=== PATIENT | female | born 1975 | race Caucasian/White ===

== ENCOUNTER 2018-02-23 12:01 | Outpatient (CLI) | payer MEDICAID, SELFPAY ==
--- NOTE | 2018-02-23 11:50 | DI.RAD_ITS ---
SYMPTOMS/DIAGNOSIS: BRONCHITIS, ? PNEUMONIA, J40 PA AND LATERAL CHEST: Pulmonary hyperinflation is demonstrated. There is a small region of increased density involving the lateral portion of the left lower lobe which would be consistent with a small region of pneumonitis. The lungs are otherwise free of infiltrate. There is no pleural effusion. The cardiovascular structures are intact. SUMMARY: Findings consistent with pulmonary hyperinflation and a small region of left lower lobe pneumonitis.
== END 2018-02-23 12:21 ==
PROVIDERS: PCP Family Medicine; Visit Provider Family Medicine
DX: J18.9 Pneumonia, unspecified organism (principal); J40 Bronchitis, not specified as acute or chronic; J98.4 Other disorders of lung
CPT/HCPCS: 71046

== ENCOUNTER 2018-03-27 10:22 | Emergency (ER) | payer MEDICAID, SELFPAY ==
[2018-03-27 10:31] VITALS: BP 128/88; PULSE 79; RESP 16; TEMP 37; O2SAT 100
--- NOTE | 2018-03-27 10:48 | W.ED.GENAD ---
Discharge Plan Disposition Patient Disposition: HOME Condition: Good Discharge Details Chief Complaint: Cellulitis Clinical Impression: Abscess of left leg Primary Care Provider: Job Mars ED Provider: Delano Moon Home Meds and New Rx's Prescriptions: New sulfamethoxazole-trimethoprim [Bactrim DS] 800-160 mg tablet 1 tab PO BID Qty: 14 RF: 0 amoxicillin-pot clavulanate [Augmentin] 875-125 mg tablet 1 tab PO BID Qty: 14 RF: 0 Continue dexmethylphenidate 10 mg tablet 10 mg PO DAILY RF: 0 gabapentin 300 mg capsule 900 mg PO TID RF: 0 topiramate [Topamax] 50 mg tablet 50 mg PO BID RF: 0 dexmethylphenidate 30 mg capsule,ER biphasic 50-50 30 mg PO QAM RF: 0 bupropion HCl [Wellbutrin XL] 150 mg tablet extended release 24 hr 300 mg PO DAILY RF: 0 albuterol sulfate [Ventolin HFA] 90 mcg/actuation HFA aerosol inhaler 1 puff IH Q6H PRN (Reason: shortness of breath or wheezing) Qty: 8.5 RF: 3 trazodone 100 MG tablet 100 mg PO HS Qty: 90 RF: 0 Discharge Instructions Instructions: Abscess (ED) Additional Instructions: if you have high fevers or redness spreading up the leg return to the emergency department follow up with your primary care provider within 2 weeks Discharge Data Discharge Physician: Delano Moon Medical Decision Making 42 yo female with hx of opiate addiction comes in with wound to the left lower leg for about a week, apparently she relapsed recently and injected wellbutrin a few weeks ago in multiple areas. Has multiple areas on her arms and legs where she injected, with the only two at this time that appear infected on the right and left lower leg. She appears to have had an abscess of the right lower leg that is already opened. I incised the left leg abscess as well. No fevers, no severe pain or crepitus so doubt nec fasc or sepsis. Denies losing any needle tips so do not feel xray for foreign body indicated. Will start po abx, advised f/u with pcp and return precautions given she has a therapist she sees for addiction and declined any additional services for her addiction at this time Differential Diagnosis abscess, cellulitis HPI General Mode of arrival: ambulatory. Date/Time Provider Initiated Documentation: 03/27/18 10:30. Limitations to Documentation: no limitations. Information obtained by: patient. History of Present Illness 42 year old F presents to the emergency department with the chief complaint of left leg abscess, described as mild, with intensity rated at 2. Quality is described as burning, and is localized to the left and lower extremity. Patient reports no radiation. Patient started experiencing this week(s) (1) and it has been constant. No relieving factors improve symptom(s), No exacerbating factors reported . Patient notes no other symptoms.. Patient did receive the following treatments prior to arrival, none Related Data Home Medications Medication Instructions Recorded Confirmed trazodone 100 mg PO HS #90 tab-cap 06/26/17 03/27/18 bupropion HCl XL 150 mg 24 hr 300 mg PO DAILY tab-cap 02/09/18 03/27/18 tablet, extended release dexmethylphenidate 10 mg tablet 10 mg PO DAILY tab 02/09/18 03/27/18 dexmethylphenidate ER 30 mg 30 mg PO QAM 02/09/18 03/27/18 capsule,extended release [id number] gabapentin 300 mg capsule 900 mg PO TID cap 02/09/18 03/27/18 topiramate 50 mg tablet 50 mg PO BID 02/09/18 03/27/18 albuterol sulfate HFA 90 1 puff IH Q6H PRN #8.5 gm 02/23/18 03/27/18 mcg/actuation aerosol inhaler amoxicillin-pot clavulanate 1 tab PO BID #14 tab 03/27/18 [Augmentin] sulfamethoxazole-trimethoprim 1 tab PO BID #14 tab 03/27/18 [Bactrim DS] Previous Rx's Medication Instructions Recorded trazodone 100 mg PO HS #90 tab-cap 06/26/17 albuterol sulfate HFA 90 1 puff IH Q6H PRN #8.5 gm 02/23/18 mcg/actuation aerosol inhaler amoxicillin-pot clavulanate 1 tab PO BID #14 tab 03/27/18 [Augmentin] sulfamethoxazole-trimethoprim 1 tab PO BID #14 tab 03/27/18 [Bactrim DS] Allergies Allergy/AdvReac Type Severity Reaction Status Date / Time diphenhydramine HCl AdvReac paradoxical Verified 03/27/18 10:35 [From Benadryl] stimulant General Stated Complaint: Cellulitis CARMINE: 4 Review of Systems Review of Systems All systems reviewed & are unremarkable except as noted in HPI and below Constitutional Denies chills, Denies fever(s) and Denies weakness Eyes Denies loss of vision ENT Denies change in voice Cardiovascular Denies chest pain and Denies dyspnea Respiratory Denies dyspnea Gastrointestinal Denies abdominal pain, Denies nausea and Denies vomiting Genitourinary Denies dysuria Musculoskeletal Denies joint swelling Neurologic Denies loss of vision and Denies weakness Psychiatric Denies depression Endocrine Denies cold intolerance and Denies heat intolerance Allergic/Immunologic Denies urticaria PFSH Family History Father Alcohol abuse Mother No problems noted. 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 working smoke detector in home: Yes fire extinguisher in home: Yes carbon monox detector in home: Yes firearms in home: No victim of physical abuse: No victim of emotional abuse: No victim of sexual abuse: No Surgical History History of dilatation and curettage (Acute) History of dilatation and curettage (Inactive) Exam Const General: no acute distress Orientation: alert HENMT Head: normal to inspection Ears: external ears normal General nose exam: external nose normal Mouth: moist mucous membranes Eyes General: appearance normal, both eyes and all related structures Neck Neck: normal visual inspection Resp Effort & Inspection: normal respiratory effort and able to speak in complete sentences Cardio Rate: regular rate Skin General skin exam: other (left leg abscess 1x2cm in anterior mid tibia with 1cm surrounding erythema, no crepitus or severe pain, open right medial lower leg wound with 1cm erythema, no crepitus or severe pain) Neuro General: alert and oriented x3 Psych Mental Status: mental status grossly normal Course Vital Signs Temperature 37 C 03/27/18 10:31 Pulse 79 03/27/18 10:31 Respiratory Rate 16 03/27/18 10:31 Blood Pressure 128/88 03/27/18 10:31 Pulse Oximetry 100 03/27/18 10:31 Temperature 37 C 03/27/18 10:31 Temperature Source Skin 03/27/18 10:31 Pulse 79 03/27/18 10:31 Respiratory Rate 16 03/27/18 10:31 Respiratory Effort Non-Labored 03/27/18 10:31 Blood Pressure 128/88 03/27/18 10:31 Pulse Oximetry 100 03/27/18 10:31 Oxygen Delivery Method Room Air 03/27/18 10:31 Oxygen Flow Rate 0 03/27/18 10:31 Pain Level 6 03/27/18 10:31 Procedures Abscess I/D Site: Lower Extremity Side (if applicable): Left Sedation/analgesia: None Local Anesthetic: Lidocaine 1% Amount of anesthesia used (mL): 5 Technique: Incised with #11 Blade Amount of fluid expressed (mL): 10 Irrigation: Yes Packing used?: None Complications: Other (none)
--- NOTE | 2018-03-27 10:55 | ED.GENADUL_ITS ---
Discharge Plan Disposition Patient Disposition: HOME Condition: Good Discharge Details Chief Complaint: Cellulitis Clinical Impression: Abscess of left leg Primary Care Provider: Job Mars ED Provider: Delano Moon Home Meds and New Rx's Prescriptions: New sulfamethoxazole-trimethoprim [Bactrim DS] 800-160 mg tablet 1 tab PO BID Qty: 14 RF: 0 amoxicillin-pot clavulanate [Augmentin] 875-125 mg tablet 1 tab PO BID Qty: 14 RF: 0 Continue dexmethylphenidate 10 mg tablet 10 mg PO DAILY RF: 0 gabapentin 300 mg capsule 900 mg PO TID RF: 0 topiramate [Topamax] 50 mg tablet 50 mg PO BID RF: 0 dexmethylphenidate 30 mg capsule,ER biphasic 50-50 30 mg PO QAM RF: 0 bupropion HCl [Wellbutrin XL] 150 mg tablet extended release 24 hr 300 mg PO DAILY RF: 0 albuterol sulfate [Ventolin HFA] 90 mcg/actuation HFA aerosol inhaler 1 puff IH Q6H PRN (Reason: shortness of breath or wheezing) Qty: 8.5 RF: 3 trazodone 100 MG tablet 100 mg PO HS Qty: 90 RF: 0 Discharge Instructions Instructions: Abscess (ED) Additional Instructions: if you have high fevers or redness spreading up the leg return to the emergency department follow up with your primary care provider within 2 weeks Discharge Data Discharge Physician: Delano Moon Medical Decision Making 42 yo female with hx of opiate addiction comes in with wound to the left lower leg for about a week, apparently she relapsed recently and injected wellbutrin a few weeks ago in multiple areas. Has multiple areas on her arms and legs where she injected, with the only two at this time that appear infected on the right and left lower leg. She appears to have had an abscess of the right lower leg that is already opened. I incised the left leg abscess as well. No fevers, no severe pain or crepitus so doubt nec fasc or sepsis. Denies losing any needle tips so do not feel xray for foreign body indicated. Will start po abx, advised f/u with pcp and return precautions given she has a therapist she sees for addiction and declined any additional services for her addiction at this time Differential Diagnosis abscess, cellulitis HPI General Mode of arrival: ambulatory . Date/Time Provider Initiated Documentation: 03/27/18 10:30 . Limitations to Documentation: no limitations . Information obtained by: patient . History of Present Illness 42 year old F presents to the emergency department with the chief complaint of left leg abscess, described as mild, with intensity rated at 2. Quality is described as burning, and is localized to the left and lower extremity. Patient reports no radiation. Patient started experiencing this week(s) (1) and it has been constant. No relieving factors improve symptom(s), No exacerbating factors reported . Patient notes no other symptoms.. Patient did receive the following treatments prior to arrival, none Related Data Home Medications Medication Instructions Recorded Confirmed trazodone 100 mg PO HS #90 tab-cap 06/26/17 03/27/18 bupropion HCl XL 150 mg 24 hr 300 mg PO DAILY tab-cap 02/09/18 03/27/18 tablet, extended release dexmethylphenidate 10 mg tablet 10 mg PO DAILY tab 02/09/18 03/27/18 dexmethylphenidate ER 30 mg 30 mg PO QAM 02/09/18 03/27/18 capsule,extended release [id number] gabapentin 300 mg capsule 900 mg PO TID cap 02/09/18 03/27/18 topiramate 50 mg tablet 50 mg PO BID 02/09/18 03/27/18 albuterol sulfate HFA 90 1 puff IH Q6H PRN #8.5 gm 02/23/18 03/27/18 mcg/actuation aerosol inhaler amoxicillin-pot clavulanate 1 tab PO BID #14 tab 03/27/18 [Augmentin] sulfamethoxazole-trimethoprim 1 tab PO BID #14 tab 03/27/18 [Bactrim DS] Previous Rx's Medication Instructions Recorded trazodone 100 mg PO HS #90 tab-cap 06/26/17 albuterol sulfate HFA 90 1 puff IH Q6H PRN #8.5 gm 02/23/18 mcg/actuation aerosol inhaler amoxicillin-pot clavulanate 1 tab PO BID #14 tab 03/27/18 [Augmentin] sulfamethoxazole-trimethoprim 1 tab PO BID #14 tab 03/27/18 [Bactrim DS] Allergies Allergy/AdvReac Type Severity Reaction Status Date / Time diphenhydramine HCl AdvReac paradoxical Verified 03/27/18 10:35 [From Benadryl] stimulant General Stated Complaint: Cellulitis CARMINE: 4 Review of Systems Review of Systems All systems reviewed & are unremarkable except as noted in HPI and below Constitutional Denies chills, Denies fever(s) and Denies weakness Eyes Denies loss of vision ENT Denies change in voice Cardiovascular Denies chest pain and Denies dyspnea Respiratory Denies dyspnea Gastrointestinal Denies abdominal pain, Denies nausea and Denies vomiting Genitourinary Denies dysuria Musculoskeletal Denies joint swelling Neurologic Denies loss of vision and Denies weakness Psychiatric Denies depression Endocrine Denies cold intolerance and Denies heat intolerance Allergic/Immunologic Denies urticaria PFSH Family History Father Alcohol abuse Mother No problems noted. 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 working smoke detector in home: Yes fire extinguisher in home: Yes carbon monox detector in home: Yes firearms in home: No victim of physical abuse: No victim of emotional abuse: No victim of sexual abuse: No Surgical History History of dilatation and curettage (Acute) History of dilatation and curettage (Inactive) Exam Const General: no acute distress Orientation: alert HENMT Head: normal to inspection Ears: external ears normal General nose exam: external nose normal Mouth: moist mucous membranes Eyes General: appearance normal, both eyes and all related structures Neck Neck: normal visual inspection Resp Effort & Inspection: normal respiratory effort and able to speak in complete sentences Cardio Rate: regular rate Skin General skin exam: other (left leg abscess 1x2cm in anterior mid tibia with 1cm surrounding erythema, no crepitus or severe pain, open right medial lower leg wound with 1cm erythema, no crepitus or severe pain) Neuro General: alert and oriented x3 Psych Mental Status: mental status grossly normal Course Vital Signs Temperature 37 C 03/27/18 10:31 Pulse 79 03/27/18 10:31 Respiratory Rate 16 03/27/18 10:31 Blood Pressure 128/88 03/27/18 10:31 Pulse Oximetry 100 03/27/18 10:31 Temperature 37 C 03/27/18 10:31 Temperature Source Skin 03/27/18 10:31 Pulse 79 03/27/18 10:31 Respiratory Rate 16 03/27/18 10:31 Respiratory Effort Non-Labored 03/27/18 10:31 Blood Pressure 128/88 03/27/18 10:31 Pulse Oximetry 100 03/27/18 10:31 Oxygen Delivery Method Room Air 03/27/18 10:31 Oxygen Flow Rate 0 03/27/18 10:31 Pain Level 6 03/27/18 10:31 Procedures Abscess I/D Site: Lower Extremity Side (if applicable): Left Sedation/analgesia: None Local Anesthetic: Lidocaine 1% Amount of anesthesia used (mL): 5 Technique: Incised with #11 Blade Amount of fluid expressed (mL): 10 Irrigation: Yes Packing used?: None Complications: Other (none)
== END 2018-03-27 11:01 | disposition home or self-care (01) ==
LOC: ER 11:13
PROVIDERS: Emergency Provider Emergency Medicine; PCP Family Medicine
DX: L02.416 Cutaneous abscess of left lower limb (principal); L02.415 Cutaneous abscess of right lower limb; F11.288 Opioid dependence with other opioid-induced disorder
CPT/HCPCS: 10060

== ENCOUNTER 2018-06-30 10:39 | Emergency (ER) | payer MEDICAID, SELFPAY ==
--- NOTE | 2018-06-30 10:40 | W.ED.GENAD ---
Discharge Plan Disposition Patient Disposition: HOME Condition: Stable Discharge Details Chief Complaint: Cellulitis Clinical Impression: Abscess of leg, right Primary Care Provider: Job Mars ED Provider: Delano Moon Home Meds and New Rx's Prescriptions: New sulfamethoxazole-trimethoprim [Bactrim DS] 800-160 mg tablet 1 tab PO BID Qty: 14 RF: 0 amoxicillin-pot clavulanate [Augmentin] 875-125 mg tablet 1 tab PO BID Qty: 14 RF: 0 Continued dexmethylphenidate 10 mg tablet 10 mg PO DAILY RF: 0 gabapentin 300 mg capsule 900 mg PO TID RF: 0 topiramate [Topamax] 50 mg tablet 50 mg PO BID RF: 0 dexmethylphenidate 30 mg capsule,ER biphasic 50-50 30 mg PO QAM RF: 0 Ventolin HFA 90 mcg/actuation HFA aerosol inhaler 1 puff IH Q6H PRN (Reason: shortness of breath or wheezing) Qty: 8.5 RF: 3 trazodone 100 MG tablet 100 mg PO HS Qty: 90 RF: 0 Multi For Her 18 mg iron-600 mcg-40 mcg Capsule 1 tab-cap PO QAM RF: 0 Discharge Instructions Instructions: Abscess (ED) Additional Instructions: You had an abscess drained Try and soak the wound several times a day you should be contacted with an appointment with general surgery for follow up if you have severe worsening pain or fevers, or redness spreading up/down the leg return to the emergency department Medical Decision Making 42 yo female with prior hx of substance abuse but has been sober for months per pt, comes in with several days of rash to the right posterior calf. Denies fevers, chills or severe pain. She has a 3x4 cm fluctuance with overlying erythema of the proximal posterior right lower leg. Has no crepitus or other findings to suggest nec fasc. I incised and drained copious amounts of purulent bloody material. Will start po abx and have her f/u with general surgery for abscess recheck in case it needs to be redrained. HAs no fever and apperas well systemically so doubt sepsis at this time. Return precautions given Differential Diagnosis abscess, cellulitis HPI General Mode of arrival: ambulatory. Date/Time Provider Initiated Documentation: 06/30/18 10:39. Limitations to Documentation: no limitations. Information obtained by: patient. History of Present Illness 42 year old F presents to the emergency department with the chief complaint of right leg rash, described as moderate, with intensity rated at 4. Quality is described as aching, and is localized to the right and lower extremity. Patient reports no radiation. Patient started experiencing this day(s) (2) and it has been constant. No relieving factors improve symptom(s), No exacerbating factors reported . Patient did receive the following treatments prior to arrival, none Related Data Home Medications Medication Instructions Recorded Confirmed trazodone 100 mg PO HS #90 tab-cap 06/26/17 06/30/18 dexmethylphenidate 10 mg tablet 10 mg PO DAILY tab 02/09/18 06/30/18 dexmethylphenidate ER 30 mg 30 mg PO QAM 02/09/18 06/30/18 capsule,extended release [id number] gabapentin 300 mg capsule 900 mg PO TID cap 02/09/18 06/30/18 topiramate 50 mg tablet 50 mg PO BID 02/09/18 06/30/18 albuterol sulfate HFA 90 1 puff IH Q6H PRN #8.5 gm 02/23/18 06/30/18 mcg/actuation aerosol inhaler Multi For Her 1 tab-cap PO QAM 06/30/18 06/30/18 amoxicillin-pot clavulanate 1 tab PO BID #14 tab 06/30/18 [Augmentin] sulfamethoxazole-trimethoprim 1 tab PO BID #14 tab 06/30/18 [Bactrim DS] Previous Rx's Medication Instructions Recorded trazodone 100 mg PO HS #90 tab-cap 06/26/17 albuterol sulfate HFA 90 1 puff IH Q6H PRN #8.5 gm 02/23/18 mcg/actuation aerosol inhaler amoxicillin-pot clavulanate 1 tab PO BID #14 tab 06/30/18 [Augmentin] sulfamethoxazole-trimethoprim 1 tab PO BID #14 tab 06/30/18 [Bactrim DS] Allergies Allergy/AdvReac Type Severity Reaction Status Date / Time diphenhydramine HCl AdvReac paradoxical Verified 06/30/18 10:47 [From Benadryl] stimulant General CARMINE: 4 Review of Systems Review of Systems All systems reviewed & are unremarkable except as noted in HPI and below Constitutional Denies chills, Denies fever(s) and Denies weakness Eyes Denies loss of vision ENT Denies change in voice Cardiovascular Denies chest pain and Denies dyspnea Respiratory Denies dyspnea Gastrointestinal Denies abdominal pain, Denies nausea and Denies vomiting Genitourinary Denies dysuria Musculoskeletal Denies joint swelling Neurologic Denies loss of vision and Denies weakness Psychiatric Denies depression Endocrine Denies cold intolerance and Denies heat intolerance PFSH Social History adopted: No foster care: Yes household members: significant other number of children: 3 pets and animals: Yes Smoking/Tobacco Use Status: Current every day alcohol intake: former substance use type: former substance user Date of last use: December 2017 [place] for 30d seatbelt use: always helmet use: Yes 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 working smoke detector in home: Yes fire extinguisher in home: Yes carbon monox detector in home: Yes firearms in home: No victim of physical abuse: No victim of emotional abuse: No victim of sexual abuse: No Exam Const General: no acute distress Orientation: alert HENMT Head: normal to inspection Ears: external ears normal General nose exam: external nose normal Mouth: moist mucous membranes Eyes General: appearance normal, both eyes and all related structures Neck Neck: normal visual inspection Resp Effort & Inspection: normal respiratory effort and able to speak in complete sentences Cardio Rate: regular rate Skin General skin exam: elasticity normal Neuro General: alert and oriented x3 Extrem General: full ROM and normal capillary refill Psych Mental Status: mental status grossly normal Procedures Abscess I/D Site: Lower Extremity Side (if applicable): Right Local Anesthetic: Lidocaine 2% Amount of anesthesia used (mL): 5 Technique: Incised with #11 Blade Amount of fluid expressed (mL): 10 Irrigation: No Packing used?: None Complications: Bleeding
[2018-06-30 10:43] VITALS: BP 143/86; PULSE 14; TEMP 36.6; O2SAT 99
--- NOTE | 2018-06-30 10:56 | ED.GENADUL_ITS ---
Discharge Plan Disposition Patient Disposition: HOME Condition: Stable Discharge Details Chief Complaint: Cellulitis Clinical Impression: Abscess of leg, right Primary Care Provider: Job Mars ED Provider: Delano Moon Home Meds and New Rx's Prescriptions: New sulfamethoxazole-trimethoprim [Bactrim DS] 800-160 mg tablet 1 tab PO BID Qty: 14 RF: 0 amoxicillin-pot clavulanate [Augmentin] 875-125 mg tablet 1 tab PO BID Qty: 14 RF: 0 Continued dexmethylphenidate 10 mg tablet 10 mg PO DAILY RF: 0 gabapentin 300 mg capsule 900 mg PO TID RF: 0 topiramate [Topamax] 50 mg tablet 50 mg PO BID RF: 0 dexmethylphenidate 30 mg capsule,ER biphasic 50-50 30 mg PO QAM RF: 0 Ventolin HFA 90 mcg/actuation HFA aerosol inhaler 1 puff IH Q6H PRN (Reason: shortness of breath or wheezing) Qty: 8.5 RF: 3 trazodone 100 MG tablet 100 mg PO HS Qty: 90 RF: 0 Multi For Her 18 mg iron-600 mcg-40 mcg Capsule 1 tab-cap PO QAM RF: 0 Discharge Instructions Instructions: Abscess (ED) Additional Instructions: You had an abscess drained Try and soak the wound several times a day you should be contacted with an appointment with general surgery for follow up if you have severe worsening pain or fevers, or redness spreading up/down the le g return to the emergency department Medical Decision Making 42 yo female with prior hx of substance abuse but has been sober for months per pt, comes in with several days of rash to the right posterior calf. Denies fevers, chills or severe pain. She has a 3x4 cm fluctuance with overlying erythema of the proximal posterior right lower leg. Has no crepitus or other findings to suggest nec fasc. I incised and drained copious amounts of purulent bloody material. Will start po abx and have her f/u with general surgery for abscess recheck in case it needs to be redrained. HAs no fever and apperas well systemically so doubt sepsis at this time. Return precautions given Differential Diagnosis abscess, cellulitis HPI General Mode of arrival: ambulatory . Date/Time Provider Initiated Documentation: 06/30/18 10:39 . Limitations to Documentation: no limitations . Information obtained by: patient . History of Present Illness 42 year old F presents to the emergency department with the chief complaint of right leg rash, described as moderate, with intensity rated at 4. Quality is described as aching, and is localized to the right and lower extremity. Patient reports no radiation. Patient started experiencing this day(s) (2) and it has been constant. No relieving factors improve symptom(s), No exacerbating factors reported . Patient did receive the following treatments prior to arrival, none Related Data Home Medications Medication Instructions Recorded Confirmed trazodone 100 mg PO HS #90 tab-cap 06/26/17 06/30/18 dexmethylphenidate 10 mg tablet 10 mg PO DAILY tab 02/09/18 06/30/18 dexmethylphenidate ER 30 mg 30 mg PO QAM 02/09/18 06/30/18 capsule,extended release [id number] gabapentin 300 mg capsule 900 mg PO TID cap 02/09/18 06/30/18 topiramate 50 mg tablet 50 mg PO BID 02/09/18 06/30/18 albuterol sulfate HFA 90 1 puff IH Q6H PRN #8.5 gm 02/23/18 06/30/18 mcg/actuation aerosol inhaler Multi For Her 1 tab-cap PO QAM 06/30/18 06/30/18 amoxicillin-pot clavulanate 1 tab PO BID #14 tab 06/30/18 [Augmentin] sulfamethoxazole-trimethoprim 1 tab PO BID #14 tab 06/30/18 [Bactrim DS] Previous Rx's Medication Instructions Recorded trazodone 100 mg PO HS #90 tab-cap 06/26/17 albuterol sulfate HFA 90 1 puff IH Q6H PRN #8.5 gm 02/23/18 mcg/actuation aerosol inhaler amoxicillin-pot clavulanate 1 tab PO BID #14 tab 06/30/18 [Augmentin] sulfamethoxazole-trimethoprim 1 tab PO BID #14 tab 06/30/18 [Bactrim DS] Allergies Allergy/AdvReac Type Severity Reaction Status Date / Time diphenhydramine HCl AdvReac paradoxical Verified 06/30/18 10:47 [From Benadryl] stimulant General CARMINE: 4 Review of Systems Review of Systems All systems reviewed & are unremarkable except as noted in HPI and below Constitutional Denies chills, Denies fever(s) and Denies weakness Eyes Denies loss of vision ENT Denies change in voice Cardiovascular Denies chest pain and Denies dyspnea Respiratory Denies dyspnea Gastrointestinal Denies abdominal pain, Denies nausea and Denies vomiting Genitourinary Denies dysuria Musculoskeletal Denies joint swelling Neurologic Denies loss of vision and Denies weakness Psychiatric Denies depression Endocrine Denies cold intolerance and Denies heat intolerance PFSH Social History adopted: No foster care: Yes household members: significant other number of children: 3 pets and animals: Yes Smoking/Tobacco Use Status: Current every day alcohol intake: former substance use type: former substance user Date of last use: December 2017 Marco Antonio [place] for 30d seatbelt use: always helmet use: Yes 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 working smoke detector in home: Yes fire extinguisher in home: Yes carbon monox detector in home: Yes firearms in home: No victim of physical abuse: No victim of emotional abuse: No victim of sexual abuse: No Exam Const General: no acute distress Orientation: alert HENMT Head: normal to inspection Ears: external ears normal General nose exam: external nose normal Mouth: moist mucous membranes Eyes General: appearance normal, both eyes and all related structures Neck Neck: normal visual inspection Resp Effort & Inspection: normal respiratory effort and able to speak in complete sentences Cardio Rate: regular rate Skin General skin exam: elasticity normal Neuro General: alert and oriented x3 Extrem General: full ROM and normal capillary refill Psych Mental Status: mental status grossly normal Procedures Abscess I/D Site: Lower Extremity Side (if applicable): Right Local Anesthetic: Lidocaine 2% Amount of anesthesia used (mL): 5 Technique: Incised with #11 Blade Amount of fluid expressed (mL): 10 Irrigation: No Packing used?: None Complications: Bleeding
--- NOTE | 2018-07-01 09:15 | PDOC.ERCMPRO ---
Care Management Progress Note 07/01-Dr. Moon requested assistance with a surgical f/u within a week for wound check. Referral faxed to [facility] this am.
--- NOTE | 2018-07-01 09:17 | CMPROGNOTE_ITS ---
Care Management Progress Note 07/01-Dr. Moon requested assistance with a surgical f/u within a week for wound check. Referral faxed to [facility] this am.
== END 2018-06-30 11:17 | disposition home or self-care (01) ==
PROVIDERS: Emergency Provider Emergency Medicine; PCP Family Medicine
DX: L02.415 Cutaneous abscess of right lower limb (principal)
CPT/HCPCS: 10060; 87077; 87070; 87205

== ENCOUNTER 2019-01-12 12:23 | Emergency (ER) | payer MEDICAID, SELFPAY ==
[2019-01-12 12:23] VITALS: BP 113/87; PULSE 84; RESP 18; TEMP 36.6; O2SAT 99
--- NOTE | 2019-01-12 12:30 | W.ED.GENAD ---
Discharge Plan Disposition Patient Disposition: HOME Condition: Fair Discharge Details Chief Complaint: OD/Poison Clinical Impression: Overdose, Peripheral nerve palsy Primary Care Provider: Job Mars ED Provider: Aryan Salamanca Home Meds and New Rx's Prescriptions: No Action Ventolin HFA 90 mcg/actuation HFA aerosol inhaler 1 puff IH Q6H PRN (Reason: shortness of breath or wheezing) Qty: 8.5 RF: 3 trazodone 100 MG tablet 100 mg PO HS Qty: 90 RF: 0 dexmethylphenidate 35 mg capsule,ER biphasic 50-50 35 mg PO QAM RF: 0 gabapentin 300 mg capsule 800 mg PO TID RF: 0 topiramate [Topamax] 50 mg tablet 25 mg PO BID RF: 0 Multi For Her 18 mg iron-600 mcg-40 mcg Capsule 1 tab-cap PO QAM RF: 0 sulfamethoxazole-trimethoprim [Bactrim DS] 800-160 mg tablet 1 tab PO BID Qty: 14 RF: 0 amoxicillin-pot clavulanate [Augmentin] 875-125 mg tablet 1 tab PO BID Qty: 14 RF: 0 Discharge Instructions Instructions: Opioid Overdose (ED) Additional Instructions: Numbness and tingling in your feet can be secondary to a peripheral nerve palsy however there is concern that there may be something in your brain or spine. Although this is less likely if at any point he would like the imaging that we discussed please return immediately for this. Please follow-up closely with your primary care provider at your scheduled appointment on Thursday. If you need any help or resources for your struggles with opiate please contact us for help. Please use the Narcan as directed. If you notice any worsening of your symptoms, or any new symptoms such as vomiting, diarrhea, fever, chills, shortness of breath, chest pain, numbness, weakness, or fainting , please return immediately to the emergency department for reevaluation. Please follow up with your primary care provider as soon as possible for reassessment and reevaluation. As always, it was a pleasure participating in your medical care today. Referrals: Job Mars DO [Primary Care Provider] - Medical Decision Making This is a 43-year-old female with a past medical history of illicit drug use who presents today for overdose. She states that earlier today she snorted notable amount of heroin, and subsequently overdose. She was given Narcan by her significant other, and then Narcan by EMS which brought her back to normal mental status after an initial episode of unresponsiveness but no apnea. She does admit to numbness and tingling in her feet bilaterally as well as mild weakness in the feet but normal sensation and strength for the knees, thighs and hips. The remainder of her exam is otherwise benign. No focal neurologic deficits aside for what is noted in the feet. Suspect that the foot issue secondary to peripheral etiology from her being in the seated position on her buttock for an extended period of time. The patient is refusing any imaging or labs at this time. She does not want any help or resources. She denies any homicidal or suicidal ideations. We will observe and reassess for the Narcan to be worn off. 2:52 PM Prolonged observation. Greater than 2 hours was observed. The patient had no relapse into decreased mental status, hypoxemia, or bradypnea. Repeat physical exam was performed, the patient continues to demonstrate normal strength and sensation all the way to the ankle. She is able to flex her knees, and extend her knees, all movements of the hips are normal. 5 out of 5 strength for all components except for the feet. Sensation is present bilaterally for the feet for the dorsal and plantar aspects, sensation is slightly reduced however she does have hot and cold differentiation, pinprick and soft touch sensation throughout her feet. Strength is still notably reduced versus near absent for flexion and extension of the feet and toes. Capillary refill remains brisk, dorsalis pedis posterior tibial pulses are +2 bilaterally. Although the patient's overdose component seems to have resolved, she still demonstrates this notable abnormality for her feet. No other significant abnormality, or signs of vascular compromise. Presentation is notably atypical. I am concerned that it may represent a transient palsy secondary to the position that she was in while overdose. She continues to show no evidence of rectal tone decreased, decrease in perirectal sensation or midline back pain. The remainder of her neuro exam is otherwise benign and normal. I discussed with the patient getting the labs initially discussed, as well as imaging of her head and spine. Discussing the risks and benefits, the patient would like to hold off for the time being on any imaging or labs. She would like to go home immediately. I had a long discussion about the risks of this, including , disability, or other unforeseen consequence. Patient states that she understands this. She has made it very clear that she would like to go home and see how it does. She does follow-up with her primary care provider in the next 48 hours. With no other signs of central nerve cord compression, no other significant abnormalities on exam patient's wishes will be respected and she will be discharged home. We did give her Narcan prior to discharge, to use at home. Did recommend avoiding any illicit substances, as well as the importance of seeking counseling help. Services were provided to the patient, and resources were also made available. Patient does not want any additional help or services at this time. Currently respecting the patient's wishes, but against my own recommendations the patient will be discharged home. We discussed the importance of prompt return if she is any changes in thought in regards to the imaging and labs that we discussed previously. I have extensively reviewed the treatment plan and discharge instructions with the patient and their family. I have addressed all patient concerns at this time. The patient and family was made aware of what symptoms to monitor for that would warrant a return to the emergency department. Discussed the plan with the patient and family, they demonstrate verbal understanding and agreement with our assessment and plan at this time. HPI General Date/Time Provider Initiated Documentation: 01/12/19 12:30. HPI Narrative: This is a pleasant 43-year-old female who presents today for evaluation after overdose. Patient states that prior to arrival she snorted a notable amount of heroin, however it was not more than she normally would. She overdosed after this. The patient was given Narcan by her significant other, and subsequently some more Narcan by EMS at which point she had a complete and normal return of mental status. Since then she has been doing well. She has had no confusion, headache, neck pain, shortness of breath. She has been notably intense with EMS staff. She does admit to tingling in her feet bilaterally. She has overdose in the past. She denies any other complaints at this time. She does not want any labs or imaging at this time. She denies any homicidal or suicidal ideations. She denies any other drug use currently. She denies alcohol intake. She does not want any help, or resources. She states that she was recently discharged from a rehab facility. No other complaints modifying factors at this time. Related Data Home Medications Medication Instructions Recorded Confirmed trazodone 100 mg PO HS #90 tab-cap 06/26/17 06/30/18 albuterol sulfate 90 mcg/actuation 1 puff IH Q6H PRN #8.5 gm 02/23/18 06/30/18 aerosol inhaler Multi For Her 1 tab-cap PO QAM 06/30/18 06/30/18 amoxicillin-pot clavulanate 1 tab PO BID #14 tab 06/30/18 [Augmentin] sulfamethoxazole-trimethoprim 1 tab PO BID #14 tab 06/30/18 [Bactrim DS] dexmethylphenidate 35 mg 35 mg PO QAM 08/17/18 capsule,extended release [id number] gabapentin 300 mg capsule 800 mg PO TID cap 09/28/18 topiramate 50 mg tablet 25 mg PO BID tab 09/28/18 Previous Rx's Medication Instructions Recorded trazodone 100 mg PO HS #90 tab-cap 06/26/17 albuterol sulfate 90 mcg/actuation 1 puff IH Q6H PRN #8.5 gm 02/23/18 aerosol inhaler amoxicillin-pot clavulanate 1 tab PO BID #14 tab 06/30/18 [Augmentin] sulfamethoxazole-trimethoprim 1 tab PO BID #14 tab 06/30/18 [Bactrim DS] Allergies Allergy/AdvReac Type Severity Reaction Status Date / Time diphenhydramine HCl AdvReac paradoxical Verified 01/12/19 12:34 [From Benadryl] stimulant General Stated Complaint: OD/Poison CARMINE: 3 Review of Systems Review of Systems All systems reviewed & are unremarkable except as noted in HPI and below PFSH Social History Smoking/Tobacco Use Status: Current every day Tobacco Type: cigarettes Alcohol Intake: current Alcohol Intake frequency: a few times a week Drug use: Occasionally Substance use type: marijuana and heroin Adopted: No Foster care: Yes Household members: significant other Number of Children: 3 Pets and animals: Yes Seatbelt use: always Helmet use: Yes 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 3.ENT: Atraumatic external nose and ears. Moist MM. Neck: Symmetric, trachea midline, No thyromegaly. 4.CVS: +S1/S2, No murmurs or gallops. Peripheral pulses 2+ and equal in all extremities. Brisk capillary refill in all extremities. 5.RESP: Unlabored respiratory effort. Clear to auscultation bilaterally. No wheezes rales or rhonchi 6.GI: Soft, Nontender/Nondistended, No hepatosplenomegaly. No guarding or rebound. 7.MSK: Normocephalic/Atraumatic, Extremities w/o deformity or ttp No cyanosis or clubbing, Normal movement of all extremities 8.Skin: Warm, Dry. No rashes or lesions. 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 Notable decrease in sensation for her feet bilaterally. Decreased plantar and dorsiflexion strength. No midline tenderness to palpation over the CTLS spine. Normal ROM in flexion, extension, side bend, and rotation. Patient has +5 out of 5 strength in the lower extremities in d knee flexion and extension, hip flexion and extension. There is +2 over 2 dorsalis pedis pulses bilaterally. There is normal sensation to the skin with light touch at the foot, knee, and hip. Normal saddle sensation. Rectal exam demonstrates normal rectal tone and sensation. Reflexes are +2 over 4 in the patellar reflex bilaterally. +5 out of 5 strength in the medial, ulnar, radial nerve distribution bilaterally in the hands as well as intact light touch sensation to these dermatomes on the hands 10.Psych: (AAO) x3. Appropriate mood and affect, somewhat unhappy with her current state and being here in the ED Course Vital Signs Temperature 36.6 C 01/12/19 12:23 Pulse 84 01/12/19 12:23 Respiratory Rate 18 01/12/19 12:23 Blood Pressure 113/87 01/12/19 12:23 Pulse Oximetry 99 01/12/19 12:23 Temperature 36.6 C 01/12/19 12:23 Temperature Source Skin 01/12/19 12:23 Pulse 84 01/12/19 12:23 Respiratory Rate 18 01/12/19 12:23 Blood Pressure 113/87 01/12/19 12:23 Pulse Oximetry 99 01/12/19 12:23 Oxygen Delivery Method Room Air 01/12/19 12:23 Oxygen Flow Rate 0 01/12/19 12:23 Pain Level 0 01/12/19 12:23
== END 2019-01-12 14:58 | disposition home or self-care (01) ==
LOC: ER 15:01
PROVIDERS: Emergency Provider Student in an Organized Health Care Education/Training Program; PCP Family Medicine
DX: T40.1X1A Poisoning by heroin, accidental (unintentional), initial encounter (principal); G58.9 Mononeuropathy, unspecified
CPT/HCPCS: 99283

== ENCOUNTER 2019-01-18 10:44 | Inpatient (IN) | payer MEDICAID, SELFPAY ==
[2019-01-18 10:49] VITALS: BP 121/72; PULSE 74; RESP 12; TEMP 36.6; O2SAT 99
--- NOTE | 2019-01-18 11:36 | ED.GENADUL_ITS ---
Discharge Plan Discharge Details Chief Complaint: Orthopedic Admit Date/Time: 01/18/19 17:12 Admit Provider: Jadiel Shah Attending Provider: Jadiel Shah Primary Care Provider: Job Mars ED Provider: Fidel Cardozo Discharge Data Discharge Date/Time-TO BE ENTERED AT DEPARTURE: 01/18/19 17:43 Medical Decision Making <Seferino Stuart NP - Last Filed: 01/19/19 16:11> Patient presenting to the emergency department for chief complaint of bilateral numbness and tingling to feet and ankles and difficulty moving nails. Patient states that this started after she overdosed on heroin approximately 6 days ago. Patient denies any known injury or trauma and states that they feel like [id number]. Physical exam shows bilateral lower extremity nonpitting edema to both hands and feet, no erythema, sensation to hot cold sharp and dull is intact but slightly diminished on the left more than the right, DTRs are also intact, patient has inability to dorsiflex and plantar flex along with inversion and eversion of the ankles bilateral. Patient does have slight movement of her toes on the right but none on the left. The hip and other lower extremity exam is unremarkable. Patient has no saddle anesthesia, normal bowel bladder function. She denies any chest pain shortness of breath. Plan to check labs due to lower extremity edema along with edema to her hands Review of labs shows a anemia, mildly elevated ESR, AST and ALT elevated negative troponin. Patient has normal BNP. EKG was performed and reviewed with attending physician likely he and shows rate of 60, sinus rhythm, shortened OH but otherwise non-diagnostic. Patient reassessed and continues to complain of symptoms. Reviewed previous records and spoke with patient further and there was notation of this occurring after her overdose as stated and imaging was offered. Patient states that she is mostly here for imaging and because she still cannot normally ambulate. imaging of the lumbar spine and head was ordered. These images were reviewed with radiologist and are negative for any acute findings. Given odd presentation I spoke with Dr. Gee, neurologist, in regards to patient's condition. She recommended PT assessment and given that patient is getting around on a walker she stated possible admission if patient cannot walk appropriately otherwise outpatient follow-up with neurology office. <Fidel Cardozo MD - Last Filed: 01/19/19 02:39> 17:15 -- Care signed out by JOSUÉ Stuart with plan to follow-up on PT and care management recommendations. PT notes patient unable to ambulate and recommends admission given ambulatory dysfunction. Care management agrees with observation hospitalization. I called and spoke with Dr. Shah who will admit the patient. Bridging orders being placed to the floor. HPI <Seferino Stuart NP - Last Filed: 01/19/19 16:11> General Mode of arrival: wheelchair . Date/Time Provider Initiated Documentation: 01/18/19 10:53 . Limitations to Documentation: no limitations . Information obtained by: patient, family and RN notes reviewed . History of Present Illness 43 year old F presents to the emergency department with the chief complaint of feet numbness and swelling to feet and hands, described as moderate, with intensity rated at 6. Quality is described as other (stinging), and is localized to the lower extremity (bilateral feet). Patient started experiencing this day(s) (6) and it has been constant. No relieving factors improve symptom(s), Patient notes no other symptoms.. Patient did receive the following treatments prior to arrival, none Related Data Home Medications Medication Instructions Recorded Confirmed trazodone 100 mg PO HS #90 tab-cap 06/26/17 01/18/19 dexmethylphenidate 35 mg 35 mg PO QAM 08/17/18 01/18/19 capsule,extended release [id number] gabapentin 300 mg capsule 800 mg PO TID cap 09/28/18 01/18/19 topiramate 50 mg tablet 25 mg PO BID tab 09/28/18 01/18/19 Previous Rx's Medication Instructions Recorded trazodone 100 mg PO HS #90 tab-cap 06/26/17 Allergies Allergy/AdvReac Type Severity Reaction Status Date / Time diphenhydramine HCl AdvReac paradoxical Verified 01/18/19 10:55 [From Benadryl] stimulant General Stated Complaint: Orthopedic CARMINE: 3 Review of Systems <Seferino Stuart NP - Last Filed: 01/19/19 16:11> Constitutional Denies chills, Denies fever(s) and Denies headache(s) ENT Denies headache(s) Cardiovascular Denies chest pain, Denies irregular heart rhythm, Reports claudication, Reports leg edema, Denies lightheadedness and Denies dyspnea Respiratory Denies dyspnea Gastrointestinal Denies abdominal pain Musculoskeletal Reports as per HPI, Reports numbness and Reports tingling Neurologic Denies headache(s), Reports numbness, Denies sensory deficit and Reports tingling PFSH <Seferino Stuart NP - Last Filed: 01/19/19 16:11> Medical History Anxiety Depression Opiate dependence Surgical History History of dilatation and curettage (Inactive) History of dilatation and curettage (Acute) Family History Father Alcohol abuse Mother No problems noted. 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 Working smoke detector in home: Yes Fire extinguisher in home: Yes Carbon monox detector in home: Yes Firearms in home: No Do you feel safe at home: Yes Do you feel safe in your relationship?: Yes Victim of physical abuse: No Victim of emotional abuse: No Victim of sexual abuse: No Exam <Seferino Stuart NP - Last Filed: 01/19/19 16:11> Const General: cooperative, healthy appearing, comfortable and no acute distress Orientation: alert, awake and oriented x3 Resp Effort & Inspection: normal respiratory effort and able to speak in complete sentences Auscultation: clear to auscultation bilaterally Cardio Rate: regular rate Rhythm: regular rhythm Heart Sounds: S1 normal, S2 normal, no click, no gallops, no murmurs and no rubs Pulses: dorsalis pedis pulses present bilaterally 2+ and normal peripheral pulses Skin Rashes: no rashes Nails: normal and no splinter hemorrhages Neuro General: alert, awake, oriented x3, tone normal, moves all extremities, not confused, not obtunded and unable to assess gait Cognition: normal cognition Speech: speech normal Motor: strength abnormal distal lower extremity flexion 0 / 5, extension 0 / 5, abduction 0 / 5 and adduction 0 / 5 Sensory Exam: no sensory deficits noted DTR's: Rt Patellar: 2+, Lt Patellar: 2+, Rt Ankle: 1+ and Lt Ankle: 1+ Extrem General: normal capillary refill, no joint enlargement, no calf tenderness bilaterally, edema Laterality: bilateral (hands, wrist down. ) and pedal edema (ankle down) bilaterally (2+ non- pitting) Course <Seferino Stuart NP - Last Filed: 01/19/19 16:11> Vital Signs Temperature 36.6 C 01/18/19 10:49 Pulse 74 01/18/19 10:49 Respiratory Rate 12 01/18/19 10:49 Blood Pressure 121/72 01/18/19 10:49 Pulse Oximetry 99 01/18/19 10:49 Temperature 36.6 C 01/18/19 10:49 Temperature Source Temporal Artery Scan 01/18/19 10:49 Pulse 74 01/18/19 10:49 Respiratory Rate 12 01/18/19 10:49 Respiratory Effort Non-Labored 01/18/19 10:51 Blood Pressure 121/72 01/18/19 10:49 Blood Pressure Position Sitting 01/18/19 10:49 Pulse Oximetry 99 01/18/19 10:49 Oxygen Delivery Method Room Air 01/18/19 10:49 Oxygen Flow Rate 0 01/18/19 10:49 Pain Level 6 01/18/19 10:53 Sign Out <Seferino Stuart NP - Last Filed: 01/19/19 16:11> Sign Out Data: Sign Out Comment: Patient pending physical therapy consult and care management assessment. Last updated by Seferino Stuart NP at 01/18/19 16:29
[2019-01-18 12:40] LABS: Abs Immature Grans 0.01 k/cumm (0.0-0.09); Absolute Basophil Count 0.02 k/cumm (0.0-0.2); Absolute Eosinophil Count 0.29 k/cumm (0.0-0.7); Absolute Monocyte Count 0.56 k/cumm (0.11-0.7); Absolute Neutrophil Count 6.46 k/cumm (1.2-6.7); Basophils % 0.2; Eosinophils % 3.1; HGB 11.1 g/dL (12.0-15.5); Immature Grans % 0.1; Lymphocytes % 20.6; Mean Corp. HGB Concentration 30.8 g/dL (32.0-36.0); Mean Corpuscular Hemoglobin 25.6 pg (27.0-33.0); Mean Corpuscular Volume 82.9 fL (80-95); Mean Platelet Volume 9.4 fL (8.0-11.0); Monocytes % 6.1; Neutrophils % 69.9; Platelet Count 305 x1000/uL (130-400); RBC 4.34 m/cumm (4.00-5.20); RBC Distribution Width 21.1 % (11.7-14.6); White Blood Cell Count 9.24 k/cumm (4.4-10.8)
[2019-01-18 12:54] LABS: Anisocytosis 2+; Diff Comment RBC Morph Reviewed
[2019-01-18 12:57] LABS: Hypochromasia 2+; Microcytosis 2+; Poikilocytes 2+; Polychromasia Present
[2019-01-18 12:58] LABS: Basophilic Stippling 2+
[2019-01-18 13:10] LABS: ALT 136 U/L (12-78); AST 233 U/L (15-37); Albumin 2.9 g/dL (3.4-5.0); Alkaline Phosphatase 107 U/L (46-116); Anion Gap 7.3 mmol/L (3-11); BUN 16 mg/dL (7-18); Bilirubin, Total 0.7 mg/dL (0.2-1.0); CO2 27.7 mmol/L (21.0-32.0); CREATININE 0.81 mg/dL (0.55-1.02); Calcium 8.4 mg/dL (8.5-10.1); Chloride 106 mmol/L (98-107); Glucose 111 mg/dL (70-100); Magnesium 1.9 mg/dL (1.8-2.4); NT-proBNP 251 pg/mL; Potassium 4.1 mmol/L (3.5-5.1); Sodium 141 mmol/L (136-145); Total Protein 7.1 g/dL (6.4-8.2)
[2019-01-18 13:12] LABS: Troponin I < 0.05 ng/mL (0.00-0.06)
[2019-01-18 13:17] LABS: ESR 21 mm/hr (0-20)
--- NOTE | 2019-01-18 15:42 | DI.CT_ITS ---
SYMPTOMS/DIAGNOSIS: NEURO DEFICIT, BILATERAL FOOT WEAKNESS, NUMBNESS, LEFT > RIGHT, S/P FALL 5 DAYS AGO, IV DRUG USER CRANIAL CT: Noncontrast cranial CT was performed. The ventricular system is normal in appearance. There is no evidence of an intracranial mass lesion. There is no evidence of a subdural or epidural hematoma. No focal areas of decreased attenuation are seen. There are apparent chronic changes of mucoperiosteal thickening in right maxillary antrum and a few mastoid air cells. CONCLUSION: Normal noncontrast cranial CT. LUMBOSACRAL SPINE CT: CT examination of the lumbosacral spine was performed utilizing multislice acquisition and multiplanar reconstruction. Visualized portions of the lung bases are unremarkable. Adrenals and kidneys appear intact as visualized. Abdominal aorta is of normal diameter. No bony abnormality seen apart from minimal hypertrophic degenerative changes of the facet joints at L5-S1. There is a disc bulge at L5-S1 without evidence of disc herniation. Otherwise, intervertebral discs appear normal. Neural foramina and bony spinal canal appear normal. SI joints show minimal degenerative change. No adenopathy identified in the visualized pelvis. CONCLUSION: Mild disc bulge at L5-S1. No disc herniation or other significant finding.
--- NOTE | 2019-01-18 16:54 | PT.INIE ---
Date of service: 01/18/19 Time of Service: 16:17 PT Notes Inpatient Physical Therapy Evaluation Date: 01/18/2019 Referring Doctor: Seferino Stuart MD PT Orders: PT CONSULT: Assess gait and ankle weakness Precautions: Fall. Standard. Patient Profile/Admitting Diagnosis: Patient is a 43-year-old female who presented to the ED on 01/18/2019 with chief complaints of numbness and tingling of bilateral feet and ankles that began to appear 6 days ago when she overdosed on heroin and was found on the ground by first responders. CT scan of head and lumbosacral spine were unremarkable. Referral was made to assess safety of gait performance and readiness for discharge. PMHX: Social History/Home Situation: Current Functional Limitations: Inability to safely walk due to bilateral steppage gait Equipment Owned/DME: [facility] Subjective: Patient is agreeable to a PT consult. She states that 6 days ago she started feeling symptoms of numbness on bilateral feet. She reports instability when standing up. She states that she overdosed on heroin 6 days ago and might have fallen as she was found on the ground by first responders. She states she has been able to move her right big toe until today. Objective: General Observation: Patient seen lying in bed upon arrival of this PT. Edema and erythema to bilateral hands and bilateral feet. Multiple small, dry, and shallow wounds seen on bilateral UE and LE. Mental Status: Alert and oriented x4 Pain: 0/10 ROM: Right Upper Extremity: Shoulder Flexion WFL. Shoulder abduction WFL. Elbow flexion WFL. Wrist flexion WFL. Functional opening and closing of hand WFL. Left Upper Extremity: Shoulder Flexion WFL. Shoulder abduction WFL. Elbow flexion WFL. Wrist flexion WFL. Functional opening and closing of hand WFL. Right Lower Extremity: Hip flexion WFL. Hip abduction WFL. Knee flexion 0-90 while seated at edge of ICU bed. Ankle dorsiflexion absent. Ankle in fully plantarflexed position. Left Lower Extremity: Hip flexion WFL. Hip abduction WFL. Knee flexion 0-90 while seated at edge of ICU bed. Ankle dorsiflexion absent. Ankle in fully plantarflexed position. Strength: Right Upper Extremity: Shoulder flexors 5/5. Shoulder abductors 5/5. Elbow flexors 5/5. Elbow extensors 5/5. 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 Left Upper Extremity: Shoulder flexors 5/5. Shoulder abductors 5/5. Elbow flexors 5/5. Elbow extensors 5/5. 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 Right Lower Extremity: Hip flexors 4/5. Hip abductors 4/5. Knee flexors 3-/5. Knee extensors 4/5. Ankle dorsiflexors 1/5. Ankle plantarflexors 1/5. Left Lower Extremity:Hip flexors 4/5. Hip abductors 4/5. Knee flexors 3-/5. Knee extensors 4/5. Ankle dorsiflexors 1/5. Ankle plantarflexors 1/5. Sensation: Diminished as to pressure on bilateral dorsum and plantar aspect of feet Bed Mobility/Transfers: Rolling independent Supine to sit independent Sit to supine independent Sit to stand independent with front wheeled walker Stand to sit independent with front wheeled walker Bed to chair minimal assist with front wheeled walker. Significant foot slap on bilateral LE with the left more affected than the right. Chair to bed minimal assist with front wheeled walker. Significant foot slap on bilateral LE with the left more affected than the right. Gait: Patient was able to lift hip and knee up to advance each leg but is unable to dorsiflex each foot up due to weakness. Will assess for need for bilateral ankle-foot orthoses to increase safety of gait performance. Balance: Static Sitting: Normal Dynamic Sitting: Normal Static Standing: Fair Dynamic Standing: Fair Special Tests: Mobility Limitations Standardized Measure [facility] 6 clicks Basic Mobility Inpatient Short Form: Raw Score: 17 CMS Score: 51% deficit Informed Consent/Education: Patient instructed in purpose of PT consult and plan of care. Assessment: Question heroin-induced bilateral distal lower extremity neuropathy or heroin-induced rhabdomyolysis. Patient presents with clinical signs and symptoms that have resulted to mobility limitations, gait instability, generalized weakness, and impairment of motor control as demonstrated by the following impairment level findings: 1. Decreased strength to B knee flexors, B ankle dorsiflexors 2. Impaired standing balance 3. Impaired activity tolerance 4. Limitation of joint range of motion in B flexion and B dorsiflexion 5. Numbness to bilateral feet 6. Grade 2 non-pitting edema to B hands and B feet Impairments are contributing to the following functional limitations: 1. Increased dependence with transfers 2. Inability to safely ambulate 3. Increase completion time for mobility ADL performance 4. Increased fall risk Patient is assessed as a 85465 moderate complexity based on the following: History: 43-year-old female presenting with bilateral weakness of dorsiflexors, knee flexors, and plantar flexors resulting to ambulatory dysfunction and increased risk of falls Examination: Demonstrable impairment in strength, balance, and range of motion with underlying impairments and functional limitations as documented above Presentation:Evolving Decision Makin moderate complexity DISCHARGE RECOMMENDATIONS: Patient will require skilled PT services to address ongoing B ankle and B knee muscle weakness in order to facilitate return to premorbid independent level. Patient may not be safe to go home today and may benefit from inpatient PT services. Upon discharge from this hospital, patient will benefit from home health PT services in order to progress mobility level using least restrictive assistive ambulatory device/using no device, assess home safety, identify additional equipment needs, and establish a functional maintenance program that will increase ability of patient to remain at home. TREATMENT CODE/TIME: 55876 x 29 minutes beginning at 16:17 PM. Thank you very much for this referral. Maira Noel PT, DPT, CLT [facility]
[2019-01-18 17:45] VITALS: BP 161/97; PULSE 57; RESP 18; TEMP 37.8; O2SAT 100
[2019-01-18 17:49] VITALS: BP 161/97; PULSE 57; RESP 18; TEMP 37.2; O2SAT 100
--- NOTE | 2019-01-18 18:16 | HPE_ITS ---
Date of service: 01/18/19 Time of Service: 18:16 Assessment and Plan (1) Neuropathy: Current visit: Yes Status: Acute Acute distal polyneuropathy. Timing with respect to OD might suggest traumatic compression neuropathy, but this would be unusual to be bilateral. Some concern for possible GBS. Will monitor closely, check PFTs and consider LP. Will consult neuro. History of Present Illness Chief Complaint: weakness Narrative: 43 female woth h/o IVDA. 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 Returns with persistent weakness in feet. W/u in ER of [facility] for bilateral foot drop and due to inability to ambulate she is admitted for further management. She says she thinks the right foot may be starting to Review of Systems Review of Systems All systems reviewed & are unremarkable except as noted in HPI and below PFSH Medical History Anxiety Depression Opiate dependence Surgical History History of dilatation and curettage (Inactive) History of dilatation and curettage (Acute) Family History Father Alcohol abuse Mother No problems noted. 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 Working smoke detector in home: Yes Fire extinguisher in home: Yes Carbon monox detector in home: Yes Firearms in home: No Do you feel safe at home: Yes Do you feel safe in your relationship?: Yes Victim of physical abuse: No Victim of emotional abuse: No Victim of sexual abuse: No Meds Home Medications Medication Instructions Recorded Confirmed Type trazodone 100 mg PO HS #90 tab-cap 06/26/17 01/18/19 Rx dexmethylphenidate 35 mg 35 mg PO QAM 08/17/18 01/18/19 History capsule,extended release [id number] gabapentin 300 mg capsule 800 mg PO TID cap 09/28/18 01/18/19 History topiramate 50 mg tablet 25 mg PO BID tab 09/28/18 01/18/19 History Allergies Allergy/AdvReac Type Severity Reaction Status Date / Time diphenhydramine HCl AdvReac paradoxical Verified 01/18/19 10:55 [From Benadryl] stimulant Exam Narrative Exam Narrative: 161/97, 57, 18, 37.2. HEENT atraumatic; neck supple; lungs clear; heart RRR; abdomen soft NT; extr no edema (hands a little puffy); neuro ox3, CN intact, motor UEs 5/5, LEshiplexors 5/5, knee extension 4/5 on left, 5/5 on right, ankles dorsifelxion 2/5 left, 4/5 right, ankle plantar fglexion 0/5 bilateral; senaory intact light touch; DTRs UEs 1+/=, LEs KJ 1+ right with renforcement, 0 on right, AJs 0 bilateral, toes downgoing Results Labs : 01/18/19 12:30 01/18/19 12:30 Laboratory Results - last 24 hr 01/18/19 01/18/19 12:30 12:30 WBC 9.24 RBC 4.34 Hgb 11.1 L Hct 36.0 MCV 82.9 MCH 25.6 L MCHC 30.8 L RDW 21.1 H Plt Count 305 MPV 9.4 Immature Gran % 0.1 Neutrophils % 69.9 Lymphocytes % 20.6 Monocytes % 6.1 Eosinophils % 3.1 Basophils % 0.2 Absolute Neutrophils 6.46 Absolute Lymphocytes 1.90 Absolute Monocytes 0.56 Absolute Eosinophils 0.29 Absolute Basophils 0.02 Differential Comment Rbc morph reviewed RBC Morphology See below Polychromasia Present Hypochromasia 2+ Poikilocytosis 2+ Basophilic Stippling 2+ Anisocytosis 2+ Microcytosis 2+ ESR 21 H Sodium 141 Potassium 4.1 Chloride 106 Carbon Dioxide 27.7 Anion Gap 7.3 BUN 16 Creatinine 0.81 Estimated GFR/1.73 m2 >= 60.00 Glucose 111 H Calcium 8.4 L Magnesium 1.9 Total Bilirubin 0.7 AST 233 H ALT 136 H Alkaline Phosphatase 107 Troponin I < 0.05 NT-Pro-B Natriuret Pep 251 Total Protein 7.1 Albumin 2.9 L Last Vital Signs Temp 37.2 C 01/18/19 17:49 Pulse 57 L 01/18/19 17:49 Resp 18 01/18/19 17:49 BP 161/97 H 01/18/19 17:49 Pulse Ox 100 01/18/19 17:49
[2019-01-18] MEDS: Gabapentin 400 MG CAP 800 MG PO (20:31)
[2019-01-18] MEDS: Topiramate 25 MG TAB (21:16)
[2019-01-18] MEDS: traZODone 100 MG TAB PO (21:16)
[2019-01-18 21:50] VITALS: BP 161/97; PULSE 57; RESP 18; TEMP 37; O2SAT 100
[2019-01-19 01:11] VITALS: BP 125/87; PULSE 91; RESP 18; TEMP 36.6; O2SAT 99
[2019-01-19 05:40] VITALS: BP 145/89; PULSE 64; RESP 17; TEMP 36.8; O2SAT 99
[2019-01-19 07:45] VITALS: BP 119/82; PULSE 75; RESP 21; TEMP 36.4; O2SAT 99
[2019-01-19] MEDS: Topiramate 50 MG TAB 25 MG PO ×2 (08:14→20:12)
[2019-01-19] MEDS: Gabapentin 400 MG CAP 800 MG PO ×3 (08:14→20:13)
[2019-01-19 11:35] VITALS: BP 148/74; PULSE 69; RESP 22; TEMP 36.5; O2SAT 99
[2019-01-19] MEDS: Normal Saline Flush 10 ML SYR IVP (11:49)
--- NOTE | 2019-01-19 11:51 | W.PM.PROGNOT ---
Date of Service Date of service: 01/19/19 Time of Service: 11:51 Assessment and Plan (1) Neuropathy: Current visit: Yes Status: Acute motor and sensory neuropathy, etiology unclear. guillaine barre is possible although no obvious trigger. also no external trauma to cause neurological deficit. a tick bourne illness is possible and lab testing has been sent. neurology has been consulted, patient may need LP and EMG (2) Transaminitis: Current visit: Yes Status: Acute asymptomatic, will check for viral hepatitis and acetaminophen level. if unrevealing would consider RUQ US (3) Anemia: Current visit: Yes Status: Chronic normocytic anemia. no active bleed. will check iron studies as well as b12/folate Subjective Interval history since last seen: patient admitted with bilteral lower extremity numbness and weakness. RENEE overnight. symptoms remain unchanged this morning. she is having difficulty with ambulation. denies any headache, vision change, joint pain, rash, UE weakness/numbness, or breathing difficulty. Exam Narrative Exam Narrative: GEN: NAD, appears stated age HEENT: NCAT, MMM, sclera anicteric CV: RRR, nl s1 and s2 LUNG: CTAB, normal inspiratory effort ABD: NABS, soft, NT, ND nl s1 and s2 SKIN: no rash, no jaundice MSK: no joint swelling NEURO: AAOx3, CNII-XII intact, notable for diminished sensation over the bilateral anerolateral calves, she is unable to dorsi or plantarflex this left foot, she has minimal ability to dorsiflex the right foot Objective Objective Clinical Data: Abnormal lab results 01/18/19 01/18/19 Range/Units 12:30 12:30 Hgb 11.1 L (12.0-15.5) g/dL MCH 25.6 L (27.0-33.0) pg MCHC 30.8 L (32.0-36.0) g/dL RDW 21.1 H (11.7-14.6) % ESR 21 H (0-20) mm/hr Glucose 111 H (70-100) mg/dL Calcium 8.4 L (8.5-10.1) mg/dL AST 233 H (15-37) U/L ALT 136 H (12-78) U/L Albumin 2.9 L (3.4-5.0) g/dL Vital Signs Temperature 36.4 C L 01/19/19 07:45 Temperature Source Tympanic 01/19/19 07:45 Pulse 75 01/19/19 07:45 Pulse Rhythm Regular 01/19/19 09:53 Respiratory Rate 21 01/19/19 07:45 Respiratory Effort Non-Labored 01/19/19 09:53 Respiratory Depth Normal 01/19/19 09:53 Respiratory Pattern Normal 01/19/19 09:53 Blood Pressure 119/82 01/19/19 07:45 Blood Pressure Position Sitting 01/18/19 10:49 Pulse Oximetry 99 01/19/19 07:45 Oxygen Delivery Method Room Air 01/19/19 07:45 Oxygen Flow Rate 0 01/19/19 07:45 Pain Level 0 01/19/19 07:45 Intake & Output 01/18/19 01/18/19 01/19/19 11:59 23:59 11:59 Intake Total 480 / 480 650 / 650 Balance 480 / 480 650 / 650 Weight 56.699 kg 56.699 kg Intake: IV 50 / 50 Oral 480 / 480 600 / 600 Other: Urine Color Pale Yellow Straw Urine Appearance Clear Urine Odor Normal Stool Size Small Stool Characteristics Formed Voiding Methods Bedside Commode Laboratory Results WBC 9.24 k/cumm (4.4-10.8) 01/18/19 12:30 RBC 4.34 m/cumm (4.00-5.20) 01/18/19 12:30 Hgb 11.1 g/dL (12.0-15.5) L 01/18/19 12:30 Hct 36.0 % (36.0-46.0) 01/18/19 12:30 MCV 82.9 fL (80-95) 01/18/19 12:30 MCH 25.6 pg (27.0-33.0) L 01/18/19 12:30 MCHC 30.8 g/dL (32.0-36.0) L 01/18/19 12:30 RDW 21.1 % (11.7-14.6) H 01/18/19 12:30 Plt Count 305 x1000/uL (130-400) 01/18/19 12:30 MPV 9.4 fL (8.0-11.0) 01/18/19 12:30 Immature Gran % 0.1 01/18/19 12:30 69.9 01/18/19 12:30 20.6 01/18/19 12:30 6.1 01/18/19 12:30 3.1 01/18/19 12:30 0.2 01/18/19 12:30 Absolute Neutrophils 6.46 k/cumm (1.2-6.7) 01/18/19 12:30 Absolute Lymphocytes 1.90 k/cumm (1.2-3.4) 01/18/19 12:30 Absolute Monocytes 0.56 k/cumm (0.11-0.7) 01/18/19 12:30 Absolute Eosinophils 0.29 k/cumm (0.0-0.7) 01/18/19 12:30 Absolute Basophils 0.02 k/cumm (0.0-0.2) 01/18/19 12:30 Rbc morph reviewed 01/18/19 12:30 RBC Morphology See below 01/18/19 12:30 Present 01/18/19 12:30 2+ 01/18/19 12:30 2+ 01/18/19 12:30 2+ 01/18/19 12:30 2+ 01/18/19 12:30 2+ 01/18/19 12:30 ESR 21 mm/hr (0-20) H 01/18/19 12:30 Sodium 141 mmol/L (136-145) 01/18/19 12:30 Potassium 4.1 mmol/L (3.5-5.1) 01/18/19 12:30 Chloride 106 mmol/L (98-107) 01/18/19 12:30 Carbon Dioxide 27.7 mmol/L (21.0-32.0) 01/18/19 12:30 7.3 mmol/L (3-11) 01/18/19 12:30 BUN 16 mg/dL (7-18) 01/18/19 12:30 0.81 mg/dL (0.55-1.02) 01/18/19 12:30 >= 60.00 (mL/min/1.73m2) 01/18/19 12:30 Glucose 111 mg/dL (70-100) H 01/18/19 12:30 Calcium 8.4 mg/dL (8.5-10.1) L 01/18/19 12:30 Magnesium 1.9 mg/dL (1.8-2.4) 01/18/19 12:30 0.7 mg/dL (0.2-1.0) 01/18/19 12:30 AST 233 U/L (15-37) H 01/18/19 12:30 ALT 136 U/L (12-78) H 01/18/19 12:30 107 U/L (46-116) 01/18/19 12:30 < 0.05 ng/mL (0.00-0.06) 01/18/19 12:30 NT-Pro-B Natriuret Pep 251 pg/mL (-299) 01/18/19 12:30 7.1 g/dL (6.4-8.2) 01/18/19 12:30 2.9 g/dL (3.4-5.0) L 01/18/19 12:30
[2019-01-19 12:22] LABS: Creatine Kinase 53 U/L (26-192)
[2019-01-19 12:46] LABS: ALT 137 U/L (12-78); AST 226 U/L (15-37); Albumin 2.5 g/dL (3.4-5.0); Alkaline Phosphatase 94 U/L (46-116); Anion Gap 8.2 mmol/L (3-11); BUN 14 mg/dL (7-18); Bilirubin, Total 0.4 mg/dL (0.2-1.0); CO2 24.8 mmol/L (21.0-32.0); CREATININE 0.78 mg/dL (0.55-1.02); Calcium 7.8 mg/dL (8.5-10.1); Chloride 109 mmol/L (98-107); Glucose 94 mg/dL (70-100); Potassium 3.8 mmol/L (3.5-5.1); Sodium 142 mmol/L (136-145)
[2019-01-19 13:04] LABS: Folate 19.6 ng/mL (8.6-20.0)
[2019-01-19 13:17] LABS: Vitamin B12 744 pg/mL (193-986)
[2019-01-19 13:22] LABS: Bilirubin Negative (Negative); Blood Small (Negative); Clarity Clear (Clear); Glucose Negative (Negative); Ketones Negative (Negative); Leukocyte Esterase Negative (Negative); Nitrite Negative (Negative); Urobilinogen 0.2 EU/dL (Up TO 0.2)
[2019-01-19 13:36] LABS: Bacteria Few HPF (Negative); C & S Indicated? No; Casts Negative LPF (Negative); Crystals Negative HPF (Negative); Epithelial Cells Few HPF (Negative); Mucus Negative (Negative); Other Cells Negative (Negative); WBC 0-2 HPF (0-5)
[2019-01-19 14:35] LABS: Abs Immature Grans 0.02 k/cumm (0.0-0.09); Absolute Basophil Count 0.04 k/cumm (0.0-0.2); Absolute Eosinophil Count 0.44 k/cumm (0.0-0.7); Absolute Lymphocyte Count 1.89 k/cumm (1.2-3.4); Absolute Monocyte Count 0.63 k/cumm (0.11-0.7); Absolute Neutrophil Count 4.56 k/cumm (1.2-6.7); Basophils % 0.5; Eosinophils % 5.8; HCT 35.9 % (36.0-46.0); HGB 11.2 g/dL (12.0-15.5); Immature Grans % 0.3; Lymphocytes % 24.9; Mean Corp. HGB Concentration 31.2 g/dL (32.0-36.0); Mean Corpuscular Hemoglobin 25.7 pg (27.0-33.0); Mean Corpuscular Volume 82.3 fL (80-95); Mean Platelet Volume 11.3 fL (8.0-11.0); Monocytes % 8.3; Neutrophils % 60.2; Platelet Count 176 x1000/uL (130-400); RBC 4.36 m/cumm (4.00-5.20); RBC Distribution Width 21.1 % (11.7-14.6); White Blood Cell Count 7.58 k/cumm (4.4-10.8)
[2019-01-19 15:06] LABS: Iron 25 ug/dL (50-175); Total Iron Binding Capacity 341 ug/dL (250-450)
--- NOTE | 2019-01-19 16:02 | W.NEUROCONSU ---
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 Bass is a 43-year-old, right-handed woman who overdosed on heroin on 01/12/2019. Upon gaining consciousness, she noted new bilateral foot numbness and weakness which has persisted with only slight improvement. Her neurological exam was consistent with a severe peripheral neuropathy of the bilateral lower extremities. The most likely etiology is axonal injury associated with the heroin OD, however, her situation is somewhat unusual in that heroin-induced neuropathy most often, but not always, occurs with rhabdomyolysis which she did not appear to have. Guillan-Chow? also remains in the differential, but less likely given the acute onset and the association with heroin use. I will plan to perform nerve conduction studies tomorrow afternoon for both diagnosis and prognosis. In the meantime, I recommend high-dose IV steroids 1000 mg Solu-Medrol daily x5 days. Pending the nerve conduction studies, we can decide if the steroids need to be completed and/or if a lumbar puncture needs to be pursued. Continue close vital sign monitoring. Otherwise, she is having mild neuropathic pain in the feet bilaterally. Her pain seems well controlled at this time however, if it worsens, I would recommend increasing gabapentin to 1200 mg 3 times daily. DISCLAIMER: This note was created using [employer] voice recognition software. History of Present Illness Chief Complaint: bilateral foot drop Narrative: Handedness: right. HPI: Ms. Bass is a 43-year-old woman with a past medical history of depression, anxiety, ADHD, and polysubstance abuse (opioids, amphetamines, Wellbutrin). She unintentionally overdosed on heroin on 01/12/2019. She was found by her significant other but we do not know in what position he found her (he was in the room helping provide the history; he was also using heroin) or for how long she was unresponsive/down. Her significant other administered Narcan which she responded to and also responded to Narcan from EMS. She was brought to the [facility] emergency room and remained with a normal cognitive status. However, she noted new onset bilateral foot numbness, tingling, and weakness. She refused any testing in the emergency room and left for home. A CK was not performed. She denies any myalgias associated with this event. She has continued to have persistent numbness and tingling in her bilateral feet and lateral shins. Her feet are extremely hypersensitive to touch but she is not bothered by socks/sheets, etc. Her feet remain significantly weak but notes some weakness in her proximal legs as well, especially the knees. She is having difficulty walking and describes having to lift her legs up in the air to compensate for her dropfoot. In the last 24-48 hrs, she has had some improvement with ability to flex the toes in the right foot. She has been on gabapentin 800 mg 3 times daily for the last 1 year which she uses for mood. She is also on Topamax 25 mg twice daily which is supposed to help with cocaine cravings. She denies any preceding illnesses in the last several weeks. She has not had any recent vaccinations. Consults Requesting physician: Jadiel Shah Review of Systems Review of Systems All systems reviewed & are unremarkable except as noted in HPI and below PFSH Medical History (Updated 01/19/19 @ 16:34 by Nikki Gee MD) Amphetamine abuse, episodic (Acute 11/14/16) Anxiety Attention deficit hyperactivity disorder (ADHD), combined type (Acute 04/23/17) Depression Opiate dependence Polysubstance abuse (Acute) Smoker (Acute 09/16/13) Surgical History History of dilatation and curettage (Inactive) History of dilatation and curettage (Acute) Family History Father Alcohol abuse Mother No problems noted. 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 Has 3 kids in foster care. Visit Medication and Allergies Active Medications Generic Name Dose Route Start Last Admin Trade Name Freq PRN Reason Stop Dose Admin Gabapentin 800 mg 01/18/19 20:00 01/19/19 13:13 Neurontin PO 800 mg TID MARCIE Administration IV Miscellaneous Supplies 1 each 01/18/19 11:30 IV DIRECTED MARCIE IV Miscellaneous Supplies 1 each 01/18/19 17:15 IV DIRECTED MARCIE Methylprednisolone Sodium Succinate 1,000 mg 01/19/19 16:00 Solu-Medrol IVP 01/23/19 22:00 DAILY MARCIE Patient's Own 1 each 01/19/19 08:30 01/19/19 10:58 Medication ( PO Not Given Dexmethylphenidate QAM MARCIE Xr 35mg) Sodium Chloride 0 ml 01/18/19 11:30 01/19/19 11:49 Saline Flush 10 Ml Syringe IVP 40 ml PRN PRN Administration Sodium Chloride 0 ml 01/18/19 17:12 Saline Flush 10 Ml Syringe IVP PRN PRN Topiramate 25 mg 01/18/19 20:00 01/19/19 08:14 Topamax PO 25 mg BID MARCIE Administration Trazodone HCl 100 mg 01/18/19 22:00 01/18/19 21:16 Desyrel PO 100 mg HS MARCIE Administration Allergies diphenhydramine HCl [From Benadryl] Adverse Reaction (Verified 01/18/19 10:55) paradoxical stimulant Exam Narrative Exam Narrative: Physical Exam: Gen: Patient of apparent stated age, NAD Head and face: no facial or cranial abnormalities Neck: Supple, no meningismus, no occipital tenderness CV: + S1, S2, RRR, no murmur Resp: CTA B/L Abd: soft, nontender, nondistended Ext: Mild edema in bilateral hands and feet (chronic per patient). No cyanosis. No bony deformity. Neuro Exam: Language: fluency, naming, repetition, and comprehension intact; Mental Status: AAOx3, current events intact, fund of knowledge intact; Speech: no dysarthria Cranial nerves: Funduscopy: not performed CN II: visual mayfield intact CN III, IV, : extraocular movements intact, no nystagmus, pupils symmetric and reactive to light CN V: face sensation intact to LT and PP CN VII: no facial asymmetry noted CN VIII: hearing intact bilaterally CN IX, X: palate rises symmetrically CN XI: trapezius/SCM 5/5 bilaterally CN XII: protrudes tongue symmetrically Sensory: absent LT in bilateral feet and lateral calves; reduced PP on the dorsal surface of the right foot and bilateral lateral calves; absent PP on dorsum of left foot; PP intact on bottoms of the feet; absent vibration at the great toe bilaterally and reduced at the ankle; absent joint position in left great toe; Motor: bulk and tone intact. Fine motor movements intact bilaterally. No pronator drift. Strength 5/5 throughout the bilateral UE and LE except 4/5 left quad and hamstring; 0/5 bilateral ankle dorsiflexion and plantar flexion; 0/5 bilateral EHL; Can flex right toes; Reflexes: 2+ at the biceps, triceps, brachioradialis, and patella; absent at the achilles tendons bilaterally; toes neutral bilaterally; Coordination: FTN and HTS intact bilaterally Gait: deferred Results Last Vital Signs Temp 36.5 C 01/19/19 11:35 Pulse 69 01/19/19 11:35 Resp 22 01/19/19 11:35 BP 148/74 H 01/19/19 11:35 Pulse Ox 99 01/19/19 11:35 Labs : 01/19/19 14:00 01/19/19 11:50 Laboratory Results - last 24 hr 01/19/19 01/19/19 01/19/19 11:40 11:50 11:50 WBC RBC Hgb Hct MCV MCH MCHC RDW Plt Count MPV Immature Gran % Neutrophils % Lymphocytes % Monocytes % Eosinophils % Basophils % Absolute Neutrophils Absolute Lymphocytes Absolute Monocytes Absolute Eosinophils Absolute Basophils Sodium 142 Potassium 3.8 Chloride 109 H Carbon Dioxide 24.8 Anion Gap 8.2 BUN 14 Creatinine 0.78 Estimated GFR/1.73 m2 >= 60.00 Glucose 94 Calcium 7.8 L Iron TIBC Total Bilirubin 0.4 AST 226 H ALT 137 H Alkaline Phosphatase 94 Creatine Kinase 53 Total Protein 6.0 L Albumin 2.5 L Vitamin B12 744 Folate Urine Color Urine Clarity Urine pH Ur Specific [place] Urine Protein Urine Ketones Urine Blood Urine Nitrite Urine Bilirubin Urine Urobilinogen Ur Leukocyte Esterase Urine RBC Urine WBC Ur Epithelial Cells Urine Crystals Urine Bacteria Urine Casts Urine Mucus Urine Other Ur Culture Indicated? Urine Glucose HIV-1 RNA Qnt (RT-PCR) HIV 1&2 Antibody Rapid 01/19/19 01/19/19 01/19/19 11:50 11:58 12:50 WBC RBC Hgb Hct MCV MCH MCHC RDW Plt Count MPV Immature Gran % Neutrophils % Lymphocytes % Monocytes % Eosinophils % Basophils % Absolute Neutrophils Absolute Lymphocytes Absolute Monocytes Absolute Eosinophils Absolute Basophils Sodium Potassium Chloride Carbon Dioxide Anion Gap BUN Creatinine Estimated GFR/1.73 m2 Glucose Calcium Iron TIBC Total Bilirubin AST ALT Alkaline Phosphatase Creatine Kinase Total Protein Albumin Vitamin B12 Folate 19.6 Urine Color Yellow Urine Clarity Clear Urine pH 7.0 Ur Specific [place] 1.010 Urine Protein Negative Urine Ketones Negative Urine Blood Small H Urine Nitrite Negative Urine Bilirubin Negative Urine Urobilinogen 0.2 Ur Leukocyte Esterase Negative Urine RBC 3-5 H Urine WBC 0-2 Ur Epithelial Cells Few Urine Crystals Negative Urine Bacteria Few Urine Casts Negative Urine Mucus Negative Urine Other Negative Ur Culture Indicated? No Urine Glucose Negative HIV-1 RNA Qnt (RT-PCR) HIV 1&2 Antibody Rapid Cancelled 01/19/19 01/19/19 01/19/19 12:57 14:00 14:00 WBC 7.58 RBC 4.36 Hgb 11.2 L Hct 35.9 L MCV 82.3 MCH 25.7 L MCHC 31.2 L RDW 21.1 H Plt Count 176 D MPV 11.3 H Immature Gran % 0.3 Neutrophils % 60.2 Lymphocytes % 24.9 Monocytes % 8.3 Eosinophils % 5.8 Basophils % 0.5 Absolute Neutrophils 4.56 Absolute Lymphocytes 1.89 Absolute Monocytes 0.63 Absolute Eosinophils 0.44 Absolute Basophils 0.04 Sodium Potassium Chloride Carbon Dioxide Anion Gap BUN Creatinine Estimated GFR/1.73 m2 Glucose Calcium Iron 25 L TIBC 341 Total Bilirubin AST ALT Alkaline Phosphatase Creatine Kinase Total Protein Albumin Vitamin B12 Folate Urine Color Urine Clarity Urine pH Ur Specific [place] Urine Protein Urine Ketones Urine Blood Urine Nitrite Urine Bilirubin Urine Urobilinogen Ur Leukocyte Esterase Urine RBC Urine WBC Ur Epithelial Cells Urine Crystals Urine Bacteria Urine Casts Urine Mucus Urine Other Ur Culture Indicated? Urine Glucose HIV-1 RNA Qnt (RT-PCR) Cancelled HIV 1&2 Antibody Rapid
[2019-01-19 16:10] VITALS: BP 146/70; PULSE 71; RESP 20; TEMP 37; O2SAT 99
--- NOTE | 2019-01-19 16:24 | PDOC.CMIN ---
- If Service Date Differs Date of service: 01/19/19 Time of Service: 16:24 Care Management Initial Assess REASON FOR HOSPITALIZATION:: Neuropathy PAST MEDICAL HISTORY/PAST SURGICAL HISTORY:: Medical History: Anxiety. Depression. Opiate dependence. Surgical History: History of dilatation and curettage (Inactive). 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 Luis A shared that he is being evicted from there in early February.Chloé and Luis A have 2 children that are currently in DCF custody.chloé has been independent with all care and activities until her recent illness which has impaired her ability to walk. She plans to file for disability. CURRENT FUNCTIONAL STATUS:: Chloé was sitting up in a wheelchair when CM came to see her. She stated she still has numbness and weakness in her feet and ankles. She informed CM that the neurologist gave her some very bad news but that she can't remember all of the details. She and Luis A asked if they could go outside for a breath of fresh air. They were informed that [facility] policy does not allow for this except in unusual situations and when accompanied by a nurse. Has patient been provided with information about the portal?: No Did the patient sign up for the portal?: No CODE STATUS:: Full Code INSURANCE COVERAGE / FINANCIAL ISSUES:: Medicaid CURRENT HOME/COMMUNITY SERVICES/EQUIPMENT:: Chloé is connected with [employer] and works with Lucero Uribe. She receives [facility] [place] and was recently discharged from [facility]. PRIMARY CARE PHYSICIAN:: Job Mars POTENTIAL DISCHARGE NEEDS:: Financial support, housing, substance abuse trewatment and follow up with PCP. PATIENT/FAMILY EDUCATION NEEDS:: Discharge plan, limitations, follow up plan, Ask Me Three. ANTICIPATED BARRIERS TO DISCHARGE:: inability to safely ambulate and homelessness. TRANSPORTATION:: via private vehicle with Luis A PLAN:: Chloé is undergoing testing to determine the cause of her neuropathy. Her discharge plan will be determined by the findings from those tests. CM will continue to support patient, family and discharge planning process.
--- NOTE | 2019-01-19 16:59 | PHARADMIT ---
Addendum entered by Aurora Bynum 01/21/19 16:34: Pharmacy Note Subjective improving but still has significant deficits per progress note Objective BP-157/95 other VS okay Cl-111 Assessment ascorbic acid, ferrous sulfate, docusate, and mylanta ordered pantoprazole changed from IV to PO methylprednisolone continues- day 3/5 Plan finish 5 days of IV then acute rehab for PT? Original Note: Admission Pharmacy Clinical Review Code Status Full Code Current Weight 56.699 kg Renally Cleared and Narrow Therapeutic Index Meds CrCl ~82 QTc Value / Action Taken QTc 418 BP Control, Fever BP 148/74, afebrile Electrolytes reviewed Na 142, K 3.8, Mg 1.9() DVT Prophylaxis None Opiate Usage / Scheduled Bowel Regimen Ordered None Plt/SCr for Heparin / Enoxaparin Plt 176 INR for Warfarin H/H stable, WBC/Bands H/H 35.9/11.2, WBC 7.58 Antibiotic appropriateness None Cultures and Sensitivities Surgical ABX d/c within 24 hr DM control / Insulin Dosing Heart Failure (Check EF%) (ELOY's, B-Block, Diuretics) IV to PO Switch Home Meds Reviewed meds ok Home Meds Not Ordered All ordered - does have hx of suboxone 8mg film from 2018 which is not ordered POM-Focalin XR 35mg Comments Lower extremity numbness and weakness/motor and sensory neuropathy - etiology unclear (possibly Guillaine [place] or tickborne)
--- NOTE | 2019-01-19 17:59 | RESPIRATORY ---
01/19/2019-Nif was 120. Pt has great effort.
[2019-01-19] MEDS: Ibuprofen 600 MG TAB PO (20:36)
[2019-01-19 21:29] VITALS: BP 135/80; PULSE 68; RESP 18; TEMP 36.5; O2SAT 100
[2019-01-19] MEDS: traZODone 100 MG TAB PO (21:42)
[2019-01-20] VITALS (8 sets, daily range): BP systolic 122–142; BP diastolic 68–85; PULSE 60–82; RESP 16–20; TEMP 36.2–37.3; O2SAT 98–100
[2019-01-20] MEDS: Gabapentin 400 MG CAP 800 MG PO ×3 (08:43→19:23)
[2019-01-20] MEDS: Topiramate 50 MG TAB 25 MG PO ×2 (08:43→19:22)
[2019-01-20 09:53] LABS: Hepatitis C Ab w Rflx HCV PCR Reactive (NEGAT)
[2019-01-20] MEDS: Ibuprofen 600 MG TAB PO (09:56)
[2019-01-20 10:39] LABS: Hepatitis B Surface Ag Negative (NEGAT)
[2019-01-20 10:46] LABS: Lyme Ab w Rflx to Lyme Confirm Negative
[2019-01-20 10:56] LABS: HIV-1/2 Ag & Ab Screen Negative (NEGAT); Hep B Core Antibody Negative (NEGAT)
[2019-01-20] MEDS: Normal Saline Flush 10 ML SYR IVP (12:01)
[2019-01-20] MEDS: Pantoprazole 40 MG VIAL IVP (12:22)
--- NOTE | 2019-01-20 15:24 | W.PM.PROGNOT ---
Date of Service Date of service: 01/20/19 Time of Service: 15:24 Assessment and Plan (1) Neuropathy: Current visit: Yes Status: Acute Suspected heroin-induced peripheral neuropathy, but GBS cannot be definitively ruled out at this time. Dr Gee feels the patient should still complete a 5 day burst of high dose steroids. Needs aggressive PT. May require SNF placement. (2) Transaminitis: Current visit: No Status: Acute Hep C antibody is positive. Viral load pending. Obtain US RUQ. Trend LFTs (3) Anemia: Current visit: No Status: Chronic Borderline microcytic. B12 wnl. Checking iron studies. (4) Attention deficit hyperactivity disorder (ADHD), combined type: Current visit: No Status: Acute Family cannot locate outpatient dexmethylphenidate. Will cover with methylphenidate while inpatient - but we do not plan on prescribing this on discharge. (5) DVT prophylaxis: Current visit: Yes Status: Acute Start lovenox, TEDs, SCD's (6) Discharge planning issues: Current visit: Yes Status: Acute Full code May require SNF placement Subjective Interval history since last seen: S/p EMG today - while the results are inconclusive because the study is being done early in the disease process, patient's symptoms are thought to be due to a peripheral neuropathy, likely toxin induced. The patient reports leg pain post study and feels short of breath - this started during the study, ?associated with the pain. Denies dizziness, chest pain, nausea. Patient is interested in hepatitis C testing. Exam Narrative Exam Narrative: General: anxious Middle-aged female, does not always answer the question I am asking her - asnwers her own question HEENT: EOMI, MMM Heart: RRR, tachycardic Lungs: CTAB GI: abdomen is soft, nontender, nondistended Extremities: no e/c/c BLE's, difficult to assess strength Objective Objective Clinical Data: Abnormal lab results 01/19/19 Range/Units 14:20 Hepatitis C Antibody Reactive A (NEGAT) Vital Signs Temperature 37 C 01/20/19 11:39 Temperature Source Tympanic 01/20/19 11:39 Pulse 65 01/20/19 11:39 Pulse Rhythm Regular 01/20/19 08:47 Respiratory Rate 20 01/20/19 11:39 Respiratory Effort Non-Labored 01/20/19 08:47 Respiratory Depth Normal 01/20/19 08:47 Respiratory Pattern Normal 01/20/19 08:47 Blood Pressure 126/78 01/20/19 11:39 Blood Pressure Position Sitting 01/18/19 10:49 Pulse Oximetry 99 01/20/19 11:39 Oxygen Delivery Method Room Air 01/20/19 11:39 Oxygen Flow Rate 0 01/20/19 11:39 Pain Level 4 01/20/19 11:39 Intake & Output 01/19/19 01/20/19 01/20/19 23:59 11:59 23:59 Intake Total 1580 / 2230 1400 / 2990 1590 / 2990 Output Total 700 / 700 Balance 880 / 1530 1400 / 2990 1590 / 2990 Intake: IV 100 / 150 100 / 100 Oral 1480 / 2080 1400 / 2890 1490 / 2890 Output: Urine 700 / 700 Other: Urine Color Yellow Pale Yellow Urine Appearance Clear Clear Urine Odor Normal Normal Comment pt voided in commode could not measure Voiding Methods Bedside Commode Bedside Commode Laboratory Results WBC 7.58 k/cumm (4.4-10.8) 01/19/19 14:00 RBC 4.36 m/cumm (4.00-5.20) 01/19/19 14:00 Hgb 11.2 g/dL (12.0-15.5) L 01/19/19 14:00 Hct 35.9 % (36.0-46.0) L 01/19/19 14:00 MCV 82.3 fL (80-95) 01/19/19 14:00 MCH 25.7 pg (27.0-33.0) L 01/19/19 14:00 MCHC 31.2 g/dL (32.0-36.0) L 01/19/19 14:00 RDW 21.1 % (11.7-14.6) H 01/19/19 14:00 Plt Count 176 x1000/uL (130-400) D 01/19/19 14:00 MPV 11.3 fL (8.0-11.0) H 01/19/19 14:00 Immature Gran % 0.3 01/19/19 14:00 60.2 01/19/19 14:00 24.9 01/19/19 14:00 8.3 01/19/19 14:00 5.8 01/19/19 14:00 0.5 01/19/19 14:00 Absolute Neutrophils 4.56 k/cumm (1.2-6.7) 01/19/19 14:00 Absolute Lymphocytes 1.89 k/cumm (1.2-3.4) 01/19/19 14:00 Absolute Monocytes 0.63 k/cumm (0.11-0.7) 01/19/19 14:00 Absolute Eosinophils 0.44 k/cumm (0.0-0.7) 01/19/19 14:00 Absolute Basophils 0.04 k/cumm (0.0-0.2) 01/19/19 14:00 Rbc morph reviewed 01/18/19 12:30 RBC Morphology See below 01/18/19 12:30 Present 01/18/19 12:30 2+ 01/18/19 12:30 2+ 01/18/19 12:30 2+ 01/18/19 12:30 2+ 01/18/19 12:30 2+ 01/18/19 12:30 ESR 21 mm/hr (0-20) H 01/18/19 12:30 Sodium Cancelled 01/20/19 14:35 Potassium Cancelled 01/20/19 14:35 Chloride Cancelled 01/20/19 14:35 Carbon Dioxide Cancelled 01/20/19 14:35 Cancelled 01/20/19 14:35 BUN Cancelled 01/20/19 14:35 Cancelled 01/20/19 14:35 Cancelled 01/20/19 14:35 Glucose Cancelled 01/20/19 14:35 Calcium Cancelled 01/20/19 14:35 Magnesium 1.9 mg/dL (1.8-2.4) 01/18/19 12:30 Iron 25 ug/dL (50-175) L 01/19/19 14:00 TIBC 341 ug/dL (250-450) 01/19/19 14:00 Cancelled 01/20/19 14:35 Cancelled 01/20/19 14:35 AST Cancelled 01/20/19 14:35 ALT Cancelled 01/20/19 14:35 Cancelled 01/20/19 14:35 53 U/L (26-192) 01/19/19 11:40 < 0.05 ng/mL (0.00-0.06) 01/18/19 12:30 NT-Pro-B Natriuret Pep 251 pg/mL (-299) 01/18/19 12:30 Cancelled 01/20/19 14:35 Cancelled 01/20/19 14:35 Vitamin B12 744 pg/mL (193-986) 01/19/19 11:50 19.6 ng/mL (8.6-20.0) 01/19/19 11:50 Yellow (Yellow) 01/19/19 12:50 Clear (Clear) 01/19/19 12:50 7.0 (5-8) 01/19/19 12:50 Ur Specific [place] 1.010 (1.005-1.025) 01/19/19 12:50 Negative mg/dL (Negative) 01/19/19 12:50 Negative mg/dL (Negative) 01/19/19 12:50 Small (Negative) H 01/19/19 12:50 Negative (Negative) 01/19/19 12:50 Negative (Negative) 01/19/19 12:50 0.2 EU/dL (Up TO 0.2) 01/19/19 12:50 Ur Leukocyte Esterase Negative (Negative) 01/19/19 12:50 3-5 (0-2) H 01/19/19 12:50 0-2 HPF (0-5) 01/19/19 12:50 Ur Epithelial Cells Few HPF (Negative) 01/19/19 12:50 Negative HPF (Negative) 01/19/19 12:50 Few HPF (Negative) 01/19/19 12:50 Negative LPF (Negative) 01/19/19 12:50 Negative (Negative) 01/19/19 12:50 Negative (Negative) 01/19/19 12:50 Ur Culture Indicated? No 01/19/19 12:50 Negative mg/dL (Negative) 01/19/19 12:50 Lyme Disease Antibody Negative 01/19/19 14:20 Hep Bs Antigen Negative (NEGAT) 01/19/19 12:30 Hep B Core Total Ab Negative (NEGAT) 01/19/19 12:30 Reactive (NEGAT) A 01/19/19 14:20 HIV-1 RNA Qnt (RT-PCR) Cancelled 01/19/19 12:57 HIV 1&2 Ag/Ab, 4th Gen Negative (NEGAT) 01/19/19 12:30 HIV 1&2 Antibody Rapid Cancelled 01/19/19 11:58
--- NOTE | 2019-01-20 16:07 | W.PM.PROGNOT ---
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 Bass is a 43-year-old, right-handed woman who overdosed on heroin on 01/12/2019. Upon gaining consciousness, she noted new bilateral foot numbness and weakness which has persisted with only slight improvement since. Her neurological exam was consistent with a severe peripheral neuropathy of the bilateral lower extremities with bilateral foot drop. She has made slight improvement in the last 48 hours. Nerve conduction studies were performed today and showed prolonged/absent F waves in the lower extremities only. This would be consistent with an early proximal demyelination such as in a polyradiculopathy or polyneuropathy and consistent with her clinical history. The differential diagnosis includes a heroin induced toxic neuropathy versus an autoimmune demyelinating Guillain-Chow? syndrome. Clinically, her history supports a toxic neuropathy given its acute onset and association with heroin OD. I am not sure that an LP would help differentiate the conditions as both conditions are associated with an elevated CSF protein. Thus, I think it would be prudent to continue IV Solu-Medrol 1000 mg daily for a full 5-day course along with aggressive physical therapy. Overall, prognosis is good if she can rehabilitate and abstain from further recreational drugs. I discussed this with her. Her pain is well controlled on her baseline gabapentin which can be increased to 1200 mg 3 times daily if her pain increases. She should follow-up in the neurology clinic in 8 to 12 weeks at which time we can consider repeat nerve conduction studies if she is not making good recovery. DISCLAIMER: This note was created using [employer] voice recognition software. Subjective Interval history since last seen: Ms. Bass has had no issues overnight. She has not been seen by physical therapy. She has had her first 2 doses of IV Solu-Medrol without any side effects. She has had some new movement with left toe flexion. No change in her sensory symptoms. She is not having any significant neuropathic pain. Exam Narrative Exam Narrative: Physical Exam: Constitutional: Patient of apparent stated age, well nourished, well developed, no acute distress Extrem: bilateral hand and foot edema - no change in my opinion but she thinks improved Neuro: MS/Language/Speech: Alert, oriented, clear language (fluency and comprehension), no dysarthria Motor: Normal bulk. Bilateral drop foot. Proximal LE bilateral 5/5. Distally 0/5 bilateral ankle dorsiflexion with 3+/5 right ankle plantar flexion and in left toe flexion. Coordination: no ataxia Gait: deferred ELECTRODIAGNOSTIC STUDIES: The right ulnar, bilateral peroneal, and bilateral tibial motor responses were normal. The F wave responses were absent or prolonged in the bilateral lower extremities with a normal response in the right ulnar motor nerve. Sural sensory responses were intact bilaterally. Objective Objective Clinical Data: Abnormal lab results 01/19/19 Range/Units 14:20 Hepatitis C Antibody Reactive A (NEGAT) Vital Signs Temperature 37.3 C 01/20/19 15:45 Temperature Source Temporal Artery Scan 01/20/19 15:45 Pulse 81 01/20/19 15:45 Pulse Rhythm Regular 01/20/19 08:47 Respiratory Rate 18 01/20/19 15:45 Respiratory Effort Non-Labored 01/20/19 08:47 Respiratory Depth Normal 01/20/19 08:47 Respiratory Pattern Normal 01/20/19 08:47 Blood Pressure 136/85 01/20/19 15:45 Blood Pressure Position Sitting 01/18/19 10:49 Pulse Oximetry 99 01/20/19 15:45 Oxygen Delivery Method Room Air 01/20/19 15:45 Oxygen Flow Rate 0 01/20/19 15:45 Pain Level 8 01/20/19 15:45 Intake & Output 01/19/19 01/20/19 01/20/19 23:59 11:59 23:59 Intake Total 1580 / 2230 1400 / 2990 1590 / 2990 Output Total 700 / 700 Balance 880 / 1530 1400 / 2990 1590 / 2990 Intake: IV 100 / 150 100 / 100 Oral 1480 / 2080 1400 / 2890 1490 / 2890 Output: Urine 700 / 700 Other: Urine Color Yellow Pale Yellow Urine Appearance Clear Clear Urine Odor Normal Normal Comment pt voided in commode could not measure Voiding Methods Bedside Commode Bedside Commode Laboratory Results WBC 7.58 k/cumm (4.4-10.8) 01/19/19 14:00 RBC 4.36 m/cumm (4.00-5.20) 01/19/19 14:00 Hgb 11.2 g/dL (12.0-15.5) L 01/19/19 14:00 Hct 35.9 % (36.0-46.0) L 01/19/19 14:00 MCV 82.3 fL (80-95) 01/19/19 14:00 MCH 25.7 pg (27.0-33.0) L 01/19/19 14:00 MCHC 31.2 g/dL (32.0-36.0) L 01/19/19 14:00 RDW 21.1 % (11.7-14.6) H 01/19/19 14:00 Plt Count 176 x1000/uL (130-400) D 01/19/19 14:00 MPV 11.3 fL (8.0-11.0) H 01/19/19 14:00 Immature Gran % 0.3 01/19/19 14:00 60.2 01/19/19 14:00 24.9 01/19/19 14:00 8.3 01/19/19 14:00 5.8 01/19/19 14:00 0.5 01/19/19 14:00 Absolute Neutrophils 4.56 k/cumm (1.2-6.7) 01/19/19 14:00 Absolute Lymphocytes 1.89 k/cumm (1.2-3.4) 01/19/19 14:00 Absolute Monocytes 0.63 k/cumm (0.11-0.7) 01/19/19 14:00 Absolute Eosinophils 0.44 k/cumm (0.0-0.7) 01/19/19 14:00 Absolute Basophils 0.04 k/cumm (0.0-0.2) 01/19/19 14:00 Rbc morph reviewed 01/18/19 12:30 RBC Morphology See below 01/18/19 12:30 Present 01/18/19 12:30 2+ 01/18/19 12:30 2+ 01/18/19 12:30 2+ 01/18/19 12:30 2+ 01/18/19 12:30 2+ 01/18/19 12:30 ESR 21 mm/hr (0-20) H 01/18/19 12:30 Sodium Cancelled 01/20/19 14:35 Potassium Cancelled 01/20/19 14:35 Chloride Cancelled 01/20/19 14:35 Carbon Dioxide Cancelled 01/20/19 14:35 Cancelled 01/20/19 14:35 BUN Cancelled 01/20/19 14:35 Cancelled 01/20/19 14:35 Cancelled 01/20/19 14:35 Glucose Cancelled 01/20/19 14:35 Calcium Cancelled 01/20/19 14:35 Magnesium 1.9 mg/dL (1.8-2.4) 01/18/19 12:30 Iron 25 ug/dL (50-175) L 01/19/19 14:00 TIBC 341 ug/dL (250-450) 01/19/19 14:00 Cancelled 01/20/19 14:35 Cancelled 01/20/19 14:35 AST Cancelled 01/20/19 14:35 ALT Cancelled 01/20/19 14:35 Cancelled 01/20/19 14:35 53 U/L (26-192) 01/19/19 11:40 < 0.05 ng/mL (0.00-0.06) 01/18/19 12:30 NT-Pro-B Natriuret Pep 251 pg/mL (-299) 01/18/19 12:30 Cancelled 01/20/19 14:35 Cancelled 01/20/19 14:35 Vitamin B12 744 pg/mL (193-986) 01/19/19 11:50 19.6 ng/mL (8.6-20.0) 01/19/19 11:50 Yellow (Yellow) 01/19/19 12:50 Clear (Clear) 01/19/19 12:50 7.0 (5-8) 01/19/19 12:50 Ur Specific Gray 1.010 (1.005-1.025) 01/19/19 12:50 Negative mg/dL (Negative) 01/19/19 12:50 Negative mg/dL (Negative) 01/19/19 12:50 Small (Negative) H 01/19/19 12:50 Negative (Negative) 01/19/19 12:50 Negative (Negative) 01/19/19 12:50 0.2 EU/dL (Up TO 0.2) 01/19/19 12:50 Ur Leukocyte Esterase Negative (Negative) 01/19/19 12:50 3-5 (0-2) H 01/19/19 12:50 0-2 HPF (0-5) 01/19/19 12:50 Ur Epithelial Cells Few HPF (Negative) 01/19/19 12:50 Negative HPF (Negative) 01/19/19 12:50 Few HPF (Negative) 01/19/19 12:50 Negative LPF (Negative) 01/19/19 12:50 Negative (Negative) 01/19/19 12:50 Negative (Negative) 01/19/19 12:50 Ur Culture Indicated? No 01/19/19 12:50 Negative mg/dL (Negative) 01/19/19 12:50 Lyme Disease Antibody Negative 01/19/19 14:20 Hep Bs Antigen Negative (NEGAT) 01/19/19 12:30 Hep B Core Total Ab Negative (NEGAT) 01/19/19 12:30 Reactive (NEGAT) A 01/19/19 14:20 HIV-1 RNA Qnt (RT-PCR) Cancelled 01/19/19 12:57 HIV 1&2 Ag/Ab, 4th Gen Negative (NEGAT) 01/19/19 12:30 HIV 1&2 Antibody Rapid Cancelled 01/19/19 11:58
[2019-01-20] MEDS: Enoxaparin 40 MG/0.4 ML SYR SC (16:18)
[2019-01-20 16:35] LABS: Acetaminophen < 2 ug/mL (10-30)
--- NOTE | 2019-01-20 17:14 | RESPIRATORY ---
NIF/MIF 85/195
--- NOTE | 2019-01-20 17:19 | PDOC.CMPRO ---
Care Management Progress Note s/o: Alannah was lying in bed. Stated she was in pain and also needed her medication for ADHD. Provider was aware of this. Seemed to be discouraged by her current physical condition. A: 43 y.o. female admitted for ambulatory dysfunction and neuropathy following a recent heroin overdose. P: Discharge disposition and home care service needs will be determined based on the findings/recommendations of the tests performed.
[2019-01-20] MEDS: traZODone 100 MG TAB PO (21:57)
[2019-01-21 07:45] VITALS: BP 117/68; PULSE 58; RESP 18; TEMP 36; O2SAT 99
[2019-01-21 07:56] LABS: ALT 133 U/L (12-78); AST 97 U/L (15-37); Alkaline Phosphatase 116 U/L (46-116); BUN 22 mg/dL (7-18); Bilirubin, Total 0.3 mg/dL (0.2-1.0); CREATININE 0.91 mg/dL (0.55-1.02); Calcium 8.5 mg/dL (8.5-10.1); Chloride 111 mmol/L (98-107); Ferritin 51 ng/mL (8-388); Glucose 128 mg/dL (70-100); Sodium 145 mmol/L (136-145)
[2019-01-21] MEDS: Gabapentin 400 MG CAP 800 MG PO ×3 (08:00→19:52)
[2019-01-21] MEDS: Normal Saline Flush 10 ML SYR IVP (08:09)
[2019-01-21] MEDS: Ibuprofen 600 MG TAB PO ×2 (08:09→16:37)
[2019-01-21 08:50] LABS: Iron 24 ug/dL (50-175); Total Iron Binding Capacity 373 ug/dL (250-450); Transferrin Sat 6 % (15-50)
[2019-01-21 09:09] VITALS: RESP 16
[2019-01-21] MEDS: Pantoprazole 40 MG VIAL IVP (09:59)
[2019-01-21] MEDS: Topiramate 50 MG TAB 25 MG PO ×2 (09:59→19:52)
--- NOTE | 2019-01-21 10:01 | DI.US_ITS ---
SYMPTOM/DIAGNOSIS: TRANSAMINITIS ABDOMINAL ULTRASOUND: 01/21 The visualized liver parenchyma is normal in appearance. There is no evidence of cholelithiasis. The common bile duct is of normal diameter. The pancreas and spleen appear intact. No renal abnormality is seen. The abdominal aorta is of normal diameter. Normal appearance of IVC. CONCLUSION: Normal abdominal ultrasound.
--- NOTE | 2019-01-21 11:11 | W.PM.PROGNOT ---
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 Improving, but still has significant deficits. Continues to require aggressive PT, would benefit from ankle foot orthoses, will need acute rehab. (2) Transaminitis: Current visit: No Status: Acute Improved. Hep C Ab (+)adithya, but viral load is still pending. states he has a history of treated hepatitis B. US RUQ neg. Follow up hepatitis C viral load once results are back. (3) Anemia: Current visit: No Status: Chronic Borderline microcytic. Does have evidence of iron deficiency. Start PO iron, colace, Vit C. (4) Attention deficit hyperactivity disorder (ADHD), combined type: Current visit: No Status: Acute Continue methylphenidate - patient is on dexmethylphenydate as outpatient. The patient should receive refills from her outpatient prescriber. (5) DVT prophylaxis: Current visit: No Status: Acute Continue SC lovenox, TEDs, SCD's (6) Discharge planning issues: Current visit: No Status: Acute Full code Could benefit from acute rehab placement on discharge. Subjective Interval history since last seen: Ms Bass states she is feeling better. She thinks her R leg is coming back faster than her left leg. She states she is tired of not being able to flex her legs, but is starting to get more movement in her toes. She is noticing improvement with IV steroids. She is considering acute rehab, which has been recommended by PT. Denies dizziness, chest pain, shortness of breath, nausea, vomiting. Exam Narrative Exam Narrative: General: anxious Middle-aged female, A&Ox3, sitting in a wheel chair HEENT: EOMI, MMM Heart: RRR, tachycardic, no m/r/g Lungs: CTAB GI: abdomen is soft, nontender, nondistended Extremities: no e/c/c BLE's, difficult to assess strength, B foot drop, able to move toes LLE Objective Objective Clinical Data: Abnormal lab results 01/19/19 01/20/19 01/21/19 Range/Units 14:20 14:35 07:07 Chloride 111 H (98-107) mmol/L BUN 22 H D (7-18) mg/dL Glucose 128 H (70-100) mg/dL Iron (50-175) ug/dL Transferrin % Sat (15-50) % AST 97 H (15-37) U/L ALT 133 H (12-78) U/L Albumin 3.0 L (3.4-5.0) g/dL Acetaminophen < 2 L (10-30) ug/mL Hepatitis C Antibody Reactive A (NEGAT) 01/21/19 Range/Units 07:07 Chloride (98-107) mmol/L BUN (7-18) mg/dL Glucose (70-100) mg/dL Iron 24 L (50-175) ug/dL Transferrin % Sat 6 L (15-50) % AST (15-37) U/L ALT (12-78) U/L Albumin (3.4-5.0) g/dL Acetaminophen (10-30) ug/mL Hepatitis C Antibody (NEGAT) Vital Signs Temperature 36 C L 01/21/19 07:45 Temperature Source Tympanic 01/21/19 07:45 Pulse 58 L 01/21/19 07:45 Pulse Rhythm Regular 01/21/19 10:04 Respiratory Rate 16 01/21/19 09:09 Respiratory Effort Non-Labored 01/21/19 10:04 Respiratory Depth Normal 01/21/19 10:04 Respiratory Pattern Normal 01/21/19 10:04 Blood Pressure 117/68 01/21/19 07:45 Blood Pressure Position Sitting 01/18/19 10:49 Pulse Oximetry 99 01/21/19 07:45 Oxygen Delivery Method Room Air 01/21/19 07:45 Oxygen Flow Rate 0 01/21/19 07:45 Pain Level 3 01/21/19 09:09 Intake & Output 01/20/19 01/20/19 01/21/19 11:59 23:59 11:59 Intake Total 1399 100 / 100 Balance 1399 100 / 100 Intake: IV 100 / 100 100 / 100 Oral 1399 Other: Urine Color Pale Yellow Pale Yellow Yellow Straw Urine Appearance Clear Clear Clear Urine Odor Normal Normal Comment pt voided in commode could not measure Voiding Methods Bedside Commode Bedside Commode Bedside Commode Laboratory Results WBC 7.58 k/cumm (4.4-10.8) 01/19/19 14:00 RBC 4.36 m/cumm (4.00-5.20) 01/19/19 14:00 Hgb 11.2 g/dL (12.0-15.5) L 01/19/19 14:00 Hct 35.9 % (36.0-46.0) L 01/19/19 14:00 MCV 82.3 fL (80-95) 01/19/19 14:00 MCH 25.7 pg (27.0-33.0) L 01/19/19 14:00 MCHC 31.2 g/dL (32.0-36.0) L 01/19/19 14:00 RDW 21.1 % (11.7-14.6) H 01/19/19 14:00 Plt Count 176 x1000/uL (130-400) D 01/19/19 14:00 MPV 11.3 fL (8.0-11.0) H 01/19/19 14:00 Immature Gran % 0.3 01/19/19 14:00 60.2 01/19/19 14:00 24.9 01/19/19 14:00 8.3 01/19/19 14:00 5.8 01/19/19 14:00 0.5 01/19/19 14:00 Absolute Neutrophils 4.56 k/cumm (1.2-6.7) 01/19/19 14:00 Absolute Lymphocytes 1.89 k/cumm (1.2-3.4) 01/19/19 14:00 Absolute Monocytes 0.63 k/cumm (0.11-0.7) 01/19/19 14:00 Absolute Eosinophils 0.44 k/cumm (0.0-0.7) 01/19/19 14:00 Absolute Basophils 0.04 k/cumm (0.0-0.2) 01/19/19 14:00 Rbc morph reviewed 01/18/19 12:30 RBC Morphology See below 01/18/19 12:30 Present 01/18/19 12:30 2+ 01/18/19 12:30 2+ 01/18/19 12:30 2+ 01/18/19 12:30 2+ 01/18/19 12:30 2+ 01/18/19 12:30 ESR 21 mm/hr (0-20) H 01/18/19 12:30 Sodium 145 mmol/L (136-145) 01/21/19 07:07 Potassium 4.0 mmol/L (3.5-5.1) 01/21/19 07:07 Chloride 111 mmol/L (98-107) H 01/21/19 07:07 Carbon Dioxide 24.0 mmol/L (21.0-32.0) 01/21/19 07:07 10.0 mmol/L (3-11) 01/21/19 07:07 BUN 22 mg/dL (7-18) H D 01/21/19 07:07 0.91 mg/dL (0.55-1.02) 01/21/19 07:07 >= 60.00 (mL/min/1.73m2) 01/21/19 07:07 Glucose 128 mg/dL (70-100) H 01/21/19 07:07 Calcium 8.5 mg/dL (8.5-10.1) 01/21/19 07:07 Magnesium 1.9 mg/dL (1.8-2.4) 01/18/19 12:30 Iron 24 ug/dL (50-175) L 01/21/19 07:07 TIBC 373 ug/dL (250-450) 01/21/19 07:07 Transferrin % Sat 6 % (15-50) L 01/21/19 07:07 51 ng/mL (8-388) 01/21/19 07:07 0.3 mg/dL (0.2-1.0) 01/21/19 07:07 0.10 mg/dL (0.00-0.20) 01/21/19 07:07 AST 97 U/L (15-37) H 01/21/19 07:07 ALT 133 U/L (12-78) H 01/21/19 07:07 116 U/L (46-116) 01/21/19 07:07 53 U/L (26-192) 01/19/19 11:40 < 0.05 ng/mL (0.00-0.06) 01/18/19 12:30 NT-Pro-B Natriuret Pep 251 pg/mL (-299) 01/18/19 12:30 7.0 g/dL (6.4-8.2) 01/21/19 07:07 3.0 g/dL (3.4-5.0) L 01/21/19 07:07 Vitamin B12 744 pg/mL (193-986) 01/19/19 11:50 19.6 ng/mL (8.6-20.0) 01/19/19 11:50 Yellow (Yellow) 01/19/19 12:50 Clear (Clear) 01/19/19 12:50 7.0 (5-8) 01/19/19 12:50 Ur Specific [place] 1.010 (1.005-1.025) 01/19/19 12:50 Negative mg/dL (Negative) 01/19/19 12:50 Negative mg/dL (Negative) 01/19/19 12:50 Small (Negative) H 01/19/19 12:50 Negative (Negative) 01/19/19 12:50 Negative (Negative) 01/19/19 12:50 0.2 EU/dL (Up TO 0.2) 01/19/19 12:50 Ur Leukocyte Esterase Negative (Negative) 01/19/19 12:50 3-5 (0-2) H 01/19/19 12:50 0-2 HPF (0-5) 01/19/19 12:50 Ur Epithelial Cells Few HPF (Negative) 01/19/19 12:50 Negative HPF (Negative) 01/19/19 12:50 Few HPF (Negative) 01/19/19 12:50 Negative LPF (Negative) 01/19/19 12:50 Negative (Negative) 01/19/19 12:50 Negative (Negative) 01/19/19 12:50 Ur Culture Indicated? No 01/19/19 12:50 Negative mg/dL (Negative) 01/19/19 12:50 Acetaminophen < 2 ug/mL (10-30) L 01/20/19 14:35 Lyme Disease Antibody Negative 01/19/19 14:20 Hep Bs Antigen Negative (NEGAT) 01/19/19 12:30 Hep B Core Total Ab Negative (NEGAT) 01/19/19 12:30 Reactive (NEGAT) A 01/19/19 14:20 HIV-1 RNA Qnt (RT-PCR) Cancelled 01/19/19 12:57 HIV 1&2 Ag/Ab, 4th Gen Negative (NEGAT) 01/19/19 12:30 HIV 1&2 Antibody Rapid Cancelled 01/19/19 11:58 US venous: Normal abdominal ultrasound.
[2019-01-21 11:50] VITALS: BP 157/95; PULSE 70; RESP 21; TEMP 36.1; O2SAT 99
--- NOTE | 2019-01-21 13:09 | PT.INIE ---
Date of service: 01/21/19 Time of Service: 10:25 PT Notes Inpatient Physical Therapy Evaluation Date: 01/21/2019 Referring Doctor: Estelita Perla MD PT Orders: PT CONSULT: Toxin induced peripheral neuropathy affecting BLEs, aggressive PT recommended Precautions: Fall. Standard. Bilateral foot drop. Patient Profile/Admitting Diagnosis: Patient is a 43-year-old female who presented to the ED on 01/18/2019 with chief complaints of numbness and tingling of bilateral feet and ankles that began to appear 6 days ago when she overdosed on heroin and was found on the ground by first responders. CT scan of head and lumbosacral spine were unremarkable. Another referral was sent under acute care level on 01/21/2019 for aggressive physical therapy to regain premorbid independent level. PMHX: Social History/Home Situation: Current Functional Limitations: Inability to safely walk due to bilateral steppage gait Equipment Owned/DME: [facility] Subjective: Patient is agreeable to a PT consult. She reiterates that 8 days ago when she overdosed on heroin, she started feeling symptoms of numbness on bilateral feet. She reports instability when standing up. She elaborates that today she is able to move the middle and distal phalanges on toes on both sides minimally. She also reports increase in her ability to feel B her legs on the anterior and medial side but not much yet on the lower inferior half of the lateral distal legs and feet. Objective: General Observation: Patient seen lying in bed upon arrival of this PT. Edema and erythema to bilateral hands and bilateral feet now subsided. Multiple small, dry, and shallow wounds seen on bilateral UE and LE. Mental Status: Alert and oriented x4 Pain: 0/10 ROM: Right Upper Extremity: Shoulder Flexion WFL. Shoulder abduction WFL. Elbow flexion WFL. Wrist flexion WFL. Functional opening and closing of hand WFL. Left Upper Extremity: Shoulder Flexion WFL. Shoulder abduction WFL. Elbow flexion WFL. Wrist flexion WFL. Functional opening and closing of hand WFL. Right Lower Extremity: Hip flexion WFL. Hip abduction WFL. Knee flexion 0-90 while seated at edge of ICU bed. Ankle dorsiflexion absent. Ankle in fully plantarflexed position. Left Lower Extremity: Hip flexion WFL. Hip abduction WFL. Knee flexion 0-90 while seated at edge of ICU bed. Ankle dorsiflexion absent. Ankle in fully plantarflexed position. Strength: Right Upper Extremity: Shoulder flexors 5/5. Shoulder abductors 5/5. Elbow flexors 5/5. Elbow extensors 5/5. Liquor Department Manager strong. Left Upper Extremity: Shoulder flexors 5/5. Shoulder abductors 5/5. Elbow flexors 5/5. Elbow extensors 5/5. Liquor Department Manager strong. Right Lower Extremity: Hip flexors 4/5. Hip abductors 4/5. Knee flexors 3-/5. Knee extensors 4/5. Ankle dorsiflexors 1/5. Ankle plantarflexors 1/5. Left Lower Extremity:Hip flexors 4/5. Hip abductors 4/5. Knee flexors 3-/5. Knee extensors 4/5. Ankle dorsiflexors 1/5. Ankle plantarflexors 1/5. Sensation: Diminished as to pressure on bilateral dorsum and plantar aspect of feet Bed Mobility/Transfers: Rolling independent Supine to sit independent Sit to supine independent Sit to stand independent with front wheeled walker Stand to sit independent with front wheeled walker Bed to chair minimal assist with front wheeled walker. Significant foot slap on bilateral LE with the left more affected than the right. Chair to bed minimal assist with front wheeled walker. Significant foot slap on bilateral LE with the left more affected than the right. Gait: Patient was able to lift hip and knee up to advance each leg but is unable to dorsiflex each foot up due to weakness. Will assess for need for bilateral ankle-foot orthoses to increase safety of gait performance. Balance: Static Sitting: Normal Dynamic Sitting: Normal Static Standing: Fair Dynamic Standing: Fair Special Tests: Mobility Limitations Standardized Measure [facility]-PAC 6 clicks Basic Mobility Inpatient Short Form: Raw Score: 17 CMS Score: 51% deficit Informed Consent/Education: Patient instructed in purpose of PT consult and plan of care. Assessment: Numbness over distribution of [id number]/superficial peroneal nerve on both sides continue to be present. DIP extension and flexion to toes now apparent bilaterally. Strength to bilateral flexors improving. Patient presents with clinical signs and symptoms that have resulted to mobility limitations, gait instability, generalized weakness, and impairment of motor control as demonstrated by the following impairment level findings: 1. Decreased strength to B knee flexors, B ankle dorsiflexors 2. Impaired standing balance 3. Impaired activity tolerance 4. Limitation of joint range of motion in B flexion and B dorsiflexion 5. Numbness to bilateral feet 6. Grade 1 non-pitting edema to B hands and B feet Impairments are contributing to the following functional limitations: 1. Increased dependence with transfers 2. Inability to safely ambulate 3. Increase completion time for mobility ADL performance 4. Increased fall risk Patient is assessed as a 65146 moderate complexity based on the following: History: 43-year-old female presenting with bilateral weakness of dorsiflexors, knee flexors, and plantar flexors resulting to ambulatory dysfunction and increased risk of falls Examination: Demonstrable impairment in strength, balance, and range of motion with underlying impairments and functional limitations as documented above Presentation:Evolving Decision Makin moderate complexity Goals X1 week 1. Static unsupported standing tolerance to at least 5 minutes with SBA 2. Bed-Chair independent 3. Chair-Bed independent 4. SBA gait on level surface with use of FWW for at least 30 feet with bilateral AFOs 5. Independent with room exercise program Plan of Care/Treatment Plan: 1-2x/day, 7 days/week x 1 week. Plan of care has been reviewed with the INFORMAL WAITER/WAITRESS providing the service under Physical Therapy direction. Initiate Physical Therapy intervention for strengthening, bed mobility, transfers, gait, stairs, balance training, use of assistive device. DISCHARGE RECOMMENDATIONS: Patient will benefit from the use of bilateral Multi-PODUS boots in order to prevent further plantarflexion deformity/foot drop. Patient will benefit from acute rehabilitation facility placement in order to progress mobility level, strength, and balance in preparation for a safe discharge to home. Patient will require aggressive skilled PT services to address ongoing B ankle and B knee muscle weakness in order to facilitate return to premorbid independent level. TREATMENT CODE/TIME: 90713 x 31 minutes beginning at 10:25 AM. Thank you very much for this referral. Maira Noel PT, DPT, CLT [facility]
[2019-01-21] MEDS: Mylanta Suspension 30 ML CUP PO (15:21)
--- NOTE | 2019-01-21 15:24 | CHAPLAIN ---
I had two long visits with Alannah today. She shared some personal history, including telling me about a complicated, difficult childhood with her mother, father, step fathers. She was in foster care for some time. She attended mu-ism with her grandparents, feeling safe and comfortable in mu-ism. Her involvement with AA and NA has brought her back to a spiritual connection that she said she had lost. She talked about her significant other, and her sponsor from as being support people. Her children are in foster care now and Alannah said she has a long list of things she needs to do to regain custody. In August we lost everything. It was if I just said to our landlord, 'here just take it all,' she said. She didn't elaborate on why she lost everything. Since then she found a book of Bible quotes and a journal that she's been using. She asked me to print her quotes from Leslie Hudson, along with daily meditations from NA and AA, so I did that. Alannah said she may be transferred to [facility] for rehab. If that happens, she gave me permission to contact the timber robber there, Rev. Josie Lunsford, to connect her to Alannah. I offered a prayer with Alannah and let her know that a timber robber is available 29/12.
--- NOTE | 2019-01-21 16:34 | CMPROGNOTE_ITS ---
Care Management Progress Note S/O: Alannah was sitting up in bed reviewing her folder filled with notes and resource information. Relayed the story of losing her children her apartment and the business . Started using again right after discharge from [facility]. Discussed Acute Physical Rehabilitation Program at [facility] and referral was faxed to them for review. Special orthopedic Boots ordered for her today to help prevent foot drop and further damage to her tendons. Concerned that she did not get a call back from [employer]. Needs assistance and was expecting a [employer] Voucher. Received food stamps but fears she has lost her [employer] benefit and feels like just moving out of the area. Has not been able to contact her claim clerk, Yves Heath, or her contact, Naz Nicholson, to start filling out he disability application. Weepy at times during the discussion. A: 43 y.o. female admitted for ambulatory dysfunction following a heroin overdose P: Placement at an Acute rehabilitation Facility for extensive Physical Therapy. Referral was faxed to [facility]. Will need extensive housing and resource assistance when returning to this community following treatment. Will continue to follow and assist with discharge plans.
[2019-01-21] MEDS: Enoxaparin 40 MG/0.4 ML SYR SC (16:37)
--- NOTE | 2019-01-21 17:55 | PT.INTREAT ---
Date of service: 01/21/19 Time of Service: 14:01 PT Notes Inpatient Physical Therapy Treatment Note [facility] Date: 01/21/2019 PRECAUTIONS: Fall. Standard. Bilateral foot drop. SUBJECTIVE: Patient states she had a weird call from somebody she did not expect to know her phone number in her room. She expressed her frustration about somebody being able to access her via the hospital phone. She reports feeling a stressed out about said call. She reports that she was given her blood pressure medication with her pill for her ADHD at the same time which may have caused her blood pressure to rise. OBJECTIVE: Patient seen in bed, appeared to be in mild distress about an unexpected phone call. ROTARY SHEAR CUTTER was in the room taking patient's blood pressure. VITAL SIGNS: Supine while lying in bed 162/93 mmHg. After 5 minutes still in supine, 175/98 mmHg. PAIN: 0/10 BED MOBILITY/TRANSFERS: Deferred any bed mobility performance today due to hypertensive episode. GAIT: Deferred any activity today dure to hypertensive episode. Will initiate gait activity once bilateral AFOs arrive potentially on Thursday. THERA EX: Deferred any activity today dure to hypertensive episode. ASSESSMENT: Patient not appropriate for exercise participation today due to hypertensive episode. Nursing staff aware. PLAN: Patient understands the plan of initiating resistance exercises to B hips and knees and to increasing standing balance/tolerance in order to increase mobility level. Patient will benefit from acute rehabilitation facility placement for aggressive physical therapy services to regain premorbid independent level. TREATMENT CODE/TIME: 55538 x 15 minutes beginning at 14:01 PM.
[2019-01-21] MEDS: Ferrous Sulfate 325 MG TAB PO (19:52)
[2019-01-21] MEDS: Ascorbic Acid 500 MG TAB 250 MG PO (19:52)
[2019-01-21 20:30] LABS: Anaplasma phagocytophilum Negative (Negative); B. miyamotoi PCR Negative (Negative); Babesia divergens/MO-1 Negative (Negative); Babesia duncani Negative (Negative); Babesia microti Negative (Negative); Ehrlichia chaffeensis Negative (Negative); Ehrlichia ewingii/canis Negative (Negative); Ehrlichia muris eauclairensis Negative (Negative)
--- NOTE | 2019-01-21 20:42 | NUR.NOTE ---
2029--Requested to see patient by clinical coordinator. Pt demanding to go outside to smoke. Explained it is against hospital policy and offered pt nicotine replacement which she declined. She became loud and started cursing and stated she has not been helped while she has been here. States she will sign out AMA if she has to. Once again explained to pt that smoking on hospital grounds is prohibited. Pt stating she needs to take a taxi to her boyfriend's house to get her things because he won't answer his phone. Offered to call care management to assist in retrieval of pt's belongings. Pt stated they had not helped her at all and declined. 2044--Advised by ROSARIO Bridges that pt had signed out AMA, attempting to leave with IID intact by wearing long sleeves and denying that she had one. Stated she would return via ED for readmission.
--- NOTE | 2019-01-21 21:05 | NUR.NOTE ---
Addendum entered by Ghazala Agustin 01/21/19 21:25: Entry time was 2037 not 1837 as recorded. CS Original Note: Nursing Note: 1837 Pt came to nursing station and said, I want to sign that paper. I will be back tonight or in the morning. If I am going to [facility], I have to get some things from home. I explained to her that if she signed herself out that she would be required to come back through the ER. She replied, I know that. I told her that she had to have her IV taken out before she could leave. She said, I don't have one, they have been giving me shots in my belly. She had on a long sleeve shirt/jacket and pulled her sleeves up but not far enough to be able to see the IV. Monalisa, direct care RN came over and told her, Yes you do have an IV, and I have to take it out. At this point she consented to let RN remove the IV from her left upper arm. She had signed AMA form and when IV was removed she left the floor via W/C under her own power via elevator.
--- NOTE | 2019-01-22 00:09 | NUR.NOTE ---
Patient was restless,agitated and anxious. She state she has one cigarette in her possession and she wants to go outside and smoke it. Patient was re-informed about the hospital policy about smoking. She state she understand that but she is really anxious because she has not heard about from her since morning and he might be, out shooting up,, she also mentioned that she has not seen her kids for sometime now because they were taken away from her by DCF. The charge nurse was informed who subsequently informed the supervisor quilting. Patient decided that she wanted to leave because she is not getting the chance to and smoke. She was denying that she has an IV access, but i told she can't leave the with the in her hand, same was finally removed and patient left the unit at 21:04 via wheelchair.
--- NOTE | 2019-01-22 10:53 | PT.INDS ---
Date of service: 01/22/19 Time of Service: 10:53 PT Notes Date: 01/22/2019 Referring Doctor: Estelita Perla MD PT Orders: PT CONSULT: Toxin induced peripheral neuropathy affecting BLEs, aggressive PT recommended Precautions: Fall. Standard. Bilateral foot drop. Treatment Dates: 01/21/19 (2 sessions) This document serves as a summary of care. No PT services were provided on this date. Patient Profile/Admitting Diagnosis: Patient is a 43-year-old female who presented to the ED on 01/18/2019 with chief complaints of numbness and tingling of bilateral feet and ankles that began to appear 6 days ago when she overdosed on heroin and was found on the ground by first responders. CT scan of head and lumbosacral spine were unremarkable. Another referral was sent under acute care level on 01/21/2019 for aggressive physical therapy to regain premorbid independent level. Patient was seen for 2 PT sessions on 01/21/19 prior to leaving [facility]. PMHX: Social History/Home Situation: Current Functional Limitations: Inability to safely walk due to bilateral steppage gait Equipment Owned/DME: [employer] Subjective: Unable to obtain. Objective: Pain: 0/10 ROM: Right Upper Extremity: Shoulder Flexion WFL. Shoulder abduction WFL. Elbow flexion WFL. Wrist flexion WFL. Functional opening and closing of hand WFL. Left Upper Extremity: Shoulder Flexion WFL. Shoulder abduction WFL. Elbow flexion WFL. Wrist flexion WFL. Functional opening and closing of hand WFL. Right Lower Extremity: Hip flexion WFL. Hip abduction WFL. Knee flexion 0-90 while seated at edge of ICU bed. Ankle dorsiflexion absent. Ankle in fully plantarflexed position. Left Lower Extremity: Hip flexion WFL. Hip abduction WFL. Knee flexion 0-90 while seated at edge of ICU bed. Ankle dorsiflexion absent. Ankle in fully plantarflexed position. Strength: Right Upper Extremity: Shoulder flexors 5/5. Shoulder abductors 5/5. Elbow flexors 5/5. Elbow extensors 5/5. Vehicle Maintenance Supervisor strong. Left Upper Extremity: Shoulder flexors 5/5. Shoulder abductors 5/5. Elbow flexors 5/5. Elbow extensors 5/5. Vehicle Maintenance Supervisor strong. Right Lower Extremity: Hip flexors 4/5. Hip abductors 4/5. Knee flexors 3-/5. Knee extensors 4/5. Ankle dorsiflexors 1/5. Ankle plantarflexors 1/5. Left Lower Extremity:Hip flexors 4/5. Hip abductors 4/5. Knee flexors 3-/5. Knee extensors 4/5. Ankle dorsiflexors 1/5. Ankle plantarflexors 1/5. Sensation: Diminished as to pressure on bilateral dorsum and plantar aspect of feet Bed Mobility/Transfers: Rolling independent Supine to sit independent Sit to supine independent Sit to stand independent with front wheeled walker Stand to sit independent with front wheeled walker Bed to chair minimal assist with front wheeled walker. Significant foot slap on bilateral LE with the left more affected than the right. Chair to bed minimal assist with front wheeled walker. Significant foot slap on bilateral LE with the left more affected than the right. Gait: Patient was able to lift hip and knee up to advance each leg but is unable to dorsiflex each foot up due to weakness. Will assess for need for bilateral ankle-foot orthoses to increase safety of gait performance. Balance: Static Sitting: Normal Dynamic Sitting: Normal Static Standing: Fair Dynamic Standing: Fair Special Tests: Mobility Limitations Standardized Measure [facility] 6 clicks Basic Mobility Inpatient Short Form: Raw Score: 17 CMS Score: 51% deficit Informed Consent/Education: Patient instructed in purpose of PT consult and plan of care. Assessment: Patient participated in skilled PT intervention for 2 sessions on 01/21/19, prior to leaving acute care AMA. No significant functional gains were achieved during this time, as patient requires intensive intervention. At time of last PT session, patient was unable to demonstrate independent transfers or ambulation. Impairments are contributing to the following functional limitations: 1. Increased dependence with transfers 2. Inability to safely ambulate 3. Increase completion time for mobility ADL performance 4. Increased fall risk Goals X1 week 1. Static unsupported standing tolerance to at least 5 minutes with SBA 2. Bed-Chair independent 3. Chair-Bed independent 4. SBA gait on level surface with use of FWW for at least 30 feet with bilateral AFOs 5. Independent with room exercise program GOALS 1-5 NOT MET Plan of Care/Treatment Plan: Patient has left the hospital AMA. Discharge from PT services in acute care setting at this time. Beatriz Vasques, PT, DPT [facility]
== END 2019-01-21 20:38 | disposition left against medical advice (07) | DRG 945 ==
LOC: ER 17:28 → MS 17:40
PROVIDERS: Internal Medicine; Nurse Practitioner Family; Psychiatry & Neurology Neurology; Admitting Provider General Practice; Emergency Provider Student in an Organized Health Care Education/Training Program; PCP Family Medicine; Visit Provider Internal Medicine
DX: T40.1X1D Poisoning by heroin, accidental (unintentional), subsequent encounter (principal); G61.0 Guillain-Barre syndrome; G62.0 Drug-induced polyneuropathy; R26.2 Difficulty in walking, not elsewhere classified; R53.1 Weakness; R74.0 Nonspecific elevation of levels of transaminase and lactic acid dehydrogenase [LDH]; R76.8 Other specified abnormal immunological findings in serum; D50.9 Iron deficiency anemia, unspecified; F90.2 Attention-deficit hyperactivity disorder, combined type; F32.9 Major depressive disorder, single episode, unspecified; F17.210 Nicotine dependence, cigarettes, uncomplicated
CPT/HCPCS: 36415; 80048; 80053; 80076; 82550; 85652; 86704; 86803; 87340; 87389; 87536; 87798; 93005; 97162; 97530; 99222; 99223; 99231; 99232; 99285; J1650; 70450; 72131; 76700; 80329; 81003; 81015; 82607; 82728; 82746; 83540; 83550; 83735; 83880; 84484; 85025; 86618; 87522; 93010; 99219; 99284; G0378; J2930

== ENCOUNTER 2019-02-03 10:41 | Emergency (ER) | payer MEDICAID, SELFPAY ==
[2019-02-03 10:51] VITALS: BP 126/89; PULSE 81; RESP 16; TEMP 36.2; O2SAT 98
--- NOTE | 2019-02-03 11:05 | W.ED.GENAD ---
Discharge Plan Disposition Patient Disposition: HOME Condition: Stable Discharge Details Chief Complaint: RashLesion Clinical Impression: Cellulitis and abscess of left leg Primary Care Provider: Job Mars ED Provider: Delano Moon Home Meds and New Rx's Prescriptions: New amoxicillin-pot clavulanate [Augmentin] 875-125 mg tablet 1 tab PO BID Qty: 14 RF: 0 sulfamethoxazole-trimethoprim [Bactrim DS] 800-160 mg tablet 1 tab PO BID Qty: 14 RF: 0 Continued trazodone 100 MG tablet 100 mg PO HS Qty: 90 RF: 0 dexmethylphenidate 35 mg capsule,ER biphasic 50-50 35 mg PO QAM RF: 0 gabapentin 300 mg capsule 800 mg PO TID RF: 0 topiramate [Topamax] 50 mg tablet 25 mg PO BID RF: 0 Discharge Instructions Instructions: Cellulitis (ED) Stand Alone Forms: Physical Therapy Referral Medical Decision Making 43 yo female with hx of opioid dependence who was admitted a week ago for bilateral foot drop secondary to heroin overdose and was supposed to go to inpatient rehab but declined, who comes in with continued drainage from left lower leg. States has hx of abscess in this area, didn't finish abx about a month ago per pt. Denies drug use since d/c. Has draining wounds on left medial mid leg, one being 3cm in diameter and other 1cm in diameter. No fluctuance now so suspect absces that drained, hs 3cm surrouding erythema. no severe pain or fevers so doubt sepsis or nec fasc. Will start po abx. She is still declining inpatient rehab but is open to outpatient which I will refer her for Differential Diagnosis cellulitis, abscess HPI General Mode of arrival: ambulatory. Date/Time Provider Initiated Documentation: 02/03/19 11:00. Limitations to Documentation: no limitations. Information obtained by: patient. History of Present Illness 43 year old F presents to the emergency department with the chief complaint of rash, described as moderate, Patient started experiencing this week(s) (1) and it has been constant. No relieving factors improve symptom(s), No exacerbating factors reported . Patient did receive the following treatments prior to arrival, none Related Data Home Medications Medication Instructions Recorded Confirmed trazodone 100 mg PO HS #90 tab-cap 06/26/17 02/03/19 dexmethylphenidate 35 mg 35 mg PO QAM 08/17/18 02/03/19 capsule,extended release [id number] gabapentin 300 mg capsule 800 mg PO TID cap 09/28/18 02/03/19 topiramate 50 mg tablet 25 mg PO BID tab 09/28/18 02/03/19 amoxicillin-pot clavulanate 1 tab PO BID #14 tab 02/03/19 [Augmentin] sulfamethoxazole-trimethoprim 1 tab PO BID #14 tab 02/03/19 [Bactrim DS] Previous Rx's Medication Instructions Recorded trazodone 100 mg PO HS #90 tab-cap 06/26/17 amoxicillin-pot clavulanate 1 tab PO BID #14 tab 02/03/19 [Augmentin] sulfamethoxazole-trimethoprim 1 tab PO BID #14 tab 02/03/19 [Bactrim DS] Allergies Allergy/AdvReac Type Severity Reaction Status Date / Time diphenhydramine HCl AdvReac paradoxical Verified 02/03/19 10:54 [From Benadryl] stimulant General Stated Complaint: RashLesion CARMINE: 3 Review of Systems Review of Systems All systems reviewed & are unremarkable except as noted in HPI and below Constitutional Denies chills, Denies fever(s) and Denies weakness Cardiovascular Denies chest pain and Denies dyspnea Respiratory Denies cough and Denies dyspnea Gastrointestinal Denies abdominal pain, Denies nausea and Denies vomiting Musculoskeletal Denies joint swelling Neurologic Denies weakness [facility] Medical History (Updated 01/20/19 @ 15:29 by Estelita Perla MD) Amphetamine abuse, episodic (Acute 11/14/16) Relapse: Adderal fall 2015 until 10/17/16: Isauro Iraheta identified Anxiety Attention deficit hyperactivity disorder (ADHD), combined type (Acute 04/23/17) updating diagnosis from ADHD unspecified; screen 03/2017; h/o prior rx Dr Beckman; counselor Isauro Iraheta, consult Dr Manuel Depression Opiate dependence Polysubstance abuse (Acute) Smoker (Acute 09/16/13) 0.5 PPD, working with Marianne Michael Surgical History History of dilatation and curettage (Inactive) History of dilatation and curettage (Acute) Social History (Updated 01/19/19 @ 16:33 by MOE Garcia Smoking/Tobacco Use Status: Current every day Tobacco Type: cigarettes Alcohol Intake: current Alcohol Intake frequency: a few times a week Drug use: Occasionally Substance use type: marijuana, heroin, amphetamines and other Details: wellbutrin Adopted: No Foster care: Yes Household members: significant other Number of Children: 3 current occupation: Former [employer] Pets and animals: Yes Seatbelt use: always Helmet use: Yes Drive intox or ride w/intox transit mixer driver: No Working smoke detector in home: Yes Fire extinguisher in home: Yes Carbon monox detector in home: Yes Firearms in home: No Do you feel safe at home: Yes Do you feel safe in your relationship?: Yes Victim of physical abuse: No Victim of emotional abuse: No Victim of sexual abuse: No Additional Social history: 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 Lost [employer] license. Has 3 kids in foster care. Exam Const General: no acute distress Orientation: alert HENMT Head: normal to inspection Ears: external ears normal General nose exam: external nose normal Mouth: moist mucous membranes Eyes General: appearance normal, both eyes and all related structures Neck Neck: normal visual inspection Resp Effort & Inspection: normal respiratory effort and able to speak in complete sentences Cardio Rate: regular rate Skin General skin exam: elasticity normal Neuro General: alert and oriented x3 Extrem General: full ROM and normal capillary refill Psych Mental Status: mental status grossly normal Course Vital Signs Temperature 36.2 C L 02/03/19 10:51 Pulse 81 02/03/19 10:51 Respiratory Rate 16 02/03/19 10:51 Blood Pressure 126/89 02/03/19 10:51 Pulse Oximetry 98 02/03/19 10:51 Temperature 36.2 C L 02/03/19 10:51 Temperature Source Skin 02/03/19 10:51 Pulse 81 02/03/19 10:51 Respiratory Rate 16 02/03/19 10:51 Respiratory Effort Non-Labored 02/03/19 10:51 Blood Pressure 126/89 02/03/19 10:51 Blood Pressure Position Sitting 02/03/19 10:51 Pulse Oximetry 98 02/03/19 10:51 Oxygen Delivery Method Room Air 02/03/19 10:51 Oxygen Flow Rate 0 02/03/19 10:51 Pain Level 0 02/03/19 10:51
[2019-02-03] MEDS: Sulfameth/Trimeth DS TAB 1 TAB PO (11:10)
[2019-02-03] MEDS: Amoxicillin 875/Clav. 125 TAB PO (11:10)
== END 2019-02-03 11:21 | disposition home or self-care (01) ==
PROVIDERS: Emergency Provider Emergency Medicine; PCP Family Medicine
DX: L02.416 Cutaneous abscess of left lower limb (principal); L03.116 Cellulitis of left lower limb; T36.96XA Underdosing of unspecified systemic antibiotic, initial encounter
CPT/HCPCS: 99283

== ENCOUNTER 2019-06-06 11:51 | Emergency (ER) | payer MEDICAID, SELFPAY ==
[2019-06-06 11:51] VITALS: BP 103/70; PULSE 83; RESP 14; TEMP 36.6; O2SAT 98
--- NOTE | 2019-06-06 12:18 | W.ED.GENAD ---
Discharge Plan Disposition Patient Disposition: HOME Condition: Good Discharge Details Chief Complaint: RespSymp Clinical Impression: URI (upper respiratory infection) Primary Care Provider: Oswaldo Spain ED Provider: Codi Patterson Home Meds and New Rx's Prescriptions: New doxycycline hyclate 100 mg capsule 100 mg PO BID Qty: 14 RF: 0 benzonatate [Tessalon Perles] 100 mg capsule 100 mg PO TID PRN (Reason: cough) Qty: 14 RF: 0 Continued trazodone 100 MG tablet 100 mg PO HS Qty: 90 RF: 0 dexmethylphenidate 35 mg capsule,ER biphasic 50-50 35 mg PO QAM RF: 0 gabapentin 300 mg capsule 800 mg PO TID RF: 0 topiramate [Topamax] 50 mg tablet 25 mg PO BID RF: 0 Discharge Instructions Instructions: Upper Respiratory Infection (ED) Additional Instructions: Encourage water intake. Tylenol and/or ibuprofen as needed for discomfort. Please take the doxycycline as prescribed. Even if symptoms improve, please take the entire course. Please follow-up with your primary care in 1 week for reevaluation. If you develop difficulty breathing, shortness of breath or other new/worsening symptoms please seek care urgently once again. Referrals: Oswaldo Spain, [employer] [Primary Care Provider] - Discharge Data Discharge Date/Time-TO BE ENTERED AT DEPARTURE: 06/06/19 13:48 Medical Decision Making Patient is a 43 year old female with hx of ADHD, active smoker, anemia, depression, anxiety, opiate abuse, presenting today with c/c of cough and pleuritic CP. States that for the past week she has had chest and nasal congestion. Endorses green sputum, sore throat. Has felt warm. Around sick contacts. States that cough has progressively been worsening, particularly over the past few days. On exam, patient is resting comfortably. She has a dry cough. No respiratory distress. Lungs are clear. Normal cardiovascular exam. No LE edema, no calf tenderness. Patient is PERC negative, clinical history more consistent with URI with possible pneumonia. EKG was reviewed by Dr. Cardozo. Patient does have T wave inversions in V1, V2, V3. This is changed from his previous EKG on 01/21/2019. Will recheck as this may be associate with lead placement. Otherwise, no acute abnormalities REpeat ECG shows resolution of these concerns, this was likely associated with lead placement. ECG reviewed again by Dr. Cardozo with no acute ischemic changes noted. CXR reviewed by radiologist: FINDINGS: LUNGS: Clear. No pleural abnormality seen. HEART: Normal. MEDIASTINUM: Normal. OTHER FINDINGS:Normal. IMPRESSION: No acute pulmonary finding. Patient is resting comfortably. SHe is hydrating orally. Reviewed the findings of the x-ray. Initially, head treating the patient is for chest x-ray does not have acute abnormality nor is her exam. However, patient reporting that she was recently diagnosed with hepatitis C and is pending HIV testing. I am concerned about the patient's immune status. We will begin treatment with doxycycline. Discussed my concerns with the patient. I ahve asked that she f/u with PCP in one week for reevaluation. All of her quesitons and concerns were addressed, she is in agreement with s plan. Return precautions discussed in depth with the patient. HPI General Mode of arrival: EMS. Date/Time Provider Initiated Documentation: 06/06/19 12:11. Limitations to Documentation: no limitations. Information obtained by: patient, EMS and RN notes reviewed. History of Present Illness 43 year old F presents to the emergency department with the chief complaint of cough, left sided pleuritic pain, described as moderate, with intensity rated at 7. Quality is described as aching, and is localized to the chest. Patient reports no radiation. Patient started experiencing this week(s) (1.5, progressively worsening) and it has been constant. Immobilization improves symptom(s), Movement worsens symptoms (with cough) . Patient notes chest pain and cough; denies diaphoresis, fever/chills, headaches, loss of appetite, malaise, nausea/vomiting, rash, shortness of breath and syncope. Patient did receive the following treatments prior to arrival, none Related Data Home Medications Medication Instructions Recorded Confirmed trazodone 100 mg PO HS #90 tab-cap 06/26/17 06/06/19 dexmethylphenidate 35 mg 35 mg PO QAM 08/17/18 06/06/19 capsule,extended release [id number] gabapentin 300 mg capsule 800 mg PO TID cap 09/28/18 06/06/19 topiramate 50 mg tablet 25 mg PO BID tab 09/28/18 06/06/19 benzonatate [Tessalon Perles] 100 mg PO TID PRN #14 cap 06/06/19 doxycycline hyclate 100 mg PO BID #14 cap 06/06/19 Previous Rx's Medication Instructions Recorded trazodone 100 mg PO HS #90 tab-cap 06/26/17 benzonatate [Tessalon Perles] 100 mg PO TID PRN #14 cap 06/06/19 doxycycline hyclate 100 mg PO BID #14 cap 06/06/19 Allergies Allergy/AdvReac Type Severity Reaction Status Date / Time diphenhydramine HCl AdvReac paradoxical Verified 06/06/19 11:55 [From Benadryl] stimulant General Stated Complaint: RespSymp CARMINE: 3 Review of Systems Constitutional Constitutional: Reports as per HPI and Denies headache(s) Eyes Eyes: Reports as per HPI, Denies eye discharge and Denies irritation ENT Ears, Nose, Mouth, and Throat: Reports as per HPI and Denies headache(s) Cardiovascular Cardiovascular: Reports as per HPI, Denies chest pain and Denies dyspnea Respiratory Respiratory: Reports as per HPI and Denies dyspnea Gastrointestinal Gastrointestinal: Reports as per HPI, Denies abdominal pain, Denies change in bowel habits, Denies nausea and Denies vomiting Integumentary/Breasts Skin/Breast: Reports as per HPI and Denies rash Neurologic Neurologic: Reports as per HPI and Denies headache(s) PFSH Medical History Amphetamine abuse, episodic (Acute 11/14/16) Relapse: Adderal fall 2015 until 10/17/16: Isauro Iraheta identified Anxiety Attention deficit hyperactivity disorder (ADHD), combined type (Acute 04/23/17) updating diagnosis from ADHD unspecified; screen 03/2017; h/o prior rx Dr Beckman; counselor Isauro Iraheta, consult Dr Manuel Depression Opiate dependence Polysubstance abuse (Acute) Smoker (Acute 09/16/13) 0.5 PPD, working with Marianne Michael Surgical History History of dilatation and curettage (Inactive) History of dilatation and curettage (Acute) Social History (Updated 01/19/19 @ 16:33 by Nikki Gee MD) Smoking/Tobacco Use Status: Current every day Tobacco Type: cigarettes Alcohol Intake: current Alcohol Intake frequency: a few times a week Drug use: Occasionally Substance use type: marijuana, heroin, amphetamines and other Details: wellbutrin Adopted: No Foster care: Yes Household members: significant other Number of Children: 3 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 Lost [facility] license. Has 3 kids in foster care. Exam Const General: cooperative, healthy appearing, comfortable, no acute distress, well developed and well groomed Nutritional Appearance: average body habitus and well nourished Orientation: alert and awake [facility] Head: normal to inspection, normocephalic and atraumatic Ears: hearing grossly normal bilaterally, external ears normal and TM's normal bilaterally General nose exam: external nose normal and nares normal Face and sinus: normal facial exam, sinuses nontender and face symmetric Mouth: oral mucosae normal, lip normal, tongue normal, oropharynx normal and moist mucous membranes Teeth and gingiva: dentition normal Throat: posterior oropharynx normal, tonsils normal and uvula midline Eyes General: appearance normal, both eyes and all related structures Neck Neck: normal visual inspection, full ROM, no lymphadenopathy and no meningeal signs Resp Effort & Inspection: normal respiratory effort, able to speak in complete sentences and no respiratory distress Auscultation: clear to auscultation bilaterally, no rales, no rhonchi and no wheezes Cardio Rate: regular rate Rhythm: regular rhythm Heart Sounds: S1 normal and S2 normal Skin General skin exam: no rashes or lesions noted Neuro General: alert and awake Cognition: normal cognition Speech: speech normal Gait: normal gait Extrem General: normal to inspection, normal capillary refill, no pedal edema, no calf tenderness and normal gait Psych Appearance: grossly normal and well kempt Mental Status: mental status grossly normal Speech and Movement: speech and movement normal Course Vital Signs Vital signs: Vital Signs Temperature 36.6 C 06/06/19 11:51 Pulse 83 06/06/19 11:51 Respiratory Rate 14 06/06/19 11:51 Blood Pressure 103/70 06/06/19 11:51 Pulse Oximetry 98 06/06/19 11:51 Temperature 36.6 C 06/06/19 11:51 Temperature Source Temporal Artery Scan 06/06/19 11:51 Pulse 83 06/06/19 11:51 Respiratory Rate 14 06/06/19 11:51 Respiratory Effort Non-Labored 06/06/19 12:04 Respiratory Depth Normal 06/06/19 12:04 Blood Pressure 103/70 06/06/19 11:51 Blood Pressure Position Sitting 06/06/19 11:51 Pulse Oximetry 98 06/06/19 11:51 Oxygen Delivery Method Room Air 06/06/19 11:51 Oxygen Flow Rate 0 06/06/19 11:51 Pain Level 7 06/06/19 11:51
--- NOTE | 2019-06-06 12:39 | DI.RAD_ITS ---
EXAM: XR CHEST 2V PA LATERAL CLINICAL HISTORY: cough. TECHNIQUE: 2D digital imaging was performed. COMPARISON: XR CHEST 2V PA LATERAL from 02/23/2018 FINDINGS: LUNGS: Clear. No pleural abnormality seen. HEART: Normal. MEDIASTINUM: Normal. OTHER FINDINGS:Normal. IMPRESSION: No acute pulmonary findings.
[2019-06-06 13:41] VITALS: BP 107/65; PULSE 106; RESP 16; TEMP 37; O2SAT 90
== END 2019-06-06 13:48 | disposition home or self-care (01) ==
PROVIDERS: Emergency Provider Physician Assistant; PCP Nurse Practitioner Family
DX: J06.9 Acute upper respiratory infection, unspecified (principal); B19.20 Unspecified viral hepatitis C without hepatic coma
CPT/HCPCS: 81025; 93005; 99284; 71046; 93010; 99283

== ENCOUNTER 2019-06-27 13:12 | Emergency (ER) | payer MEDICAID, SELFPAY ==
[2019-06-27 13:23] VITALS: BP 130/82; PULSE 64; RESP 16; TEMP 36.7; O2SAT 100
--- NOTE | 2019-06-27 13:40 | W.ED.GENAD ---
Discharge Plan Disposition Patient Disposition: HOME Condition: Stable Discharge Details Chief Complaint: Cellulitis Clinical Impression: Abscess Primary Care Provider: Oswaldo Spain ED Provider: Kimberly Cardozo Home Meds and New Rx's Prescriptions: New cephalexin [Keflex] 500 mg capsule 500 mg PO QID Qty: 39 RF: 0 sulfamethoxazole-trimethoprim [Bactrim DS] 800-160 mg tablet 1 tab PO BID Qty: 19 RF: 0 Continued trazodone 100 MG tablet 100 mg PO HS Qty: 90 RF: 0 gabapentin 300 mg capsule 800 mg PO TID RF: 0 topiramate [Topamax] 50 mg tablet 25 mg PO BID RF: 0 benzonatate [Tessalon Perles] 100 mg capsule 100 mg PO TID PRN (Reason: cough) Qty: 14 RF: 0 guanfacine 1 mg Tablet 1 mg PO .QHS RF: 0 Discharge Instructions Instructions: Cephalexin (By mouth), Sulfamethoxazole/Trimethoprim (By mouth), Abscess (ED) Additional Instructions: Please return immediately to the emergency department if you develop any new or worsening symptoms, if your condition does not improve as expected, or if you become otherwise concerned. It is extremely important that you call soon as possible to make an appointment to be seen in follow-up for this visit by your primary care doctor. If you are unable to make an appointment to be seen by her primary care provider in 72 hours, please return to the emergency department 72 hours from now so that we may recheck your wound. Referrals: Oswaldo Spain, [employer] [employer] [Primary Care Provider] - Discharge Data Discharge Date/Time-TO BE ENTERED AT DEPARTURE: 06/27/19 15:50 Medical Decision Making Alannah Bass is a 43-year-old woman with a history of IV heroin use in the past, no IV drug use since 02/24 presenting to the emergency department with left lower leg abscess that began yesterday morning. On exam patient is very well and nontoxic appearing. There is a 2 x 2 centimeter area of fluctuance to the posterior left lower leg, with approximately 6 x 6 cm surrounding erythema with some induration. There is no crepitus. DP pulses intact and symmetric. Left lower leg is nontender except in area of fluctuance. Bedside ultrasound shows 1 x 2 cm fluid collection in area of fluctuance. Exam/history is not consistent with sepsis, DVT. Patient reports that she was supposed to have labs drawn on the order of her PCP. Given history of IV drug use, plan for screening labs, blood cultures. Lab attempted to draw blood x2. Patient reports that she also assessed to have her blood drawn under ultrasound guidance, she reports that there are some labs that her PCP had ordered that she is not sure of, and would prefer to not have to have labs drawn today and then again for PCP. Patient refuses any blood draw at this time. I did discuss the risks of not having blood drawn with patient, including /permanent disability with patient, she verbalized understanding the risks and continued to refuse. Abscess incised and drained, please see procedure note. Moderate amount of pus expressed, culture sent. Plan for Keflex, Bactrim given surrounding cellulitis. Plan for patient to have wound check in 72 hours, either here in emergency department or with her PCP. I had a lengthy discussion with Patient regarding return to emergency department precautions, home care, and importance of outpatient follow-up. Pt verbalizes understanding of the plan and is amenable. Patient discharged to home with clear plan for outpatient follow-up. All questions were answered. Disposition decision was made weighing the risks and benefits of hospitalization versus outpatient treatment, the risk for further decompensation, and the patient's wishes. Medical Records Medical records reviewed: Yes I reviewed the patient's medical records. HPI General Mode of arrival: ambulatory. Date/Time Provider Initiated Documentation: 06/27/19 13:37. Limitations to Documentation: no limitations. Information obtained by: patient, RN notes reviewed and old records reviewed. HPI Narrative: Alannah Bass is a 43-year-old woman with a history of IV heroin use, opiate use disorder in the past presenting to the emergency department with abscess. Patient reports that she has had several abscesses in the past, though none within the last few months. Patient reports that she has not used IV drugs since 02/24. Patient reports that yesterday morning she noticed what looked to be an early abscess on the back of her left lower leg. She was using warm soaks on the area at home, however she reports that redness surrounding the area and pain in the area has increased since yesterday morning. Patient denies any other pain, any other rash, fevers, vomiting, diarrhea, numbness, focal weakness, cough, shortness of breath. Patient reports that she otherwise feels well in his usual state of health. Has been eating and drinking as usual. Related Data Home Medications Medication Instructions Recorded Confirmed trazodone 100 mg PO HS #90 tab-cap 06/26/17 06/27/19 gabapentin 300 mg capsule 800 mg PO TID cap 09/28/18 06/27/19 topiramate 50 mg tablet 25 mg PO BID tab 09/28/18 06/27/19 benzonatate [Tessalon Perles] 100 mg PO TID PRN #14 cap 06/06/19 06/27/19 cephalexin [Keflex] 500 mg PO QID #39 cap 06/27/19 guanfacine 1 mg PO .QHS 06/27/19 06/27/19 sulfamethoxazole-trimethoprim 1 tab PO BID #19 tab 06/27/19 [Bactrim DS] Previous Rx's Medication Instructions Recorded trazodone 100 mg PO HS #90 tab-cap 06/26/17 benzonatate [Tessalon Perles] 100 mg PO TID PRN #14 cap 06/06/19 cephalexin [Keflex] 500 mg PO QID #39 cap 06/27/19 sulfamethoxazole-trimethoprim 1 tab PO BID #19 tab 06/27/19 [Bactrim DS] Allergies Allergy/AdvReac Type Severity Reaction Status Date / Time diphenhydramine HCl AdvReac paradoxical Verified 06/27/19 13:26 [From Benadryl] stimulant General Stated Complaint: Cellulitis CARMINE: 3 Review of Systems Narrative: Constitutional: denies fevers Eyes: denies eye pain ENT: denies ear pain, dental pain, sore throat Cardiovascular: denies chest pain Respiratory: denies SOB, cough GI: denies abdominal pain, vomiting, diarrhea : denies flank pain MSK: denies back pain, neck pain, arthralgias, myalgias Skin: reports rash as per HPI Neuro: denies headaches, numbness, weakness PFSH Medical History Amphetamine abuse, episodic (Acute 11/14/16) Relapse: Adderal fall 2015 until 10/17/16: Isauro Iraheta identified Anxiety Attention deficit hyperactivity disorder (ADHD), combined type (Acute 04/23/17) updating diagnosis from ADHD unspecified; screen 03/2017; h/o prior rx Dr Beckman; counselor Isauro Iraheta, consult Dr Manuel Depression Opiate dependence Polysubstance abuse (Acute) Smoker (Acute 09/16/13) 0.5 PPD, working with Marianne Dunnean Social History Smoking/Tobacco Use Status: Current every day Tobacco Type: cigarettes Alcohol Intake: former Drug use: Occasionally Substance use type: marijuana, heroin, amphetamines and other Details: wellbutrin Details: nothing since 02/24 Adopted: No Foster care: Yes Household members: significant other Number of Children: 3 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 Has 3 kids in foster care. Exam Narrative Exam Narrative: Constitutional: well and [id number], pleasant, conversing normally HENT: head atraumatic/normocephalic/normal inspection, mucous membranes moist Eyes: conjunctiva normal, sclera normal, pupils 3mm b/l Neck: no stridor, normal ROM, trachea midline Chest: normal inspection Resp: normal work of breathing, LCTAB Cardio: normal rate, normal rhythm, no murmur appreciated Back: normal inspection, no rash Skin: warm, dry, normal color, no rash except as noted on extremity exam Neuro: alert, not altered, grossly non-focal, normal tone Ext: Posterior left lower leg with 2 x 2 centimeter area of fluctuance, with approximately 6 x 6 cm surrounding erythema with some induration, no crepitus. DP pulses intact and symmetric. Left lower leg is nontender except in area of fluctuance. No posterior calf tenderness on the right, normal inspection of the right lower extremity Psych: normal mood, normal affect, normal behavior Course Vital Signs Vital signs: Vital Signs Temperature 36.7 C 06/27/19 13:23 Pulse 64 06/27/19 13:23 Respiratory Rate 16 06/27/19 13:23 Blood Pressure 130/82 06/27/19 13:23 Pulse Oximetry 100 06/27/19 13:23 Temperature 36.7 C 06/27/19 13:23 Temperature Source Skin 06/27/19 13:23 Pulse 64 06/27/19 13:23 Respiratory Rate 16 06/27/19 13:23 Respiratory Effort Non-Labored 06/27/19 13:23 Blood Pressure 130/82 06/27/19 13:23 Blood Pressure Position Sitting 06/27/19 13:23 Pulse Oximetry 100 06/27/19 13:23 Oxygen Delivery Method Room Air 06/27/19 13:23 Oxygen Flow Rate 0 06/27/19 13:23 Pain Level 7 06/27/19 13:23 Procedures Abscess I/D Site: Lower Extremity Side (if applicable): Left Sedation/analgesia: None Local Anesthetic: Other Anesthetic (Topical LET) Technique: Incised with #11 Blade Amount of fluid expressed (mL): 2.0 Irrigation: Yes Packing used?: None Complications: Other (No complications, patient tolerated well)
[2019-06-27] MEDS: Lidocaine/Epinephri/Tetracaine Topical Gel 3 ML TP (14:55)
[2019-06-27] MEDS: Sulfameth/Trimeth DS TAB 1 TAB PO (15:37)
[2019-06-27] MEDS: Cephalexin 500 MG CAP PO (15:37)
[2019-06-27 15:49] VITALS: BP 118/82; PULSE 60; TEMP 36.9; O2SAT 100
[2019-06-27 15:50] VITALS: BP 118/82; PULSE 60; RESP 16; TEMP 36.9; O2SAT 100
== END 2019-06-27 15:50 | disposition home or self-care (01) ==
PROVIDERS: Emergency Provider Student in an Organized Health Care Education/Training Program; PCP Nurse Practitioner Family
DX: L03.116 Cellulitis of left lower limb (principal); L02.416 Cutaneous abscess of left lower limb; F11.21 Opioid dependence, in remission; Z53.29 Procedure and treatment not carried out because of patient's decision for other reasons
CPT/HCPCS: 10060; 80053; 87040; 87077; 85025; 87070; 87186

== ENCOUNTER 2019-06-30 10:43 | Emergency (ER) | payer MEDICAID, SELFPAY ==
--- NOTE | 2019-06-30 10:49 | W.ED.GENAD ---
Discharge Plan Disposition Patient Disposition: HOME Condition: Improving Discharge Details Chief Complaint: Recheck Clinical Impression: Abscess Primary Care Provider: Oswaldo Spain ED Provider: oCdi Patterson Home Meds and New Rx's Prescriptions: Continued trazodone 100 MG tablet 100 mg PO HS Qty: 90 RF: 0 gabapentin 300 mg capsule 800 mg PO TID RF: 0 topiramate [Topamax] 50 mg tablet 25 mg PO BID RF: 0 benzonatate [Tessalon Perles] 100 mg capsule 100 mg PO TID PRN (Reason: cough) Qty: 14 RF: 0 guanfacine 1 mg Tablet 1 mg PO .QHS RF: 0 cephalexin [Keflex] 500 mg capsule 500 mg PO QID Qty: 39 RF: 0 sulfamethoxazole-trimethoprim [Bactrim DS] 800-160 mg tablet 1 tab PO BID Qty: 19 RF: 0 Discharge Instructions Instructions: Abscess (ED) Additional Instructions: Your abscess and cellulitis appears to be improving. Please continue with wound care as previously discussed. You may keep a Band-Aid over this to keep it from rubbing. Encourage water intake. You may continue with Tylenol or ibuprofen if needed for discomfort. Please continue the antibiotics. Please follow-up with primary care next week. If you develop fever/chills, increased pain, spreading of the surrounding redness or other new/worsening symptom please seek care urgently once again. Referrals: Oswaldo Spain, [facility] [Primary Care Provider] - Medical Decision Making Patient is a 43-year-old female presents today with chief complaint of wound check. She reports that she was seen here 3 days ago for an abscess at which time the wound was drained. She subsequently placed on Keflex and Bactrim. Patient does have a history of IV drug use although reports none recently. She states that the drainage has greatly slowed. Her pain has come down substantially. Is reporting only itching currently. She denies any fevers or chills. Is not noting spreading of the surrounding erythema. Has been keeping the wound dressed as was advised by physician. On exam, patient is resting comfortably. The Wound is still open but no drainage is able to be expressed. No area of fluctuance to suggest reaccumulation of fluid. Skin is otherwise soft, it is not warm. No surrounding erythema. Patient does have multiple scars consistent with picking on her legs. I did encourage that she keep the wound covered to help prevent this activity from persisting. I advised that she continue with the antibiotics. Wound is recovered by myself. Advised follow-up with primary care next week. She was given return precautions. All her questions and concerns were addressed and she is in agreement this plan. HPI General Mode of arrival: ambulatory. Date/Time Provider Initiated Documentation: 06/30/19 10:49. Limitations to Documentation: no limitations. Information obtained by: patient and RN notes reviewed. History of Present Illness 43 year old F presents to the emergency department with the chief complaint of Recheck of abscess on the posterior left calf, described as mild (Denies any pain at this time, reports it is itchy), Quality is described as other (Itching), and is localized to the left and lower extremity. Patient reports no radiation. Patient started experiencing this day(s) and it has been now resolved (No drainage, no pain). No relieving factors improve symptom(s), No exacerbating factors reported . Patient notes denies cough, diaphoresis, fever/chills, malaise and weakness. Patient did receive the following treatments prior to arrival, none Related Data Home Medications Medication Instructions Recorded Confirmed trazodone 100 mg PO HS #90 tab-cap 06/26/17 06/30/19 gabapentin 300 mg capsule 800 mg PO TID cap 09/28/18 06/30/19 topiramate 50 mg tablet 25 mg PO BID tab 09/28/18 06/30/19 benzonatate [Tessalon Perles] 100 mg PO TID PRN #14 cap 06/06/19 06/30/19 cephalexin [Keflex] 500 mg PO QID #39 cap 06/27/19 06/30/19 guanfacine 1 mg PO .QHS 06/27/19 06/30/19 sulfamethoxazole-trimethoprim 1 tab PO BID #19 tab 06/27/19 06/30/19 [Bactrim DS] Previous Rx's Medication Instructions Recorded trazodone 100 mg PO HS #90 tab-cap 06/26/17 benzonatate [Tessalon Perles] 100 mg PO TID PRN #14 cap 06/06/19 cephalexin [Keflex] 500 mg PO QID #39 cap 06/27/19 sulfamethoxazole-trimethoprim 1 tab PO BID #19 tab 06/27/19 [Bactrim DS] Allergies Allergy/AdvReac Type Severity Reaction Status Date / Time diphenhydramine HCl AdvReac paradoxical Verified 06/27/19 13:26 [From Benadryl] stimulant General CARMINE: 3 Review of Systems Constitutional Constitutional: Reports as per HPI, Denies chills and Denies fever(s) Musculoskeletal Musculoskeletal: Reports as per HPI Integumentary/Breasts Skin/Breast: Reports as per HPI Neurologic Neurologic: Reports as per HPI, Denies sensory deficit and Denies paresthesias PFSH Medical History Amphetamine abuse, episodic (Acute 11/14/16) Relapse: Adderal fall 2015 until 10/17/16: Isauro Iraheta identified Anxiety Attention deficit hyperactivity disorder (ADHD), combined type (Acute 04/23/17) updating diagnosis from ADHD unspecified; screen 03/2017; h/o prior rx Dr Beckman; counselor Isauro Iraheta, consult Dr Manuel Depression Opiate dependence Polysubstance abuse (Acute) Smoker (Acute 09/16/13) 0.5 PPD, working with Marianne Fernanda Family History Father Alcohol abuse Mother No problems noted. 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 Lost [facility] license. Has 3 kids in foster care. Exam Const General: cooperative, healthy appearing, comfortable, no acute distress and well developed Nutritional Appearance: average body habitus and well nourished Orientation: alert and awake Resp Effort & Inspection: normal respiratory effort, able to speak in complete sentences and no respiratory distress Cardio Rate: regular rate Rhythm: regular rhythm Skin Wounds: wounds noted (1cm circumferential open wound to the posterior left calf) Neuro General: alert and awake Cognition: normal cognition Speech: speech normal Gait: normal gait Sensory Exam: no sensory deficits noted Extrem Left lower extremity: full ROM and no joint enlargement; abnormal to inspection (Skin changes as noted above) and no edema Psych Appearance: grossly normal and well kempt Mental Status: mental status grossly normal Speech and Movement: speech and movement normal
[2019-06-30 10:54] VITALS: BP 117/69; PULSE 63; RESP 16; TEMP 36.3; O2SAT 100
== END 2019-06-30 11:26 | disposition home or self-care (01) ==
PROVIDERS: Emergency Provider Physician Assistant; PCP Nurse Practitioner Family
DX: L02.416 Cutaneous abscess of left lower limb (principal)
CPT/HCPCS: 99282

== ENCOUNTER 2019-10-21 09:18 | Emergency (ER) | payer MEDICAID, SELFPAY ==
--- NOTE | 2019-10-21 09:15 | DI.RAD_ITS ---
EXAM: XR RIBS LT W PA LAT CHEST CLINICAL HISTORY: Chest wall injury, rib pain TECHNIQUE: COMPARISON: CR XR CHEST 2V PA LATERAL from 06/06/2019 FINDINGS: PA and lateral views of the chest and 4 additional views of the ribs were obtained. Heart is not enl arged. The lungs are clear. No pleural effusion. No pneumothorax. No rib fracture identified. IMPRESSION:
[2019-10-21 09:22] VITALS: BP 139/88; PULSE 88; TEMP 36.5; O2SAT 99
--- NOTE | 2019-10-21 09:28 | W.ED.GENAD ---
Discharge Plan Disposition Patient Disposition: HOME Condition: Stable Discharge Details Chief Complaint: Chest/Rib Clinical Impression: Contusion of left chest wall Primary Care Provider: Oswaldo Spain ED Provider: Susan Alford Home Meds and New Rx's Prescriptions: Continued trazodone 100 MG tablet 100 mg PO HS Qty: 90 RF: 0 gabapentin 300 mg capsule 800 mg PO TID RF: 0 topiramate [Topamax] 50 mg tablet 25 mg PO BID RF: 0 guanfacine 1 mg Tablet 1 mg PO .QHS RF: 0 Discharge Instructions Instructions: Contusion in Adults (ED), Chest Wall Pain (ED) Additional Instructions: Follow up with primary care provider in 3-5 days. Return to ED sooner if any worsening or concerns. Increase oral fluids. Please take Tylenol or Ibuprofen with food every 4-6 hours as needed for pain and swelling. Referrals: Oswaldo Spain, [employer] [employer] [Primary Care Provider] - Medical Decision Making X-ray chest rib series ordered, 1 g Tylenol ordered p.o., and test. EXAM: XR RIBS LT W PA LAT CHEST CLINICAL HISTORY: Chest wall injury, rib pain TECHNIQUE: COMPARISON: CR XR CHEST 2V PA LATERAL from 06/06/2019 FINDINGS: PA and lateral views of the chest and 4 additional views of the ribs were obtained. Heart is not enlarged. The lungs are clear. No pleural effusion. No pneumothorax. No rib fracture identified. IMPRESSION: X-rays unchanged from May 2019. Plan is to discharge patient home. Discussed home care and strict return instructions, discussed red flags to return for including increasing shortness of breath, increasing pain, productive cough or fever. Verbalized understanding. HPI General Mode of arrival: ambulatory. Date/Time Provider Initiated Documentation: 10/21/19 09:19. Limitations to Documentation: no limitations. Information obtained by: patient. HPI Narrative: 44-year-old female presents with left-sided anterior rib pain. Patient states that she was wrestling with significant other last night and he accidentally kneeled on her chest. She denies any other injuries no midline C-spine tenderness or L-spine tenderness. No abdominal pain. Pain gets worse with movement and deep breathing. So she does have clear lung sounds bilaterally. Tenderness noted anteriorly over the seventh or eighth rib. There is some swelling noted. Related Data Home Medications Medication Instructions Recorded Confirmed trazodone 100 mg PO HS #90 tab-cap 01/19/18 05/15/20 gabapentin 300 mg capsule 800 mg PO TID cap 09/28/18 10/21/19 topiramate 50 mg tablet 25 mg PO BID tab 09/28/18 10/21/19 guanfacine 1 mg PO .QHS 06/27/19 10/21/19 Previous Rx's Medication Instructions Recorded trazodone 100 mg PO HS #90 tab-cap 06/26/17 Allergies Allergy/AdvReac Type Severity Reaction Status Date / Time diphenhydramine HCl AdvReac paradoxical Verified 10/21/19 09:40 [From Benadryl] stimulant General Stated Complaint: Chest/Rib CARMINE: 3 Review of Systems Narrative: Constitutional: Negative for weight loss, alert and oriented, well groomed, normal body habitus, appears comfortable. HEENT: Denies trauma, headaches, blurry vision, nasal discharge, sore throat, trouble swallowing. Chest: Denies palpitations, irregular rhythm, hypertension. Positive anterior chest wall pain. Respiratory: Denies Shortness of breath, cough, hemoptysis. GI: Denies abdominal pain, nausea, vomiting, diarrhea, constipation. : Denies dysuria, hematuria, flank pain, rectal bleeding. Neuro: Denies dizziness, blurry vision, weakness, syncope, headache or facial numbness. Hematologic: Denies easy bruising, intolerance to heat or cold, hair loss. PFSH Medical History Amphetamine abuse, episodic (Acute 11/14/16) Relapse: Adderal fall 2015 until 10/17/16: Isauro Iraheta identified Anxiety Attention deficit hyperactivity disorder (ADHD), combined type (Acute 04/23/17) updating diagnosis from ADHD unspecified; screen 03/2017; h/o prior rx Dr Beckman; counselor Isauro Iraheta, consult Dr Manuel Depression Opiate dependence Polysubstance abuse (Acute) Smoker (Acute 09/16/13) 0.5 PPD, working with Marianne Michael Surgical History History of dilatation and curettage (Acute) Family History Father Alcohol abuse Mother No problems noted. 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 Lost [facility] license. Has 3 kids in foster care. Exam Narrative Exam Narrative: Constitutional: Alert and oriented x3. Appears stated age. Normal body habitus. Head: Normocephalic, no trauma. Eyes: Pupils PERRLA, Red reflex noted, EOM's intact. Eyelids symmetrical without lesions, discharge, or swelling. ENT: Bilateral TM's WNL, External ear normal to inspection, no mastoid TTP, swelling, or erythema, Nasal turbinates WNL, no nasal discharge. Normal dentition, Posterior pharynx WNL, no exudate. Chest: RRR, Normal S1, S2, distal pulses intact. Tender to palpation left anterior chest wall with mild swelling. Resp: Lungs clear to auscultation bilaterally, no wheezes, rales, or rhonchi. Musculoskeletal: Normal gait, 5/5 strength to all four extremities. Skin: No suspicious rashes or lesions. Capillary refill less than 2 sec. Neurologic: Cranial nerves II-XII intact. Alert and oriented x 3. DTR's intact. Hematologic/Lymphatic: No ecchymosis, no lymphadenopathy. Course Vital Signs Vital signs: Vital Signs Temperature 36.5 C 10/21/19 09:22 Pulse 88 10/21/19 09:22 Blood Pressure 139/88 10/21/19 09:22 Pulse Oximetry 99 10/21/19 09:22 Temperature 36.5 C 10/21/19 09:22 Temperature Source Temporal Artery Scan 10/21/19 09:22 Pulse 88 10/21/19 09:22 Blood Pressure 139/88 10/21/19 09:22 Pulse Oximetry 99 10/21/19 09:22 Oxygen Delivery Method Room Air 10/21/19 09:22 Oxygen Flow Rate 0 10/21/19 09:22
[2019-10-21] MEDS: Acetaminophen 500 MG TAB 1000 MG PO (09:40)
== END 2019-10-21 10:18 | disposition home or self-care (01) ==
PROVIDERS: Emergency Provider Registered Nurse Emergency; PCP Nurse Practitioner Family
DX: S20.212A Contusion of left front wall of thorax, initial encounter (principal); W50.0XXA Accidental hit or strike by another person, initial encounter; Y93.83 Activity, rough housing and horseplay
CPT/HCPCS: 81025; 99284; 71046; 71100

== ENCOUNTER 2019-12-09 01:07 | Outpatient (CLI) | payer MEDICAID, SELFPAY ==
[2019-12-09 10:03] LABS: HCT 30.8 % (36.0-46.0); HGB 10.2 g/dL (12.0-15.5); Mean Corp. HGB Concentration 33.1 g/dL (32.0-36.0); Mean Corpuscular Volume 87.5 fL (80-95); Platelet Count 465 x1000/uL (130-400); RBC 3.52 m/cumm (4.00-5.20); RBC Distribution Width 14.4 % (11.7-14.6); White Blood Cell Count 9.76 k/cumm (4.4-10.8)
[2019-12-09 10:54] LABS: ALT 10 U/L (14-59); AST 15 U/L (15-37); Albumin 4.1 g/dL (3.4-5.0); Alkaline Phosphatase 65 U/L (46-116); Anion Gap 12.7 mmol/L (3-11); BUN 14 mg/dL (7-18); Bilirubin, Total 1.5 mg/dL (0.2-1.0); CO2 23.3 mmol/L (21.0-32.0); CREATININE 0.96 mg/dL (0.55-1.02); Calcium 9.2 mg/dL (8.5-10.1); Chloride 98 mmol/L (98-107); Glucose 96 mg/dL (74-106); Potassium 4.3 mmol/L (3.5-5.1); Sodium 134 mmol/L (136-145); Total Protein 7.1 g/dL (6.4-8.2)
[2019-12-12 11:19] LABS: HBs Antibody, Quant 122.7 mIU/mL (See Note); Hepatitis B Surface Ab Positive (See Note)
[2019-12-12 11:34] LABS: Hepatitis B Surface Ag Negative (Negative)
[2019-12-12 12:07] LABS: Hep B Core Antibody Negative (Negative)
[2019-12-12 12:15] LABS: HIV-1/2 Ag & Ab Screen Negative (Negative)
[2019-12-12 12:37] LABS: Hep A Total Ab w Rflx IgM Negative (Negative)
[2019-12-12 12:41] LABS: Hepatitis C Ab w Rflx HCV PCR Reactive (Negative)
[2019-12-13 08:44] LABS: ALT 9 U/L (7-45); ActiTest Grade A0; ActiTest Interpretation no activity; ActiTest Score 0.02; Alpha-2-Macroglobulin 225 mg/dL (100 - 280); Apoliprotein A1 147 mg/dL (>=140); Bilirubin, Total 1.3 mg/dL (<=1.2); FibroTest Interpretation no fibrosis; FibroTest Score 0.22; FibroTest Stage F0-F1; GGT 11 U/L (5 - 36); Haptoglobin 131 mg/dL (30 - 200)
[2019-12-13 11:30] LABS: HCV RNA Qualitative Undetected (Undetected)
[2019-12-14 04:43] LABS: HCV Genotype Undetected (Undetected)
== END 2019-12-09 01:27 ==
PROVIDERS: PCP Nurse Practitioner Family; Visit Provider Nurse Practitioner Family
DX: B19.20 Unspecified viral hepatitis C without hepatic coma (principal); Z11.4 Encounter for screening for human immunodeficiency virus [HIV]
CPT/HCPCS: 36415; 80053; 81596; 85027; 86704; 86706; 86709; 86803; 87340; 87389; 87522; 87521

== ENCOUNTER 2020-04-03 16:40 | Emergency (ER) | payer MEDICAID, SELFPAY ==
[2020-04-03 16:57] VITALS: BP 146/96; PULSE 95; RESP 17; TEMP 36.5; O2SAT 100
--- NOTE | 2020-04-03 17:15 | DI.RAD_ITS ---
EXAM: XR RIBS LT W PA LAT CHEST CLINICAL HISTORY: fall/pain TECHNIQUE: COMPARISON: CR XR RIBS LT W PA LAT CHEST from 10/21/2019 FINDINGS: PA and lateral chest and 4 additional views of the left ribs were obtained. The heart is not enlarge d and the lungs are clear. No rib fracture identified. No pneumothorax or pleural effusion. IMPRESSION: Negative examination of the chest and left ribs. RADIATION DOSE DELIVERED: Total DLP
--- NOTE | 2020-04-03 17:46 | ED.GENADUL_ITS ---
Discharge Plan Disposition Patient Disposition: HOME Condition: Stable Discharge Details Clinical Impression: Chest wall injury Primary Care Provider: Oswaldo Spain ED Provider: Souleymane Montemayor Home Meds and New Rx's Prescriptions: Continued trazodone 100 MG tablet 100 mg PO HS Qty: 90 RF: 0 gabapentin 300 mg capsule 800 mg PO TID RF: 0 buprenorphine-naloxone [Suboxone] 8-2 mg film RF: 0 Discharge Instructions Instructions: Rib Contusion (ED) Additional Instructions: Patient verbally discharged, could not wait in the ER for discharge instructions Discharge Data Discharge Date/Time-TO BE ENTERED AT DEPARTURE: 04/03/20 19:05 Medical Decision Making 44-year-old female mechanical slip and fall about 1-1/2 hours prior to arrival injuring her left lower ribs. She denies any other injury. She tells me that she cannot stay here very long, she has a phone call this evening with her children, and that an old gentleman drove her here and he does not drive on the dark. I did try to explain to her that the ER was currently in search capacity and I would expedite her care the best of my ability but that the ER was quite busy at the moment. She appears well, nontoxic although she is slightly anxious. No obvious crepitus. No abdominal or back discomfort. Differential likely chest wall contusion, rib fracture, less likely pneumothorax. Will obtain rib series and chest x-ray Patient given 800 p.o. Motrin X-rays of the left ribs with PA chest read by virtual radiology as no displaced rib fractures. I verbally discussed x-ray findings with patient. She stated that she could not wait for any discharge instructions to be printed so she was verbally discharged. Instructed to take [id number] Tylenol and/or Motrin as directed. Cool and/or warm compresses every 2 hours as tolerated. Gentle stretching as tolerated. Encouraged to return to the ER for new or worsening symptoms. Otherwise she would reach out to her primary care provider for prompt outpatient reevaluation. Medical Records Medical records reviewed: Yes I reviewed the patient's medical records. HPI General Mode of arrival: ambulatory . Date/Time Provider Initiated Documentation: 04/03/20 16:41 . Limitations to Documentation: no limitations . Information obtained by: patient . HPI Narrative: 44-year-old female with past medical history that includes anxiety, ADHD, depression, opiate dependence, polysubstance abuse, current smoker, on Suboxone, presents complaining of left- sided lateral chest wall pain. She states about 1.5 hours before arrival she was vacuuming, slipped, and struck the left ribs on a radiator. She states that the pain is moderate, worse with deep breathing or movement. She denies any other injury, striking her head, headache, neck pain, shortness of breath abdominal pain, nausea, vomiting, pain that radiates down her legs. She did not take any medications for her symptoms. She feels as though something is moving around in there. She is specifically concerned about a rib fracture. Related Data Home Medications Medication Instructions Recorded Confirmed trazodone 100 mg PO HS #90 tab-cap 06/26/17 10/21/19 gabapentin 300 mg capsule 800 mg PO TID cap 09/28/18 10/21/19 buprenorphine-naloxone [Suboxone] film 04/03/20 04/03/20 Previous Rx's Medication Instructions Recorded trazodone 100 mg PO HS #90 tab-cap 06/26/17 Allergies Allergy/AdvReac Type Severity Reaction Status Date / Time diphenhydramine HCl AdvReac paradoxical Verified 10/21/19 09:40 [From Benadryl] stimulant General Stated Complaint: Orthopedic CARMINE: 4 Review of Systems Constitutional Constitutional: Denies fatigue, Denies headache(s) and Denies weakness Eyes Eyes: Denies change in vision ENT Ears, Nose, Mouth, and Throat: Denies headache(s) and Denies neck pain Cardiovascular Cardiovascular: Reports chest pain (Chest wall pain) and Denies dyspnea Respiratory Respiratory: Denies cough and Denies dyspnea Gastrointestinal Gastrointestinal: Denies abdominal pain, Denies nausea and Denies vomiting Genitourinary Genitourinary: Denies hematuria Musculoskeletal Musculoskeletal: Denies back pain, Denies neck pain, Denies numbness and Denies tingling Integumentary/Breasts Skin/Breast: Denies rash Neurologic Neurologic: Denies headache(s), Denies numbness, Denies tingling and Denies weakness Endocrine Endocrine: Denies fatigue PFSH Medical History Amphetamine abuse, episodic (11/14/16) Relapse: Adderal fall 2015 until 10/17/16: Isauro Iraheta identified Anxiety Attention deficit hyperactivity disorder (ADHD), combined type (04/23/17) updating diagnosis from ADHD unspecified; screen 03/2017; h/o prior rx Dr Beckman; counselor Isauro Iraheta, consult Dr Manuel Depression Opiate dependence Polysubstance abuse Smoker (09/16/13) 0.5 PPD, working with Marianne Dunnean Surgical History History of dilatation and curettage Family History Father Alcohol abuse Mother No problems noted. 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 Lost [facility] license. Has 3 kids in foster care. Exam Const General: cooperative, healthy appearing, comfortable, no acute distress and anxious Orientation: alert, awake and oriented x3 HENMT Head: normal to inspection, normocephalic and atraumatic Ears: external ears normal, TM's normal bilaterally and EAC's normal General nose exam: external nose normal Face and sinus: normal facial exam Mouth: moist mucous membranes Throat: posterior oropharynx normal Eyes General: appearance normal, both eyes and all related structures Alignment and Position: alignment normal Periorbital: periorbital findings normal Eyelids: eyelids normal Conjunctivae: conjunctivae normal Sclera: sclerae normal Cornea: corneas normal Pupils: PERRL EOM: EOM intact bilaterally Direct ophthalmoscopy: normal light reflex Neck Neck: normal visual inspection, full ROM, trachea midline, supple and nontender Chest Chest: normal inspection of the chest, no crepitus and tenderness Other: Diffuse mild left lateral chest wall discomfort without any bony point tenderness or crepitus. Resp Effort & Inspection: normal respiratory effort and able to speak in complete sentences Auscultation: clear to auscultation bilaterally Cardio Rate: regular rate Rhythm: regular rhythm GI Inspection: normal to inspection Palpation: soft, not firm, no guarding, not rigid and nontender Back/Spine/Pelvis Back: No back tenderness Back/spine/pelvis image: 1. Abrasion Skin General skin exam: no rashes or lesions noted Neuro General: patient alert, patient awake, patient oriented x3, moves all extremities and no focal motor deficits Cranial Nerves: CN's II-XI intact bilaterally Cognition: normal cognition Speech: speech normal Gait: normal gait Motor: muscle tone normal throughout Sensory Exam: no sensory deficits noted Extrem General: normal to inspection, full ROM and capillary refill normal Right lower extremity: normal to inspection, full ROM and normal capillary refill Left lower extremity: normal to inspection, full ROM and normal capillary refill Psych Appearance: grossly normal Mental Status: mental status grossly normal Course Vital Signs Vital signs: Vital Signs Temperature 36.5 C 04/03/20 16:57 Pulse 95 H 04/03/20 16:57 Respiratory Rate 17 04/03/20 16:57 Blood Pressure 146/96 H 04/03/20 16:57 Pulse Oximetry 100 04/03/20 16:57 Temperature 36.5 C 04/03/20 16:57 Temperature Source Temporal Artery Scan 04/03/20 16:57 Pulse 95 H 04/03/20 16:57 Respiratory Rate 17 04/03/20 16:57 Respiratory Effort 04/03/20 17:03 Blood Pressure 146/96 H 04/03/20 16:57 Blood Pressure Position Supine 04/03/20 16:57 Pulse Oximetry 100 04/03/20 16:57 Oxygen Delivery Method Room Air 04/03/20 16:57 Oxygen Flow Rate 0 04/03/20 16:57
--- NOTE | 2020-04-03 18:08 | DI.VRAD_ITS ---
PROCEDURE INFORMATION: Exam: XR Left Ribs with PA Chest, 3 Views Exam date and time: 04/03/2020 5:53 PM Age: 44 years old Clinical indication: Other: Fall/pain TECHNIQUE: Imaging protocol: XR Left ribs 3 views with PA chest. COMPARISON: CR XR RIBS LT W PA LAT CHEST 21/10/2019 09:46 FINDINGS: Lungs: Unremarkable. No consolidation. Pleural space: Unremarkable. No pleural effusion. No pneumothorax. Heart/Mediastinum: Unremarkable. No cardiomegaly. Bones/joints: Unremarkable for patient's age. IMPRESSION: No displaced rib fractures. PROCEDURE INFORMATION: Exam: XR Chest, 2 Views Exam date and time: 04/03/2020 5:53 PM Age: 44 years old Clinical indication: Other: Fall/pain TECHNIQUE: Imaging protocol: XR of the chest Views: 2 views. COMPARISON: CR XR RIBS LT W PA LAT CHEST 21/10/2019 09:46 FINDINGS: Lungs: Unremarkable. No consolidation. Pleural space: Unremarkable. No pleural effusion. No pneumothorax. Heart/Mediastinum: Unremarkable. No cardiomegaly. Bones/joints: Unremarkable for patient's age. IMPRESSION: No acute cardiopulmonary findings. Dictated and Authenticated by: Terrie Escobar MD. Ordering:ENRIQUE Comer MD
[2020-04-03] MEDS: Ibuprofen 800 MG TAB PO (18:38)
== END 2020-04-03 19:05 | disposition home or self-care (01) ==
PROVIDERS: Emergency Provider Physician Assistant; PCP Nurse Practitioner Family
DX: S29.8XXA Other specified injuries of thorax, initial encounter (principal); W01.198A Fall on same level from slipping, tripping and stumbling with subsequent striking against other object, initial encounter
CPT/HCPCS: 99283; 71046; 71100

== ENCOUNTER 2022-09-30 01:38 | Emergency (ER) | payer MEDICAID, SELFPAY ==
[2022-09-30] VITALS (18 sets, daily range): BP systolic 103–140; BP diastolic 68–98; PULSE 70–105; RESP 10–31; TEMP 37.2; O2SAT 97–100
--- NOTE | 2022-09-30 02:00 | DI.CT_ITS ---
Exam(s) CT LOWER EXTREMITY RT W EXAM: CT LOWER EXTREMITY RT W CLINICAL HISTORY: ivdu,R leg swelling cellulitis,eval clot/gas. TECHNIQUE: Imaging Protocol: Axial computed tomography images with coronal and sagittal reformatted images were created and reviewed. CONTRAST MATERIAL: Intravenous: Omnipaque 350. Contrast Volume: 100 ML COMPARISON: No exams were available for comparison FINDINGS: Bones: The osseous structures and articular surfaces are intact. Bony alignment is satisfactory. N o evidence of osteomyelitis. No lytic or sclerotic lesions are identified. Soft Tissues: There is extensive subcutaneous edema throughout the calf and foot. Skin thickening is also present in the lower extremity. No focal fluid collection is seen to suggest an abscess. No s oft tissue gas is present. Vasculature: The popliteal and deep calf veins and the distal visualized femoral vein show no evidenc e of thrombus. The visualized lower extremity arteries are patent. Enhancement: No abnormal enhancement is identified. IMPRESSION: 1. Cellulitis in the right lower extremity without evidence of soft tissue emphysema or abscess. RADIATION DOSE DELIVERED: 334.16mGy.cm Total DLP 334.16mGy.cm Total DLP DATA REPOSITORY: All CT scans at this facility are submitted to the National Radiology Data Registry (NRDR) Dose Index Registry (DIR) with the [employer] (ACR). RADIATION OPTIMIZATION: All CT scans at this facility use at least one of these dose optimization te chniques: automated exposure control; mA and/or kV adjustment per patient size (includes targeted exa ms where dose is matched to clinical indication); or iterative reconstruction.
--- NOTE | 2022-09-30 02:36 | W.ED.GENAD ---
Discharge Plan Disposition Patient Disposition: Against Medical Advice Condition: Serious Discharge Details Clinical Impression: Cellulitis of leg, right, Heart murmur Primary Care Provider: Janeen,Local ED Provider: Aryan Salamanca Home Meds and New Rx's Prescriptions: New clindamycin HCl [Cleocin HCl] 300 mg capsule 600 mg PO Q8H 10 Days Qty: 60 0RF clindamycin HCl [Cleocin HCl] 300 mg capsule 600 mg PO Q8H 10 Days Qty: 60 0RF No Action trazodone 100 MG tablet 100 mg PO HS Qty: 90 0RF Rx Instructions: as directed for mood and sleep gabapentin 300 mg capsule 800 mg PO TID buprenorphine-naloxone [Suboxone] 8-2 mg film Patient Comments: DISSOLVE 1 FILM UNDER THE TONGUE QD Discharge Instructions Instructions: Cellulitis (ED) Additional Instructions: At this time you have evidence of notable cellulitis. This is a skin infection. I am concerned that it is spread into your blood, and is causing an infection potentially in your heart as well. It is against my recommendations to not be hospitalized for treatment of this at this time. However in spite of this you have made your own personal decision to go home instead. This less ideal scenario could lead to potential permanent harm disability or . ThAt being said, a less ideal option than getting hospital treatment would be getting oral outpatient therapy. It is critical that you take the antibiotic as prescribed. It has been sent to your [facility]. If you notice any worsening of your symptoms, or any new symptoms such as vomiting, diarrhea, fever, chills, shortness of breath, chest pain, numbness, weakness, or fainting , please return immediately to the emergency department for reevaluation. Please follow up with your primary care provider as soon as possible for reassessment and reevaluation. As always, it was a pleasure participating in your medical care today. Medical Decision Making 47-year-old female with a past medical history of hepatitis C, IV and illicit drug use, depression, ADHD, who presents today for right lower extremity swelling. Patient regularly uses in the right lower leg. She states that over the last few days it has become notably swollen, red, painful and tender. It is made worse with movement. She did take aspirin without any relief. She denies any fever or chills. She denies any chest pain or shortness of breath. She denies previous history of blood clot. No other complaints at this time. No other modifying factors. She denies any trauma. Exam demonstrates notable edema of the right lower extremity. Multiple old and new eschar lesions are present. Notable redness from the mid calf down. Generalized tenderness throughout but no palpable crepitus. At auscultation of the heart does demonstrate evidence of a systolic murmur with questionable diastolic mild murmur. Concern is certainly for cellulitis, endocarditis, and potential DVT. No ultrasound is currently available. We will start the patient on clindamycin, get labs,, get imaging to rule out gas presence, monitor closely and reassess. 5 AM Laboratory work-up returned and shows evidence of a white count, left shift, no bands. ESR is high at 60, lactate 0.9, electrolytes normal, renal function good. Procalcitonin elevated at 2.8. Patient's symptoms are concerning for notable cellulitis. Especially with the patient's murmur, I am concerned for systemic involvement. Blood cultures have been ordered. CT scan shows evidence of cellulitis with no evidence of gas, or abscess. Recommendations the patient is for admission for IV antibiotics. Patient refused admission, and in fact she was asking to be discharged as soon as possible from the ER. I did discuss with her what she felt were her barriers to staying for extended care in the hospital, and she was unwilling to discuss further. I did discuss with her that we have options of methadone, and Suboxone if needed while she is hospitalized, and the patient still refuses admission. I did discuss with the patient admission/observation to the hospital , and at this time through notable discussion, weighing the risks and benefits, utilizing a shared decision making process, and with a very clear discussion on the benefit of admission and the risks associated with discharge including the unlikely but potential worst case scenario of or lifelong disability the patient has refused admission and would like to go home. Patient is of a appropriate age to make decisions. The patient is of sound mind, appears clinically sober, and has capacity to make decisions by my clinical exam. Respecting the patient's wishes, they will be discharged home. Patient is able to discuss the risks and benefits and alternatives of treatment and refusing treatment. We have tried to involve the patient's family or support group that was present here or by contacting them on the phone. The patient chooses to leave before evaluation and treatment is complete AGAINST MEDICAL ADVICE. In a less ideal scenario patient has agreed to take clindamycin. She was given IV clindamycin 600 mg here. We we will give a prescription for 600 mg twice daily for the next 10 days as well. I did discuss with the patient that she can return anytime for treatment or admission if she feels the desire to come back. I have extensively reviewed the treatment plan and discharge instructions with the patient. I have addressed all patient concerns at this time. The patient was made aware of what symptoms to monitor for that would warrant a return to the emergency department. Discussed the plan with the patient, they demonstrate verbal understanding and agreement with our assessment and plan at this time. The documentation in this chart was dictated using [employer] dictation software. Please excuse any dictation errors. FINDINGS: Bones/joints: No fractures or suspicious osseous lesions. No cortical erosion or periosteal reaction. Soft tissues: There is extensive reticular and coalescent subcutaneous fat stranding and skin thickening throughout the calf and foot consistent with the reported cellulitis. Smaller patchy foci of subcutaneous fat stranding are seen in the distal thigh. There is no organized fluid collection or soft tissue emphysema. Vasculature: The popliteal and deep calf veins and the visualized femoral vein appear free of thrombus. IMPRESSION: Findings consistent with reported cellulitis in the right calf and foot and (to a lesser extent) in the distal thigh. No soft tissue gas or abscess. Thank you for allowing us to participate in the care of your patient. Dictated and Authenticated by: Shivani Valenzuela MD [facility] General Date/Time Provider Initiated Documentation: 09/30/22 01:47. HPI Narrative: 47-year-old female with a past medical history of hepatitis C, IV and illicit drug use, depression, ADHD, who presents today for right lower extremity swelling. Patient regularly uses in the right lower leg. She states that over the last few days it has become notably swollen, red, painful and tender. It is made worse with movement. She did take aspirin without any relief. She denies any fever or chills. She denies any chest pain or shortness of breath. She denies previous history of blood clot. No other complaints at this time. No other modifying factors. She denies any trauma. Related Data Home Medications Medication Instructions Recorded Confirmed trazodone 100 mg tablet 100 mg PO HS #90 tab-caps 06/26/17 10/21/19 gabapentin 300 mg capsule 800 mg PO TID 09/28/18 10/21/19 buprenorphine 8 mg-naloxone 2 mg film 04/03/20 04/03/20 sublingual film (Suboxone) clindamycin HCl 300 mg capsule 600 mg PO Q8H 10 days #60 caps 09/30/22 (Cleocin HCl) clindamycin HCl 300 mg capsule 600 mg PO Q8H 10 days #60 caps 09/30/22 (Cleocin HCl) Previous Rx's Medication Instructions Recorded trazodone 100 mg tablet 100 mg PO HS #90 tab-caps 06/26/17 clindamycin HCl 300 mg capsule 600 mg PO Q8H 10 days #60 caps 09/30/22 (Cleocin HCl) clindamycin HCl 300 mg capsule 600 mg PO Q8H 10 days #60 caps 09/30/22 (Cleocin HCl) Allergies Allergy/AdvReac Type Severity Reaction Status Date / Time diphenhydramine HCl AdvReac paradoxical Verified 10/21/19 09:40 [From Benadryl] stimulant General Stated Complaint: Cellulitis CARMINE: 3 Review of Systems All systems reviewed & are unremarkable except as noted in HPI and below PFSH All Active Problems (Updated 09/30/22 @ 04:28 by Aryan Salamanca DO) Cellulitis of leg, right (Acute) Heart murmur (Acute) Hepatitis C virus infection without hepatic coma (Acute) Foreign body of neck (Acute) Right side Numbness of left hand (Acute) Discharge planning issues (Acute) DVT prophylaxis (Acute) 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) Bilateral leg weakness (Acute) Smoker (Acute 09/16/13) 0.5 PPD, working with Marianne Michael Amphetamine abuse, episodic (Acute 11/14/16) Relapse: Adderal fall 2015 until 10/17/16: Isauro Iraheta identified Attention deficit hyperactivity disorder (ADHD), combined type (Acute 04/23/17) updating diagnosis from ADHD unspecified; screen 03/2017; h/o prior rx Dr [place]; counselor Isauro Iraheta, consult Dr Manuel Anemia (Chronic) Transaminitis (Acute) Neuropathy (Acute) Oral contraception initial prescription (Acute 08/05/11) Opioid dependence on agonist therapy (Acute 06/18/05) Prior dilaudid, heroin, etc.; INDUCTION AT SUBSTANCE TREATMENT 06/2005 ON REFERRAL FROM [facility], COUNSELOR: Isauro Iraheta; MAT team begun 12/2015; problem 11/14/16 (amphetamine use) Opioid dependence, continuous (Acute 06/18/05) INDUCTION AT SUBSTANCE TREATMENT 06/2005 ON REFERRAL FROM [facility], COUNSELLOR: WILLIE Smith [facility]; problematic episode 04/2012 (ritalin misuse) Depressive disorder (Acute 05/22/05) SCREEN ADHD, [facility] RITALIN RX; Denisse Sethi eval 2011 Anxiety disorder (Acute 08/05/11) ?? ADD PIECE: [facility] EVAL 08/2011 Adjustment disorder, unspecified (Acute 03/03/16) Medical History (Updated 09/30/22 @ 04:28 by Aryan Salamanca DO) Anxiety Depression Opiate dependence Polysubstance abuse Surgical History History of dilatation and curettage Family History Father Alcohol abuse Mother No problems noted. Maternal Grandmother Breast cancer Paternal Grandfather Colorectal cancer Maternal Grandfather Larynx cancer Social History Smoking/Tobacco Use Status: Current every day Tobacco Type: cigarettes Smoking risk assessment performed?: Yes Alcohol Intake: former Drug use: Daily Substance use type: marijuana, heroin, amphetamines, sedatives, IV drugs and other Details: wellbutrin Adopted: No Foster care: Yes Household members: significant other Number of Children: 3 current occupation: Former [employer] Pets and animals: Yes Seatbelt use: always Helmet use: Yes Drive intox or ride w/intox bellman driver: No Working smoke detector in home: Yes Fire extinguisher in home: Yes Carbon monox detector in home: Yes Firearms in home: No Do you feel safe at home: Yes Do you feel safe in your relationship?: Yes Victim of physical abuse: No Victim of emotional abuse: No Victim of sexual abuse: No Additional Social history: 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 Lost [employer] license. Has 3 kids in foster care. Exam Narrative Exam Narrative: 1.Const: Well-nourished, Well-developed, appearing stated age 2.Eyes: PERRL, no conjunctival injection, and symmetrical lids. 3.ENT: Atraumatic external nose and ears. Moist MM. Neck: Symmetric, trachea midline, No thyromegaly. 4.CVS: +S1/S2, systolic murmur is auscultated. Peripheral pulses 2+ and equal in all extremities. Brisk capillary refill in all extremities. 5.RESP: Unlabored respiratory effort. Clear to auscultation bilaterally. No wheezes rales or rhonchi 6.GI: Soft, Nontender/Nondistended, No hepatosplenomegaly. No guarding or rebound. 7.MSK: Right lower extremity demonstrates notable swelling throughout compared to the left. Notable +1 to +2 pitting edema. Redness is present from the mid calf down. Multiple lesions of old pockmarks, scars, and active scabs. There are some lesions slightly more proximally where the patient states that she injected most recently. No fluctuant abscess that can be palpated. No active drainage. Mild generalized tenderness throughout. No palpable subcutaneous crepitus. 8.Skin: Warm, Dry. 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 Sensation grossly intact, no focal neurologic deficits. 10.Psych: (AAO) x3. Appropriate mood and affect Course Vital Signs Vital signs: Vital Signs Temperature 37.2 C 09/30/22 01:41 Pulse 70 09/30/22 01:41 Respiratory Rate 18 09/30/22 01:41 Blood Pressure 140/98 H 09/30/22 01:41 Pulse Oximetry 100 09/30/22 01:41 Temperature 37.2 C 09/30/22 01:41 Temperature Source Oral 09/30/22 01:41 Pulse 70 09/30/22 01:41 Respiratory Rate 18 09/30/22 01:41 Respiratory Effort Normal 09/30/22 01:47 Blood Pressure 140/98 H 09/30/22 01:41 Blood Pressure Position Sitting 09/30/22 01:41 Pulse Oximetry 100 09/30/22 01:41 Oxygen Delivery Method Room Air 09/30/22 01:41 Oxygen Flow Rate 0 09/30/22 01:41 Pain Level 7 09/30/22 01:41 Lab/Test Results Lab/Test Results: 09/30/22 01:59 Blood Blood Culture - Pending 09/30/22 01:59 Blood Blood Culture - Pending PAWSS Have you Been Recently Intoxicated or Drunk Within the Last 30 days?: Yes Have you Ever Experienced Previous Episodes of Alcohol Withdrawal?: No Have you ever Experienced Withdrawal Seizures?: No Have you ever Experienced Delirium Tremens(DT)s?: No Have you ever Experienced Blackouts?: No Have you ever Combined Alcohol with other Downers within the last 90 days?: No Have you ever Combined Alcohol with any other Substance of Abuse during the last 90 days?: No Positive Blood Alcohol level on Presentation? [PCS.BAL]: No Evidence of Increased Autonomic Activity (i.e. HR>120, tremor, sweating, agitation, nausea)?: No Result: 1
[2022-09-30 02:39] LABS: Lactate 0.9 mmol/L (0.6-1.4)
[2022-09-30] MEDS: Normal Saline Flush 10 ML SYR IVP (02:44)
[2022-09-30] MEDS: Omnipaque 350 MG/ML 100 ML BTL IJ (02:53)
[2022-09-30] MEDS: Normal Saline - Diluent 50 ML VIAL IJ (02:53)
[2022-09-30 02:54] LABS: Absolute Basophil Count 0.05 10^3/uL (0.0-0.2); Absolute Eosinophil Count 0.15 10^3/uL (0.0-0.7); Absolute Lymphocyte Count 2.75 10^3/uL (1.2-3.4); Absolute Monocyte Count 0.58 10^3/uL (0.1-0.8); Absolute Neutrophil Count 9.15 10^3/uL (1.2-6.7); Basophils % 0.4; Eosinophils % 1.2; HCT 37.4 % (36.0-46.0); HGB 11.7 g/dL (11.2-15.7); Immature Grans % 0.8; Lymphocytes % 21.5; MCH 25.7 pg (27.0-33.0); MCHC 31.3 % (32.0-36.0); MCV 82 fL (80-95); MPV 8.7 fL (8.0-11.0); Monocytes % 4.5; Neutrophils % 71.6; Platelet Count 357 10^3/uL (130-400); RBC 4.55 10^6/uL (3.93-5.22); RDW 15.6 % (11.7-14.6); RDW-SD 47.1 fL; WBC 12.78 10^3/uL (4.4-10.8)
[2022-09-30 02:57] LABS: ALT 17 U/L (14-59); AST 21 U/L (15-37); Albumin 3.2 g/dL (3.4-5.0); Alkaline Phosphatase 108 U/L (46-116); Anion Gap 7.3 mmol/L (3-11); BUN 22 mg/dL (7-18); Bilirubin, Total 0.9 mg/dL (0.2-1.0); C-Reactive Protein 13.12 mg/dL (0.0-0.3); CO2 27.7 mmol/L (21.0-32.0); Calcium 8.7 mg/dL (8.5-10.1); Chloride 98 mmol/L (98-107); ESR 60 mm/hr (0-20); Glucose 120 mg/dL (74-106); Potassium 3.5 mmol/L (3.5-5.1); Sodium 133 mmol/L (136-145); Total Protein 7.7 g/dL (6.4-8.2)
[2022-09-30 03:15] LABS: Procalcitonin 2.8 ng/mL
[2022-09-30] MEDS: CLINDAMYCIN 600 MG/50 ML BAG 100 MG IVPB (04:10)
--- NOTE | 2022-09-30 07:15 | DI.VRAD_ITS ---
PROCEDURE INFORMATION: Exam: CT Right Lower Extremity With Contrast Exam date and time: 09/30/2022 2:56 AM Age: 47 years old Clinical indication: Foot and lower leg and thigh; Right; Patient HX: Ivdu, R leg swelling \T\ cellulitis, eval clot/gas; Additional info: R leg from mid thigh down per provider TECHNIQUE: Imaging protocol: CT of the right lower extremity with intravenous contrast was performed. Contrast material: OMNIPAQUE 350; Contrast volume: 100 ml; Contrast route: INTRAVENOUS (IV); COMPARISON: No relevant prior studies available. FINDINGS: Bones/joints: No fractures or suspicious osseous lesions. No cortical erosion or periosteal reaction. Soft tissues: There is extensive reticular and coalescent subcutaneous fat stranding and skin thickening throughout the calf and foot consistent with the reported cellulitis. Smaller patchy foci of subcutaneous fat stranding are seen in the distal thigh. There is no organized fluid collection or soft tissue emphysema. Vasculature: The popliteal and deep calf veins and the visualized femoral vein appear free of thrombus. IMPRESSION: Findings consistent with reported cellulitis in the right calf and foot and (to a lesser extent) in the distal thigh. No soft tissue gas or abscess. Dictated and Authenticated by: Shivani Valenzuela MD. Ordering:BUD Baeza MD
== END 2022-09-30 05:01 | disposition left against medical advice (07) ==
PROVIDERS: Emergency Provider Student in an Organized Health Care Education/Training Program
DX: L03.115 Cellulitis of right lower limb (principal); R01.1 Cardiac murmur, unspecified; R79.89 Other specified abnormal findings of blood chemistry
CPT/HCPCS: 36415; 80053; 81025; 84145; 85652; 87040; 96365; 99285; 73701; 83605; 85025; 86140; 99284; J3490

== ENCOUNTER 2022-10-02 05:07 | Inpatient (IN) | payer MEDICAID, SELFPAY ==
[2022-10-02] VITALS (30 sets, daily range): BP systolic 93–141; BP diastolic 50–80; PULSE 55–114; RESP 12–22; TEMP 35.8–37.3; O2SAT 94–100
--- NOTE | 2022-10-02 | DI.US_ITS ---
APPROVED REPORT EXAM: Comprehensive 2D, Doppler, and color-flow Echocardiogram Patient Location: In-Patient Room/Bed: [address]rug[address] Operator Helper: Svetlana Esquivel RDCS (AE) Indications: Suspected bacteremia, IVD user, Heart murmur Other Information Study Quality: Adequate. Technically limited study due to inability to position patient exam done bed side, patient unresponsive. Conclusion Normal left ventricular wall thickness and chamber size. Ejection fraction is 60%. Wall motion is n ormal Normal right ventricular size and systolic function Both atria are normal in size There is no structural or hemodynamically significant valvular disease Estimated right ventricular systolic pressure is 24 mmHg No valvular vegetations were seen Wall motion Left Ventricle The left ventricle is normal size. The left ventricular systolic function is normal. The left ventric ular ejection fraction is within the normal range. There is normal left ventricular wall thickness. T here is normal LV segmental wall motion. There is no ventricular septal defect visualized. LVEF is 60 %. Right Ventricle The right ventricle is normal size. The right ventricular systolic function is normal. The RVSP is 23 .8_ mmHg. Atria The left atrium size is normal. The right atrium size is normal. The interatrial septum is intact wit h no evidence for an atrial septal defect. Atrial septal aneurysm is present. Aortic Valve The aortic valve is normal in structure. Aortic valve is trileaflet. There is no aortic valvular sten osis. Trivial aortic regurgitation. There is no aortic valvular vegetation. Mitral Valve The mitral valve is normal in structure. No evidence of mitral valve stenosis. Trace mitral regurgita tion. There is no evidence of mitral valve vegetations. Tricuspid Valve The tricuspid valve is normal in structure. Mild tricuspid regurgitation. There is no tricuspid valve vegetations. Pulmonic Valve The pulmonary valve is normal in structure. There is no pulmonic valvular stenosis. Trace pulmonic re gurgitation. There is no pulmonic valve vegetations. Great Vessels The aortic root is normal in size. Ascending aorta is not well visualized. IVC is normal in size and collapses >50% with inspiration. Pericardium There is no pericardial effusion. 2D Dimensions IVSD d PLAX 0.75 cm F: 0.6-1.0 LV Vol A2C d MOD 123.6 mL LVPW d PLAX 0.75 cm F: 0.6 - 1.0 LV Vol A4C d MOD 107.3 mL LVID d PLAX 4.42 cm F: 3.8 - 5.2 LA vol/ BSA A2C s A-L 21.2 mL/m2 LVDs 2.85 cm F: 2.2 - 3.5 LA vol/ BSA A4C s A-L 18.7 mL/m2 Ao Root d 3.19 cm F: 2.7 - 3.3 LA Vol/ BSA Biplane s A-L 20.6 mL/m2 RA Area A4C 13.83 cm2 LA Area A4C s MOD 14.36 cm2 RA Vol/ BSA A4C s A-L 21.3 mL/m2 LA Area A2C s MOD 14.78 cm2 LV EF Teichholz 64.5 % LV EF A4C MOD 60.3 % LVEF (Devi's) 60.63 % F: 54 - 74 LV EF A2C MOD 60.2 % LV Volume 94.47 mL F: 46 - 106 LV EF Biplane MOD 60.6 % LV Volume Index 57.25 mL/m2 F: 29 - 61 SV 71.28 mL LV Vol Biplane MOD 117.6 mL SV Index 43.27 mL/m2 FS 35.00 % M-Mode TAPSE 2.90 cm (M/F) >1.7 LV Diastology MV E' medial 0.100 (>0.07 m/s) E/A Ratio 1.3 LV E/e MED 6.40 (<14) MV E Vmax 0.64 (0.4-1.3 m/s) MV E' lateral 0.155 (>0.1 m/s) MV A Vmax 0.50 (0.4-1.3 m/s) LV E/e LAT 4.10 (<14) MV E/A Ratio 1.19 MV E/E' medial 6.41 MV E/E' lateral 4.11 Aortic Valve LVOT Area 2.91 cm2 AoV Area Vmax 2.82 cm2 LVOT Vmax 1.54 m/s AoV Area/ BSA (Vmax) 1.71 cm2/m2 LVOT Mean Ankit. 0.99 m/s NA Mean Ankit. 2.96 cm2 LVOT Peak Grad 9.5 mmHg NA Mean Ankit. Index 1.80 cm2/m2 LVOT Mean Grad 4.6 mmHg LVOT VTI 0.285 m LVOT Diam s 1.90 cm AoV Vmax 1.59 m/s Velocity Ratio 0.97 AoV Mean Ankit. 0.97 m/s AoV Peak Grad 10.2 mmHg LVOT SV 82.98 mL AoV Mean Grad 4.6 mmHg AoV VTI 0.275 m AoV Area VTI 3.02 cm2 AoV Area/ BSA (VTI) 1.83 cm/m2 Mitral Valve MV DT 222 (160-240 msec) MV PHT 64 msec MV Area PHT 3.42 cm2 MV VTI 0.318 m MV Area VTI 2.61 (4.0-6.0 cm2) Pulmonary Valve PV Vmax 1.33 (0.5-1.5 m/s) RVOT Peak Gr. 1.72 mmHg PV Peak Grad 7.1 mmHg RVOT Mean Gr. 0.90 mmHg PV Mean Grad 3.2 mmHg RVOT VTI 0.111 m PV VTI 0.244 m RVOT Vmax 0.66 m/s Tricuspid Valve TR Peak Grad 20.7 mmHg TR Vmax 2.28 m/s RA Pressure 3.00 mmHg RVSP (TR) 23.8 mmHg
--- NOTE | 2022-10-02 | DI.US_ITS ---
Exam(s) US SOFT TISSUE EXTREMITY EXAM: US SOFT TISSUE EXTREMITY CLINICAL HISTORY: Looking for abscess - IVDA. TECHNIQUE: Ultrasound was performed using standard protocol. COMPARISON: No exams were available for comparison FINDINGS: Sonographic assessment utilizing grayscale and color Doppler imaging was performed and targeted to th e area of clinical concern. The right lower extremity was evaluated sonographically. There is extensive edema seen throughout th e right lower extremity in the foot. On the dorsal aspect of the foot, there is fluid surrounding a tendon present. This would be consistent with a tenosynovitis. No focal fluid collection is seen in the right lower extremities suggest abscess. IMPRESSION: 1. No evidence of an abscess in the right lower extremity. 2. Extensive edema in the right lower extremity. 3. Findings suggestive of tenosynovitis of the tendon along the dorsum of the foot. DATA REPOSITORY:
--- NOTE | 2022-10-02 05:15 | DI.RAD_ITS ---
Exam(s) XR TIB/FIB RT EXAM: XR TIB/FIB RT CLINICAL HISTORY: cellulitis, eval for gas. TECHNIQUE: 2D digital imaging was performed of the right tibia and fibula. Three images were obtaine d. AP and lateral views were obtained. COMPARISON: No exams were available for comparison FINDINGS: BONES: No acute fracture is present. No bony destructive lesion is seen. Visualized portion of knee a nd ankle joints are unremarkable. SOFT TISSUE: There is subcutaneous edema throughout the leg and into the ankle. No radiopaque foreig n body or soft tissue gas is identified. IMPRESSION: Soft tissue swelling of the lower extremity consistent with cellulitis. No soft tissue gas. DATA REPOSITORY: RADIATION DOSE DELIVERED:
--- NOTE | 2022-10-02 05:24 | ED.GENADUL_ITS ---
Discharge Plan Disposition Patient Disposition: Admit to [facility] Condition: Improving Discharge Details Chief Complaint: Cellulitis Clinical Impression: Cellulitis of right leg, IVDU (intravenous drug user) Primary Care Provider: [facility] Provider: Aryan Salamanca Home Meds and New Rx's Prescriptions: No Action trazodone 100 MG tablet 100 mg PO HS Qty: 90 0RF Rx Instructions: as directed for mood and sleep gabapentin 300 mg capsule 800 mg PO TID buprenorphine-naloxone [Suboxone] 8-2 mg film Patient Comments: DISSOLVE 1 FILM UNDER THE TONGUE QD clindamycin HCl [Cleocin HCl] 300 mg capsule 600 mg PO Q8H 10 Days Qty: 60 0RF clindamycin HCl [Cleocin HCl] 300 mg capsule 600 mg PO Q8H 10 Days Qty: 60 0RF Medical Decision Making This is a 47-year-old female with a past medical history of hepatitis C, IVdrug use, depression, ADHD, injections into her right lower extremity as the site for her IV drug use, who presents for infected right lower extremity. Patient was here 3 days ago, at that time I saw and assessed her. She had notable cellulitis on the mid tib-fib region extending downwards. Laboratory work-up demonstrated concerning evidence of infection, ESR was elevated, CT scan of the lower extremity showed no evidence of gas or foreign body. Patient also demonstrated a murmur which was very concerning to me for potential endocarditis. At that time she was not willing to wait for an extended antibiotic course or admission. She did accept a single dose of IV clindamycin and then immediately left upon its completion. She left against recommendations and AGAINST MEDICAL ADVICE. I assured her that if she returned at any point I would be happy to reassess and admit her if she was willing. Tonight she comes back and has worsening swelling that is now traveling up to the knee. She has had intermittent fevers, she did not take any of the antibiotics that were prescribed or given to her. She denies any other complaints at this time. No other modifying factors. ExaM shows worsening redness and worsening swelling compared to prior exam few days ago. Clearly I am still concerned for severe cellulitis. Neck fascia unlikely but we will get x-rays to confirm presence or absence of gas. Endocarditis is still on the differential. Blood cultures did return negative after 48 hours which is very reassuring though. We will start broad-spectrum antibiotics of vancomycin and Zosyn and clindamycin. Patient states that she is willing to be admitted. Last illicit drug use was about an hour and a half ago. We will start with Toradol and Ofirmev for treatment of pain, and escalate as needed or indicated. Plan is for admission. Discussed the case with the hospitalist Dr. Perla and Dr. Roque. They agree with the assessment and plan and plan for admission. I have extensively reviewed the treatment plan with the patient. I have addressed all patient concerns at this time. I have also discussed the plan with the admitting physician and they agree with the current assessment and plan and have agreed to assume responsibility for the patient. All parties demonstrate verbal understa nding and agreement with our assessment and plan at this time. The documentation in this chart was dictated using [employer] dictation software. Please excuse any dictation errors. FINDINGS: Bones/joints: No acute or suspicious osseous abnormalities. Soft tissues: Subcutaneous edema of the calf. No radiopaque foreign body. Marked soft tissue swelling of the ankle. No soft tissue gas noted. IMPRESSION: Soft tissue swelling. No soft tissue gas noted. Thank you for allowing us to participate in the care of your patient. Dictated and Authenticated by: Suellen Victor MD 10/02/2022 7:26 AM Eastern Time ([place] & [place]) HPI General Date/Time Provider Initiated Documentation: 10/02/22 05:08 . HPI Narrative: This is a 47-year-old female with a past medical history of hepatitis C, IVdrug use, depression, ADHD, injections into her right lower extremity as the site for her IV drug use, who presents for infected right lower extremity. Patient was here 3 days ago, at that time I saw and assessed her. She had notable cellulitis on the mid tib-fib region extending downwards. Laboratory work-up demonstrated concerning evidence of infection, ESR was elevated, CT scan of the lower extremity showed no evidence of gas or foreign body. Patient also demonstrated a murmur which was very concerning to me for potential endocarditis. At that time she was not willing to wait for an extended antibiotic course or admission. She did accept a single dose of IV clindamycin and then immediately left upon its completion. She left against recommendations and AGAINST MEDICAL ADVICE. I assured her that if she returned at any point I would be happy to reassess and admit her if she was willing. Tonight she comes back and has worsening swelling that is now traveling up to the knee. She has had intermittent fevers, she did not take any of the antibiotics that were prescribed or given to her. She denies any other complaints at this time. No other modifying factors. Related Data Home Medications Medication Instructions Recorded Confirmed trazodone 100 mg tablet 100 mg PO HS #90 tab-caps 06/26/17 10/21/19 gabapentin 300 mg capsule 800 mg PO TID 09/28/18 10/21/19 buprenorphine 8 mg-naloxone 2 mg film 04/03/20 04/03/20 sublingual film (Suboxone) clindamycin HCl 300 mg capsule 600 mg PO Q8H 10 days #60 caps 09/30/22 (Cleocin HCl) clindamycin HCl 300 mg capsule 600 mg PO Q8H 10 days #60 caps 09/30/22 (Cleocin HCl) Previous Rx's Medication Instructions Recorded trazodone 100 mg tablet 100 mg PO HS #90 tab-caps 06/26/17 clindamycin HCl 300 mg capsule 600 mg PO Q8H 10 days #60 caps 09/30/22 (Cleocin HCl) clindamycin HCl 300 mg capsule 600 mg PO Q8H 10 days #60 caps 09/30/22 (Cleocin HCl) Allergies Allergy/AdvReac Type Severity Reaction Status Date / Time diphenhydramine HCl AdvReac paradoxical Verified 10/21/19 09:40 [From Benadryl] stimulant General Stated Complaint: Cellulitis CARMINE: 3 Review of Systems All systems reviewed & are unremarkable except as noted in HPI and below PFSH All Active Problems (Updated 10/02/22 @ 07:38 by Aryan Salamanca DO) Cellulitis of leg, right (Acute) Heart murmur (Acute) Cellulitis of right leg (Acute) IVDU (intravenous drug user) (Acute) Hepatitis C virus infection without hepatic coma (Acute) Foreign body of neck (Acute) Right side Numbness of left hand (Acute) Discharge planning issues (Acute) DVT prophylaxis (Acute) 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) Bilateral leg weakness (Acute) Smoker (Acute 09/16/13) 0.5 PPD, working with Marianne Fernanda Amphetamine abuse, episodic (Acute 11/14/16) Relapse: Adderal fall 2015 until 10/17/16: Isauro Iraheta identified Attention deficit hyperactivity disorder (ADHD), combined type (Acute 04/23/17) updating diagnosis from ADHD unspecified; screen 03/2017; h/o prior rx Dr [place]; counselor Isauro Iraheta, consult Dr Manuel Anemia (Chronic) Transaminitis (Acute) Neuropathy (Acute) Oral contraception initial prescription (Acute 08/05/11) Opioid dependence on agonist therapy (Acute 06/18/05) Prior dilaudid, heroin, etc.; INDUCTION AT SUBSTANCE TREATMENT 06/2005 ON REFERRAL FROM [facility], COUNSELOR: Isauro Iraheta; MAT team begun 12/2015; problem 11/14/16 (amphetamine use) Opioid dependence, continuous (Acute 06/18/05) INDUCTION AT SUBSTANCE TREATMENT 06/2005 ON REFERRAL FROM [facility], COUNSELLOR: WILLIE Smith [facility]; problematic episode 04/2012 (ritalin misuse) Depressive disorder (Acute 05/22/05) SCREEN ADHD, DR [place] [facility] RITALIN RX; Denisse rousseau 2011 Anxiety disorder (Acute 08/05/11) ?? ADD PIECE: [facility] EVAL 08/2011 Adjustment disorder, unspecified (Acute 03/03/16) Medical History (Updated 10/02/22 @ 07:38 by Aryan Salamanca DO) Anxiety Depression Opiate dependence Polysubstance abuse Surgical History History of dilatation and curettage Family History Father Alcohol abuse Mother No problems noted. 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 Has 3 kids in foster care. Exam Narrative Exam Narrative: 1.Const: Well-nourished, Well-developed, appearing stated age 2.Eyes: PERRL, no conjunctival injection, and symmetrical lids. 3.ENT: Atraumatic external nose and ears. Moist MM. Neck: Symmetric, trachea midline, No thyromegaly. 4.CVS: +S1/S2, notable systolic mild diastolic murmur noted.. Peripheral pulses 2+ and equal in all extremities. Brisk capillary refill in all extremities. 5.RESP: Unlabored respiratory effort. Clear to auscultation bilaterally. No wheezes rales or rhonchi 6.GI: Soft, Nontender/Nondistended, No hepatosplenomegaly. No guarding or rebound. 7.MSK: Normocephalic/Atraumatic, right lower extremity is notably edematous, extending all the way up to the knee. Tenderness throughout. No crepitus. Redness warmth and cellulitis present circumferentially from the foot up towards the knee. 8.Skin: Warm, No clear evidence of Janeway lesions or Osler nodes. Please see musculoskeletal 9.Neuro: ophthalmic tech II-XII grossly intact. Sensation grossly intact, no focal neurologic deficits. 10.Psych: (AAO) x3. Appropriate mood and affect Course Vital Signs Vital signs: Vital Signs Temperature 37.3 C 10/02/22 05:15 Pulse 97 H 10/02/22 05:15 Respiratory Rate 19 10/02/22 05:15 Blood Pressure 141/75 H 10/02/22 05:15 Pulse Oximetry 99 10/02/22 05:15 Temperature 37.3 C 10/02/22 05:15 Temperature Source Oral 10/02/22 05:15 Pulse 97 H 10/02/22 05:15 Respiratory Rate 19 10/02/22 05:15 Respiratory Effort Normal 10/02/22 05:20 Blood Pressure 141/75 H 10/02/22 05:15 Blood Pressure Position Supine 10/02/22 05:15 Pulse Oximetry 99 10/02/22 05:15 Oxygen Delivery Method Room Air 10/02/22 05:15 Oxygen Flow Rate 0 10/02/22 05:15 Pain Level 7 10/02/22 05:15 Lab/Test Results Lab/Test Results: 10/02/22 05:20 Blood Blood Culture - Pending 10/02/22 05:20 Blood Blood Culture - Pending
[2022-10-02 05:53] LABS: Lactate 0.8 mmol/L (0.6-1.4)
[2022-10-02 05:58] LABS: Abs Immature Grans 0.13 10^3/uL (0.0-0.06); Absolute Basophil Count 0.07 10^3/uL (0.0-0.2); Absolute Lymphocyte Count 3.03 10^3/uL (1.2-3.4); Absolute Monocyte Count 0.78 10^3/uL (0.1-0.8); Basophils % 0.5; Eosinophils % 1.8; HCT 36.9 % (36.0-46.0); HGB 11.9 g/dL (11.2-15.7); Immature Grans % 0.9; Lymphocytes % 21.3; MCH 26.6 pg (27.0-33.0); MCHC 32.2 % (32.0-36.0); MCV 82 fL (80-95); MPV 8.7 fL (8.0-11.0); Monocytes % 5.5; Platelet Count 472 10^3/uL (130-400); RBC 4.48 10^6/uL (3.93-5.22); RDW 15.4 % (11.7-14.6); RDW-SD 46.6 fL; WBC 14.24 10^3/uL (4.4-10.8)
[2022-10-02 06:01] LABS: Absolute Eosinophil Count 0.26 10^3/uL (0.0-0.7); Absolute Neutrophil Count 9.97 10^3/uL (1.2-6.7)
[2022-10-02] MEDS: Ketorolac 30 MG/ML VIAL IVP (06:04)
[2022-10-02] MEDS: ACETAMINOPHEN 1,000 MG/100 ML BTL 400 MG IVPB (06:05)
[2022-10-02] MEDS: Normal Saline 1,000 ML 1000 ML IV (06:05)
[2022-10-02 06:10] LABS: COVID-19 PCR Negative (Negative); Influenza A PCR Negative (Negative); Influenza B PCR Negative (Negative); RSV PCR Negative (Negative)
[2022-10-02 06:13] LABS: ALT 19 U/L (14-59); AST 16 U/L (15-37); Albumin 3.2 g/dL (3.4-5.0); Alkaline Phosphatase 116 U/L (46-116); Anion Gap 5.6 mmol/L (3-11); BUN 14 mg/dL (7-18); Bilirubin, Total 0.8 mg/dL (0.2-1.0); CO2 30.4 mmol/L (21.0-32.0); CREATININE 0.8 mg/dL (0.55-1.02); Chloride 97 mmol/L (98-107); Estimated GFR 92.54 (mL/min/1.73m2); Glucose 110 mg/dL (74-106); Potassium 3.9 mmol/L (3.5-5.1); Sodium 133 mmol/L (136-145); Total Protein 8.3 g/dL (6.4-8.2)
[2022-10-02 06:15] LABS: Source Nasopharynx
[2022-10-02 06:31] LABS: Procalcitonin 0.6 ng/mL
[2022-10-02] MEDS: PIPERACILLIN/TAZO 4.5 GM in Normal Saline 100 ML IVPB (07:01)
[2022-10-02] MEDS: CLINDAMYCIN 600 MG/50 ML BAG 100 MG IVPB (07:02)
--- NOTE | 2022-10-02 07:27 | DI.VRAD_ITS ---
PROCEDURE INFORMATION: Exam: XR Right Tibia and Fibula Exam date and time: 10/02/2022 5:54 AM Age: 47 years old Clinical indication: Cellulitis; Lower leg; Right; Additional info: Cellulitis, eval for gas TECHNIQUE: Imaging protocol: Radiologic exam of the right tibia and fibula. Views: 2 views. COMPARISON: CT LOWER EXTREMITY RT W 09/30/2022 2:56 AM FINDINGS: Bones/joints: No acute or suspicious osseous abnormalities. Soft tissues: Subcutaneous edema of the calf. No radiopaque foreign body. Marked soft tissue swelling of the ankle. No soft tissue gas noted. IMPRESSION: Soft tissue swelling. No soft tissue gas noted. Dictated and Authenticated by: Suellen Victor MD. Ordering:BUD Baeza MD
--- NOTE | 2022-10-02 07:41 | W.PM.HP.N ---
Date of service: 10/02/22 Time of Service: 07:42 Assessment and Plan Assessment and plan (1) Cellulitis of leg, right: Status: Acute Assessment and plan: Continue vancomcyin/zosyn initiated in the ED. Will hold off of clindamycin. Obtain CT RLE. Obtain echo. Await blood cultures, trend inflammatory markers. (2) IVDU (intravenous drug user): Status: Acute Assessment and plan: Polysubstance abuse. The patient requests methadone which I cannot provide. I offered suboxone instead, but the patient is not willing to try it. I have written for prn clonidine, hydroxyzine, zofran, ativan, imodium. Check HIV. (3) Heart murmur: Status: Acute Assessment and plan: I do not appreciate this on exam, but it is listed in her hx. Obtain an echocardiogram. (4) Hepatitis C virus infection without hepatic coma: Status: Chronic Assessment and plan: The patient states that she was undetectable in the past. She has never received treatment. Will obtain hepatitis B serologies as well as HIV. The patient consents. (5) DVT prophylaxis: Status: Acute Assessment and plan: SC enoxaparin (6) Discharge planning issues: Status: Acute Assessment and plan: Full code I suspect the patient will leave AMA, unfortunately. She was advised of risks of and loss of her leg should she decide to leave. History of Present Illness History of Present Illness Chief Complaint: RLE redness and pain Narrative: Ms Bass is a 47 year old female with PMHx of IVD use who left our ER AMA on 09/30/22 after being evaluated there for RLE cellulitis (and not picking up her prescription for clindamycin), who returned to the ER this morning with worsening RLE erythema, swelling, and pain. She says the symptoms have been going on for a few days. While she has had chills, she is not sure they are related to the leg because I am a junkie and you never know if it's the dope. She continues to use IVD in her leg. She states that she uses whatever she can get her hands on: fentanyl, heroin, smokes crack and pot (and cigarettes). She also admits to using pills. She is interested in being on methadone while here which she is not on as outpatient. We discussed how we typically do not initiate methadone at our facility for treatment of substance disorder. She is adamant she does not want suboxone. She is not sharing me why. She states that when she starts to feel the symptoms of withdrawal she will leave, use IVD, and then come back. I discussed with her how that would be strongly against medical advice, that we would be happy to provide her symptomatic treatments for withdrawal, and that she could and/or lose her leg unless she stays and get her infection treated. She verbalized understanding but stated Do you think I care? I am a junkie! She has no interest in quitting at this time. She has indicated that she is staying with her friend. XR of her RLE as well as POCUS done by the ER provider Dr Salamanca revealed no gas. The patient is willing to stay for now. She was initiated on vancomcyin, zosyn, clindamycin, and a hospitalist admission was requested. 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) Bilateral leg weakness (Acute) Smoker (Acute 09/16/13) 0.5 PPD, working with Marianne Michael Amphetamine abuse, episodic (Acute 11/14/16) Relapse: Adderal fall 2015 until 10/17/16: Isauro Iraheta identified Attention deficit hyperactivity disorder (ADHD), combined type (Acute 04/23/17) updating diagnosis from ADHD unspecified; screen 03/2017; h/o prior rx Dr [place]; counselor Isauro Iraheta, consult Dr Manuel Anemia (Chronic) Transaminitis (Acute) Neuropathy (Acute) Oral contraception initial prescription (Acute 08/05/11) Opioid dependence on agonist therapy (Acute 06/18/05) Prior dilaudid, heroin, etc.; INDUCTION AT SUBSTANCE TREATMENT 06/2005 ON REFERRAL FROM [facility], COUNSELOR: Isauro Iraheta; MAT team begun 12/2015; problem 6/9/17 (amphetamine use) Opioid dependence, continuous (Acute 06/18/05) INDUCTION AT SUBSTANCE TREATMENT 06/2005 ON REFERRAL FROM [facility], COUNSELLOR: WILLIE Smith [facility]; problematic episode 04/2012 (ritalin misuse) Depressive disorder (Acute 05/22/05) SCREEN ADHD, DR [place] [facility] RITALIN RX; Denisse [email or web address] Anxiety disorder (Acute 08/05/11) ?? ADD PIECE: [facility] EVAL 08/2011 Adjustment disorder, unspecified (Acute 03/03/16) Medical History (Updated 10/02/22 @ 09:16 by Estelita Perla MD) Anxiety Depression Opiate dependence Polysubstance abuse Surgical History History of dilatation and curettage Family History (Updated 10/02/22 @ 09:05 by Estelita Perla MD) Father Alcohol abuse Mother No problems noted. Maternal Grandmother Breast cancer Paternal Grandfather Colorectal cancer Maternal Grandfather Larynx cancer Social History Smoking/Tobacco Use Status: Current every day Tobacco Type: cigarettes Smoking risk assessment performed?: Yes Alcohol Intake: former Drug use: Daily Substance use type: marijuana, heroin, amphetamines, sedatives, IV drugs and other Details: wellbutrin Adopted: No Foster care: Yes Household members: significant other Number of Children: 3 current occupation: Former 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 Lost [employer] [facility] license. Has 3 kids in foster care. Meds Allergies and Home Medications Allergies Allergy/AdvReac Type Severity Reaction Status Date / Time diphenhydramine HCl AdvReac paradoxical Verified 10/02/22 08:02 [From Benadryl] stimulant Exam Narrative Exam Narrative: General: Unkempt-appearing female who is somnolent, restless, and inattentive, A&Ox3 Neurological: A&Ox3, no focal deficits Psychiatric: Inattentive, distracted, not easy to engage Skin: BLEs with evidence of skin popping. RLE erythema to about the level of the knee, not involving the knee. No erythema LLE HEENT: Atraumatic, normocephalic, EOMI, MMM, no lymphadenopathy, goiter or JVD Cardiovascular: RRR, no m/r/g Lungs: CTAB Gastrointestinal: soft, nontender, nondistended Genitourinary: deferred Extremities: BLE edema, R>L, RLE erythema to knee; multiple circular healed scars BLEs. Results Imaging Additional studies: XR R tib/fib: Soft tissue swelling. No soft tissue gas noted. Labs 10/02/22 05:42 10/02/22 05:42 Labs: Laboratory Results - last 24 hr 10/02/22 10/02/22 10/02/22 05:29 05:42 05:42 WBC RBC Hgb Hct MCV MCH MCHC RDW Plt Count MPV Immature Gran % Neutrophils % Lymphocytes % Monocytes % Eosinophils % Basophils % Nucleated RBC % Absolute Neutrophils Absolute Lymphocytes Absolute Monocytes Absolute Eosinophils Absolute Basophils VBG Lactate 0.8 Sodium 133 L Potassium 3.9 Chloride 97 L Carbon Dioxide 30.4 Anion Gap 5.6 BUN 14 Creatinine 0.8 Est GFR (CKD-EPI 2020) 92.54 Glucose 110 H Calcium 9.0 Total Bilirubin 0.8 AST 16 ALT 19 Alkaline Phosphatase 116 Total Protein 8.3 H Albumin 3.2 L Procalcitonin COVID-19 Source Nasopharynx SARS-CoV-2 (PCR) Negative Influenza Type A (PCR) Negative Influenza Type B (PCR) Negative RSV (PCR) Negative 10/02/22 10/02/22 05:42 05:42 WBC 14.24 H RBC 4.48 Hgb 11.9 Hct 36.9 MCV 82 MCH 26.6 L MCHC 32.2 RDW 15.4 H Plt Count 472 H MPV 8.7 Immature Gran % 0.9 Neutrophils % 70.0 Lymphocytes % 21.3 Monocytes % 5.5 Eosinophils % 1.8 Basophils % 0.5 Nucleated RBC % 0.0 Absolute Neutrophils 9.97 H Absolute Lymphocytes 3.03 Absolute Monocytes 0.78 Absolute Eosinophils 0.26 Absolute Basophils 0.07 VBG Lactate Sodium Potassium Chloride Carbon Dioxide Anion Gap BUN Creatinine Est GFR (CKD-EPI 2020) Glucose Calcium Total Bilirubin AST ALT Alkaline Phosphatase Total Protein Albumin Procalcitonin 0.6 COVID-19 Source SARS-CoV-2 (PCR) Influenza Type A (PCR) Influenza Type B (PCR) RSV (PCR) Last Vital Signs Temp 37.3 C 10/02/22 05:15 Pulse 91 H 10/02/22 06:22 Resp 20 10/02/22 06:23 BP 112/80 10/02/22 06:22 Pulse Ox 96 10/02/22 06:23 Time Spent Time spent with Patient: 55-74 minutes Time was spent: preparing to see the patient(eg.review tests), obtaining and/or reviewing separately otained hiistory, ordering medications,tests, procedures, referring, communicating with other health home health care worker, indepentently interpreting results, counseling the patient and care coordination
[2022-10-02] MEDS: VANCOMYCIN/WATER (PEG) 1.25 GM/250 ML BAG IV (07:42)
[2022-10-02] MEDS: PIPERACILLIN/TAZO 3.375 GM in Normal Saline 50 ML IVPB ×2 (11:00→20:12)
[2022-10-02] MEDS: Normal Saline Flush 10 ML SYR IVP (11:01)
[2022-10-02 11:42] LABS: *AMPHETAMINES SCREEN URINE Negative (Negative); *BARBITURATES SCREEN URINE Negative (Negative); *BENZODIAZEPINES SCREEN URINE Negative (Negative); Cannabinoids THC Negative (Negative); Cocaine Screen,Urine Positive (Negative); METHADONE URINE SCREEN Positive (Negative); OPIATES URINE SCREEN Negative (Negative)
[2022-10-02 11:43] LABS: Tricyclic Antidepressants Negative (Negative)
[2022-10-02] MEDS: Enoxaparin 40 MG/0.4 ML SYR SC (12:25)
[2022-10-02] MEDS: VANCOMYCIN/WATER (PEG) 1 GM/200 ML BAG IV (17:49)
--- NOTE | 2022-10-02 21:23 | W.PM.PROGNOT ---
Date of Service Date of service: 10/02/22 Time of Service: :23 Assessment and Plan Assessment and plan (1) Opioid dependence, continuous: Status: Acute Assessment and plan: Alannah was threatening to leave the hospital due to her withdrawal symptoms. Currently these have subsided after she used substances from outside the hospital, presumably fentanyl. However she will withdrawal again in a few hours. Even though she does not plan to enter treatment, the current standard of medical care for hospitalized patients with active opioid use disorder is to treat with opioids to avoid withdrawal. Withdrawal can complicate treatment and increase the risk of overdose upon discharge. She declines buprenorphine but will accept methadone, will initiate this after a period of observation of the effects of the fentanyl. Start at 30mg given her heavy use, and we will likely need to titrate up the dose during her stay. She has tolerated up to 80mg of methadone in the recent past (as evidence by positive urine upon admission). She is also in pain so I have written for PRN short acting oxycodone. We should also be on the lookout for signs of xylazine withdrawl in the coming days, which would manifest as anxiety symptoms. Other central acting alpha antagonists such as clonidine and/or tizanidine can help with this along with benzodiazapines. Continue to monitor for respiratory depression. PRN naloxone ordered. Subjective Subjective Interval history since last seen: Per nursing patient took intranasal fentanyl she brought into the hospital, she plans to leave. I talked to patient. She does not want to get sick and does not want suboxone, she was on this for years previously and does not want to go back. She was told that was her only option. She is in pain from her leg as well. She uses fentanyl sometimes with heroin and cocaine every 4 hours typically. She has used methadone recently non-prescribed up to 80mg which didn't make her high or overdose but kept her out of withdrawal. Exam Const Other: Alert and oriented, some initial agitation but becoming more calm and sedate over the time I talked with her. Objective Last Vital Signs Temp 36.7 C 10/02/22 20:21 Pulse 76 10/02/22 20:21 Resp 18 10/02/22 20:21 BP 134/78 10/02/22 20:21 Pulse Ox 100 10/02/22 20:21 Laboratory Results - last 24 hr 10/02/22 10/02/2223 05:29 05:42 05:42 WBC RBC Hgb Hct MCV MCH MCHC RDW Plt Count MPV Immature Gran % Neutrophils % Lymphocytes % Monocytes % Eosinophils % Basophils % Nucleated RBC % Absolute Neutrophils Absolute Lymphocytes Absolute Monocytes Absolute Eosinophils Absolute Basophils VBG Lactate 0.8 Sodium 133 L Potassium 3.9 Chloride 97 L Carbon Dioxide 30.4 Anion Gap 5.6 BUN 14 Creatinine 0.8 Est GFR (CKD-EPI 2020) 92.54 Glucose 110 H Calcium 9.0 Total Bilirubin 0.8 AST 16 ALT 19 Alkaline Phosphatase 116 Total Protein 8.3 H Albumin 3.2 L Procalcitonin Urine Opiates Screen Urine Methadone Screen Ur Barbiturates Screen Ur Tricyclics Screen Ur Amphetamines Screen U Benzodiazepines Scrn Urine Cocaine Screen Ur THC Screen COVID-19 Source Nasopharynx SARS-CoV-2 (PCR) Negative Influenza Type A (PCR) Negative Influenza Type B (PCR) Negative RSV (PCR) Negative 10/02/22 10/02/22 10/02/22 05:42 05:42 10:50 WBC 14.24 H RBC 4.48 Hgb 11.9 Hct 36.9 MCV 82 MCH 26.6 L MCHC 32.2 RDW 15.4 H Plt Count 472 H MPV 8.7 Immature Gran % 0.9 Neutrophils % 70.0 Lymphocytes % 21.3 Monocytes % 5.5 Eosinophils % 1.8 Basophils % 0.5 Nucleated RBC % 0.0 Absolute Neutrophils 9.97 H Absolute Lymphocytes 3.03 Absolute Monocytes 0.78 Absolute Eosinophils 0.26 Absolute Basophils 0.07 VBG Lactate Sodium Potassium Chloride Carbon Dioxide Anion Gap BUN Creatinine Est GFR (CKD-EPI 2020) Glucose Calcium Total Bilirubin AST ALT Alkaline Phosphatase Total Protein Albumin Procalcitonin 0.6 Urine Opiates Screen Negative Urine Methadone Screen Positive A Ur Barbiturates Screen Negative Ur Tricyclics Screen Negative Ur Amphetamines Screen Negative U Benzodiazepines Scrn Negative Urine Cocaine Screen Positive A Ur THC Screen Negative COVID-19 Source SARS-CoV-2 (PCR) Influenza Type A (PCR) Influenza Type B (PCR) RSV (PCR) Time Spent with Patient Time Spent with Patient: 25-34 minutes Time was spent: preparing to see the patient(eg.review tests), obtaining and/or reviewing separately otained hiistory, ordering medications,tests, procedures and counseling the patient
--- NOTE | 2022-10-02 21:26 | NUR.NOTE ---
At approx 2039, staff noticed pt snorting something from her bag. When asked about the substance, patient admitted to snorting Fentanyl. Pt also stated she takes cocaine, fentanly, and heroin every 4 hours and it is unknown if the other subtances are in her bag. Pt gave some of the Fentanyl to staff w/more noticed in her bag that she kept. supervisor lump room notified, security notified, and MD notified. VS taken on pt w/HR-87, B/P-146/100. Pt initially stated she wanted to leave AMA, but convinced pt to stay for her health. Pt agreed to do so. Staff to check VS q2h, check pt every hour, and pt instructed to call staff if she begins feeling unwell.
[2022-10-03 03:10] VITALS: BP 129/81; PULSE 74; RESP 18; TEMP 36.7; O2SAT 97
[2022-10-03] MEDS: PIPERACILLIN/TAZO 3.375 GM in Normal Saline 50 ML IVPB (05:04)
[2022-10-03] MEDS: VANCOMYCIN/WATER (PEG) 1 GM/200 ML BAG IV (06:07)
--- NOTE | 2022-10-03 07:49 | NUR.NOTE ---
Nursing Note: status safety concerns- Nurse received concerning report from blaster helper that patient had admitted to taking medications/drugs not prescribed, per blaster helper RN state police were contacted and advised of situation. Per notes and report patient willingly gave the unknown drugs to state police. Per night RN patient admitted to having additional drugs on person that they did not give to the police. Per blaster helper and nursing notes, MD, pet house sitter and security aware. Nurse did bedside round with blaster helper RN. Patient alert and orientated to self, RLE +4 edema, painful to touch, non palpable pulses on RLE at that time, laboratory attempting to obtain ordered lab draws, but per laboratory clerk patient refused to have blood drawn. Nursing concerns communicated to chargeback specialist's covering both night and day shift and nursing motor coach supervisor, to include requesting 1:1 supervision, telemetry to monitor cardiac status and to update MD of patients refusal of care as well as nursing concerns. Nurse staffs also communicated concerns of potential exposure of unknown substances in patients room. No new orders at this time.
--- NOTE | 2022-10-03 08:33 | NUR.NOTE ---
Nursing Note: Status update patient agreed to have belongs searched by security. program manager slp, supercharger repair supervisor, Med/surg general handling supervisor and nurse present for search.
[2022-10-03 10:10] VITALS: BP 148/86; PULSE 68; RESP 5; TEMP 37.2; O2SAT 99
--- NOTE | 2022-10-03 10:13 | W.PM.DS.N ---
Date of service: 10/03/22 Time of Service: 10:13 DS: Diagnosis Discharge Diagnosis (1) Opioid dependence, continuous: Status: Acute Asessment and Plan: with no desire to quit. recommend outpatient counseling or rehab should she change her mind. she is at high risk for accidental overdose and which was discussed with her. (2) Cellulitis of leg, right: Status: Acute Asessment and Plan: erythema improved overnight. she never filled her prescription (record says sent to [facility] which is closed so unclear where it was sent?) regardless, she didn't fail outpatient antibiotics but rather compliance. We will dispense a 10 day supply of clindamycin to help facilitate compliance as I doubt she will fill a prescription. Her blood cultures and echo are negative for evidence of systemic infection or endocarditis. she is at high risk for treatment failure d/t non compliance and ongoing substance abuse. she is discharged with written and verbal cellulitis instructions in addition to risks of ongoing substance abuse. Discharge Plan Disposition Patient Disposition: Home Condition: Improving Discharge Details Reason For Visit: Sepsis Due to Cellulitis of RLE Admit Date/Time: 10/02/22 07:34 Admit Provider: Estelita Perla Attending Provider: Estelita Perla Primary Care Provider: Nikos Vernon Home Meds and New Rx's Prescriptions: New clindamycin HCl 300 mg Capsule 600 mg PO Q8H Qty: 0 0RF Discharge Instructions Instructions: Cellulitis (DC), Polysubstance Abuse (ED), Narcotic Use Disorder (DC) Additional Instructions: Your infection is improving with treatment. It is important that you continue treatment after discharge. This includes: 1. take antibiotics as prescribed, if you miss a dose do not double up, resume as soon as possible and continue as directed. do not stop until the prescription is finished. if you do not take your antibiotics the infection will get worse and you are at risk for serious and life threatening outcomes, basically you could . 2. seek treatment for your substance abuse disorder. you are at high risk for overdose and . Your poor health and infection are likely directly related to your drug use. you are at high risk for other health complications that can result in if you continue to use. Stand Alone Forms: Nursing Discharge Form Referrals: Nikos Vernon [Primary Care Provider] - (get established with a primary care provider and substance abuse counselor. resources have been provided. ) Temo Raymundo, [facility] [NURSE PRACTITIONER] - (office to call patient with new patient appointment.) Activity:: Activity as Tolerated Equipment/Supplies:: No Equipment Needed Diet:: As Tolerated Discharge Orders Discharge Orders: Discharge Order (Routine); Ordered 10/03/22 Ordered By: Meghana Angelo Discharge Data Discharge Date/Time-TO BE ENTERED AT DEPARTURE: 10/03/22 11:45 DS: Summary Time Spent with Patient providing and/or coordinating discharge services: Greater than 30 minutes Status at Discharge Functional status at discharge: independent ambulation Overall status at discharge: patient is not back to baseline Mental Status: mental status grossly normal and other (blunted) Speech and Movement: speech and movement normal Mood: other (blunted) Affect: blunted Exam Const General: not healthy appearing, disheveled, frail appearing and ill appearing Nutritional Appearance: malnourished Orientation: other (appears impaired or sleepy) Skin General skin exam: erythema (mild to right lower ext) Lesions: lesion noted (old puck michaud on bilateral legs, healed consistent with picking) Rashes: rashes noted (right lower extremity, mild erythema but extensive swelling bilat R>L) Neuro General: patient alert, patient awake, patient oriented x3 and no focal motor deficits Cognition: normal cognition (demostrated capacity with appropriate responses during conversation) Speech: speech normal Gait: normal gait Motor: muscle tone normal throughout Extrem General: edema (R>L) Laterality: bilateral Psych Mental Status: mental status grossly normal and other (blunted) Speech and Movement: speech and movement normal Mood: other (blunted) Affect: blunted DS: Data Vitals/I&O Vitals and I&O: Vital Signs Temperature 36.7 C 10/03/22 03:10 Temperature Source Tympanic 10/03/22 03:10 Pulse 74 10/03/22 03:10 Pulse Rhythm Regular 10/03/22 01:05 Pulse 77 10/02/22 08:50 Respiratory Rate 18 10/03/22 03:10 Respiratory Effort Normal, Non-Labored 10/03/22 01:05 Respiratory Depth Normal 10/03/22 01:05 Respiratory Pattern Normal 10/03/22 01:05 Blood Pressure 129/81 10/03/22 03:10 Blood Pressure Mean 81 10/02/22 08:46 Blood Pressure Position Supine 10/02/22 05:15 Pulse Oximetry 97 10/03/22 03:10 Oxygen Delivery Method Room Air 10/03/22 03:10 Oxygen Flow Rate 0 10/03/22 03:10 Pain Level 0 10/02/22 15:07 Intake & Output 10/02/22 10/02/22 10/03/22 11:59 23:59 11:59 Intake Total 1450 / 1700 250 / 1700 52.292 / 52.292 Output Total 450 / 450 Balance 1000 / 1250 250 / 1250 52.292 / 52.292 Weight 58.967 kg 61.2 kg Intake: IV 1450 / 1700 250 / 1700 52.292 / 52.292 Output: Urine 450 / 450 Other: Urine Color Light Rosemarie Urine Appearance Clear Voiding Methods Bedside Commode Data Completed and Pending Labs on day of discharge: Labs from last 24 hours 10/03/22 10/03/22 10/03/22 17:00 05:35 05:35 WBC Pending RBC Pending Hgb Pending Hct Pending MCV Pending MCH Pending MCHC Pending RDW Pending Plt Count Pending MPV Pending Immature Gran % Pending Neutrophils % Pending Lymphocytes % Pending Monocytes % Pending Eosinophils % Pending Basophils % Pending Absolute Neutrophils Pending Absolute Lymphocytes Pending Absolute Monocytes Pending Absolute Eosinophils Pending Absolute Basophils Pending Sodium Pending Potassium Pending Chloride Pending Carbon Dioxide Pending Anion Gap Pending BUN Pending Creatinine Pending Est GFR (CKD-EPI 2020) Pending Glucose Pending Calcium Pending Magnesium Pending C-Reactive Protein Pending Vancomycin Trough Pending Urine Opiates Screen Urine Methadone Screen Ur Barbiturates Screen Ur Tricyclics Screen Ur Amphetamines Screen U Benzodiazepines Scrn Urine Cocaine Screen Ur THC Screen Hep Bs Antigen Hep Bs Antibody Hep Bs Antibody, Quant Hep B Core Total Ab HCV RNA Qual (PCR) Hepatitis C RNA Quant HIV 1&2 Ag/Ab, 4th Gen 10/02/22 10/02/22 10/02/22 10:50 06:37 05:42 WBC RBC Hgb Hct MCV MCH MCHC RDW Plt Count MPV Immature Gran % Neutrophils % Lymphocytes % Monocytes % Eosinophils % Basophils % Absolute Neutrophils Absolute Lymphocytes Absolute Monocytes Absolute Eosinophils Absolute Basophils Sodium Potassium Chloride Carbon Dioxide Anion Gap BUN Creatinine Est GFR (CKD-EPI 2020) Glucose Calcium Magnesium C-Reactive Protein Vancomycin Trough Urine Opiates Screen Negative Urine Methadone Screen Positive A Ur Barbiturates Screen Negative Ur Tricyclics Screen Negative Ur Amphetamines Screen Negative U Benzodiazepines Scrn Negative Urine Cocaine Screen Positive A Ur THC Screen Negative Hep Bs Antigen Hep Bs Antibody Hep Bs Antibody, Quant Hep B Core Total Ab HCV RNA Qual (PCR) Pending Hepatitis C RNA Quant Pending HIV 1&2 Ag/Ab, 4th Gen Pending 10/02/22 05:42 WBC RBC Hgb Hct MCV MCH MCHC RDW Plt Count MPV Immature Gran % Neutrophils % Lymphocytes % Monocytes % Eosinophils % Basophils % Absolute Neutrophils Absolute Lymphocytes Absolute Monocytes Absolute Eosinophils Absolute Basophils Sodium Potassium Chloride Carbon Dioxide Anion Gap BUN Creatinine Est GFR (CKD-EPI 2020) Glucose Calcium Magnesium C-Reactive Protein Vancomycin Trough Urine Opiates Screen Urine Methadone Screen Ur Barbiturates Screen Ur Tricyclics Screen Ur Amphetamines Screen U Benzodiazepines Scrn Urine Cocaine Screen Ur THC Screen Hep Bs Antigen Pending Hep Bs Antibody Pending Hep Bs Antibody, Quant Pending Hep B Core Total Ab Pending HCV RNA Qual (PCR) Hepatitis C RNA Quant HIV 1&2 Ag/Ab, 4th Gen Preliminary micro results at discharge 10/02/22 06:37 Blood Culture - Preliminary Blood NO GROWTH 24 HOURS 10/02/22 05:42 Blood Culture - Preliminary Blood NO GROWTH 24 HOURS PFSH All Active Problems (Updated 10/04/22 @ 00:01 by NAHID FRAZIER) Cellulitis of leg, right (Acute) Heart murmur (Acute) Cellulitis of right leg (Acute) IVDU (intravenous drug user) (Acute) Hepatitis C virus infection without hepatic coma (Chronic) Foreign body of neck (Acute) Right side Numbness of left hand (Acute) 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) Bilateral leg weakness (Acute) Smoker (Acute 09/16/13) 0.5 PPD, working with Marianne Fernanda Amphetamine abuse, episodic (Acute 11/14/16) Relapse: Adderal fall 2015 until 10/17/16: Isauro Iraheta identified Attention deficit hyperactivity disorder (ADHD), combined type (Acute 04/23/17) updating diagnosis from ADHD unspecified; screen 03/2017; h/o prior rx Dr [place]; counselor Isauro Iraheta, consult Dr Manuel Anemia (Chronic) Transaminitis (Acute) Neuropathy (Acute) Oral contraception initial prescription (Acute 08/05/11) Opioid dependence on agonist therapy (Acute 06/18/05) Prior dilaudid, heroin, etc.; INDUCTION AT SUBSTANCE TREATMENT 06/2005 ON REFERRAL FROM [facility], COUNSELOR: Isauro Iraheta; MAT team begun 12/2015; problem 11/14/16 (amphetamine use) Opioid dependence, continuous (Acute 06/18/05) INDUCTION AT SUBSTANCE TREATMENT 06/2005 ON REFERRAL FROM [facility], COUNSELLOR: WILLIE Smith [facility]; problematic episode 04/2012 (ritalin misuse) Depressive disorder (Acute 05/22/05) SCREEN ADHD, [facility] RITALIN RX; Denisse Sethi eval 2011 Anxiety disorder (Acute 08/05/11) ?? ADD PIECE: [facility] EVAL 08/2011 Adjustment disorder, unspecified (Acute 03/03/16) Medical History (Updated 10/04/22 @ 00:01 by NAHID FRAZIER) Anxiety Depression Opiate dependence Polysubstance abuse Surgical History History of dilatation and curettage Family History (Updated 10/02/22 @ 09:05 by Estelita Perla MD) Father Alcohol abuse Mother No problems noted. 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 Lost [facility] license. Has 3 kids in foster care. Time Spent with Patient Time Spent with Patient: 45-69 minutes Time was spent: preparing to see the patient(eg.review tests), obtaining and/or reviewing separately otained hiistory, ordering medications,tests, procedures, indepentently interpreting results and counseling the patient
--- NOTE | 2022-10-03 10:33 | INITIAL_ITS ---
- If Service Date Differs Date of service: 10/03/22 Time of Service: 10:33 Care Management Initial Assess REASON FOR HOSPITALIZATION:: Cellulitis of leg, right PAST MEDICAL HISTORY/PAST SURGICAL HISTORY:: All Active Problems (Updated 10/02/22 @ 09:16 by Estelita Perla MD). Cellulitis of leg, right (Acute). Heart murmur (Acute). Cellulitis of right leg (Acute). IVDU (intravenous drug user) (Acute). Hepatitis C virus infection without hepatic coma (Chronic). Foreign body of neck (Acute). Right side. Numbness of left hand (Acute). Discharge planning issues (Acute). DVT prophylaxis (Acute). 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 Bilateral leg weakness (Acute). Smoker (Acute 09/16/13). 0.5 PPD, working with Marianne Michael. Amphetamine abuse, episodic (Acute 11/14/16). Relapse: Adderal fall 2015 until 10/17/16: Isauro Iraheta identified. Attention deficit hyperactivity disorder (ADHD), combined type (Acute 04/23/17). updating diagnosis from ADHD unspecified; screen 03/2017; h/o prior rx Dr Montana; counselor Isauro Iraheta, consult Dr Manuel. Anemia (Chronic). Transaminitis (Acute). Neuropathy (Acute). Oral contraception initial prescription (Acute 08/05/11). Opioid dependence on agonist therapy (Acute 06/18/05). Prior dilaudid, heroin, etc.; INDUCTION AT SUBSTANCE TREATMENT 06/2005 ON REFERRAL FROM [facility], COUNSELOR: Isauro Iraheta; MAT team begun 12/2015; problem 11/14/16 (amphetamine use). Opioid dependence, continuous (Acute 06/18/05). INDUCTION AT SUBSTANCE TREATMENT 06/2005 ON REFERRAL FROM [facility], COUNSELLOR: WILLIE Smith [facility]; problematic episode 04/2012 (ritalin misuse). Depressive disorder (Acute 05/22/05). SCREEN ADHD, [facility] RITAL[facility] RX; Denisse rousseau 2011. Anxiety disorder (Acute 08/05/11). ?? ADD PIECE: [facility] EVAL 08/2011. Adjustment disorder, unspecified (Acute 03/03/16). Medical History (Updated 10/02/22 @ 09:16 by Estelita Perla MD). Anxiety. Depression. Opiate dependence. Polysubstance abuse. Surgical History . History of dilatation and curettage PREVIOUS FUNCTIONAL STATUS/SOCIAL/FAMILY SUPPORTS:: Alannah lives in [facility] [place] [facility] with a friend. She is unemployed and uses [facility] for transportation. CURRENT FUNCTIONAL STATUS:: Alannah is lying in bed and minimally engages with this engineering writer. Alannah shares that she is not interested in establishing care with a PCP or being connected with [facility] services at this time. Alannah reports that she is aware of community resources, including [facility] and [facility]. Per pt, she is connected to economic services and doesn't have any barriers to accessing community support, transportation or food. ADVANCE DIRECTIVES:: None Has patient been provided with info about the portal/API?: Yes Did the patient sign up for the portal?: No CODE STATUS:: Full Code INSURANCE COVERAGE / FINANCIAL ISSUES:: Medicaid CURRENT HOME/COMMUNITY SERVICES/EQUIPMENT:: [facility] PRIMARY CARE PHYSICIAN:: None, currently not interested routine healthcare POTENTIAL DISCHARGE NEEDS:: Follow up with [facility]. Community Resources. Local PCP list PATIENT/FAMILY EDUCATION NEEDS:: Review discharge instructions, limitations, medications and encourage pt to follow up with community providers. Discuss ask me three and goals of self care. TRANSPORTATION:: [facility] PLAN:: Anticipate, Alannah will discharge home on PO ABX via [facility] when medically ready per providers. She will be encouraged to follow up with community providers and discharge plan of care as prescribed.
--- NOTE | 2022-10-03 10:41 | NUR.NOTE ---
Nursing Note: Status update, bilateral doppler, DP and PT obtained
--- NOTE | 2022-10-03 10:50 | CMDISCH_ITS ---
- If Service Date Differs Date of service: 10/03/22 Time of Service: 10:50 LACE Index Scoring Tool - Questions: Length of Stay (in days): 1 Acuity (Admit via E.D.?): Yes E.D. Visits: 2 - Answers: Total Score: 6 Risk of Readmission: Low Risk Care Management Discharge Reason for Hospitalization: Cellulitis of leg, right Discharge Plan: Alannah is discharged home on PO ABX. She is transported via [facility] at her request. Alannah is encouraged to follow up with community pro viders and discharge plan of care as prescribed. Pt is aware of community resources. Referral's are not made per Alannah's request. Patient/Family Education Needs: Review discharge instructions, limitations, medications and encourage pt to follow up with community providers and discharge plan of care as prescribed. Discuss ask me three and goals of self care.
--- NOTE | 2022-10-03 11:52 | NUR.NOTE ---
Nursing Note: Nurse removed IV's, gave patient prescribed antibiotics, reviewed discharge paper work, to include risk of injury or if medication prescribed is not taking, reviewed importance to return if symptoms worsen, recommended patient wait for staff to secure a follow up appointment however patient did not want to wait my ride is here, I have to go, patient verbalized understanding of discharge instruction, does not have a phone number she wished to provide [facility], and will call to find to confirm follow up appointment dates, patient was provided telephone number for med/surg floor. Nurse walked patient to car where friend was waiting, again reviewed importance of follow up, risk of injury or if antibiotics are not taken, and to return if symptoms do not improve or worse, friend and patient verbalized understanding.
[2022-10-04 11:43] LABS: HIV-1/2 Ag & Ab Screen Negative (Negative)
[2022-10-06 11:00] LABS: HBs Antibody, Quant 174.1 mIU/mL (See Note); Hep B Surface Ab Positive (See Note); Hepatitis B Core Antibody Negative (Negative); Hepatitis B Surface Antigen Negative (Negative)
[2022-10-06 11:48] LABS: HCV RNA Qualitative Undetected (Undetected)
== END 2022-10-03 11:45 | disposition home or self-care (01) | DRG 603 ==
LOC: ER 07:38 → MS 09:23
PROVIDERS: Admitting Provider Internal Medicine; Emergency Provider Student in an Organized Health Care Education/Training Program; Visit Provider Internal Medicine
DX: L03.115 Cellulitis of right lower limb (principal); F11.20 Opioid dependence, uncomplicated; F32.A Depression, unspecified; R01.1 Cardiac murmur, unspecified; F17.210 Nicotine dependence, cigarettes, uncomplicated; F90.2 Attention-deficit hyperactivity disorder, combined type; D64.9 Anemia, unspecified; G62.9 Polyneuropathy, unspecified; F41.9 Anxiety disorder, unspecified; F19.10 Other psychoactive substance abuse, uncomplicated; F12.90 Cannabis use, unspecified, uncomplicated; F13.90 Sedative, hypnotic, or anxiolytic use, unspecified, uncomplicated; F15.90 Other stimulant use, unspecified, uncomplicated; B18.2 Chronic viral hepatitis C; F14.90 Cocaine use, unspecified, uncomplicated
CPT/HCPCS: 36415; 76881; 80048; 80053; 80307; 84145; 86704; 86706; 87040; 87340; 87389; 87522; 87637; 96365; 96366; 96367; 96368; 96375; 99285; J1650; 73590; 80202; 83605; 83735; 85025; 86140; 93306; 99223; 99239; J0131; J1885; J2543

== ENCOUNTER 2022-12-29 04:26 | Emergency (ER) | payer MEDICAID, SELFPAY ==
[2022-12-29 04:29] VITALS: BP 138/83; PULSE 96; RESP 14; TEMP 36.6; O2SAT 98
--- NOTE | 2022-12-29 04:45 | ED.GENADUL_ITS ---
Discharge Plan Disposition Patient Disposition: Home Discharge Details Clinical Impression: Cellulitis of right ankle, Homeless Primary Care Provider: Unknown,Unknown ED Provider: Aryan Salamanca Home Meds and New Rx's Prescriptions: New clindamycin HCl [Cleocin HCl] 300 mg capsule 600 mg PO TID 7 Days Qty: 42 0RF ibuprofen [Motrin IB] 200 mg tablet 600 mg PO Q6H Qty: 60 0RF No Action clindamycin HCl 300 mg Capsule 600 mg PO Q8H Qty: 0 0RF Patient Comments: not currently taking Discharge Instructions Instructions: Cellulitis (ED) Additional Instructions: At this time you have evidence of cellulitis on your right ankle. Thankfully there is no evidence of abscess or gas collection. Please take the clindamycin as directed. If you notice any worsening of your symptoms, or any new symptoms such as vomiting, diarrhea, fever, chills, shortness of breath, chest pain, numbness, weakness, or fainting , please return immediately to the emergency department for reevaluation. Please follow up with your primary care provider as soon as possible for reassessment and reevaluation. As always, it was a pleasure participating in your medical care today. Medical Decision Making This is a 47-year-old female with a past medical history of hepatitis C, IVdrug use, depression, ADHD, injections into her right lower extremity as the site for her IV drug use, who presents today for evaluation of redness and swelling in her right ankle. Patient states that she injected there a few days ago, and shortly thereafter developed redness and swelling for the last 2 to 3 days. She denies fever or chills. She states that it was with a clean needle. She denies any chest pain. She denies any pain in the ankle foot or leg. No other complaints at this time. No other modifying factors. She stated that she injected fentanyl/heroin. She denies any cocaine use. Exam demonstrates mild cellulitis in the right ankle. No crepitus or fluid collection. No evidence to suggest necrotizing fasciitis, septic joint, or other systemic infectious etiology. Vital signs are stable. No fever. No evidence of DVT clinically. Patient does have a murmur, however on her last admission this was present she did have an echo which showed no evidence of vegetation. At this time we will treat the patient with clindamycin. She does have a history of noncompliance to medication secondary to not getting it filled. We will give her first dose here, of bottle to go home with, as well as a prescription for 600 mg 3 times daily dosing secondary to concerns for compliance. I did discuss the patient's IV drug use habits, and asked if she would be willing to speak with a sales coach. She is currently homeless. We will contact the recovery coaches for her. I have extensively reviewed the treatment plan and discharge instructions with the patient. I have addressed all patient concerns at this time. The patient was made aware of what symptoms to monitor for that would warrant a return to the emergency department. Discussed the plan with the patient, they demonstrate verbal understanding and agreement with our assessment and plan at this time. The documentation in this chart was dictated using [employer] dictation software. Please excuse any dictation errors. HPI General Date/Time Provider Initiated Documentation: 12/29/22 04:33 . HPI Narrative: This is a 47-year-old female with a past medical history of hepatitis C, IVdrug use, depression, ADHD, injections into her right lower extremity as the site for her IV drug use, who presents today for evaluation of redness and swelling in her right ankle. Patient states that she injected there a few days ago, and shortly thereafter developed redness and swelling for the last 2 to 3 days. She denies fever or chills. She states that it was with a clean needle. She denies any chest pain. She denies any pain in the ankle foot or leg. No other complaints at this time. No other modifying factors. She stated that she injected fentanyl/heroin. She denies any cocaine use. Related Data Home Medications Medication Instructions Recorded Confirmed clindamycin HCl 300 mg capsule 600 mg PO Q8H #0 caps 10/03/22 clindamycin HCl 300 mg capsule 600 mg PO TID 7 days #42 caps 12/29/22 (Cleocin HCl) ibuprofen 200 mg tablet (Motrin IB) 600 mg PO Q6H #60 tabs 12/29/22 Previous Rx's Medication Instructions Recorded clindamycin HCl 300 mg capsule 600 mg PO Q8H #0 caps 10/03/22 clindamycin HCl 300 mg capsule 600 mg PO TID 7 days #42 caps 12/29/22 (Cleocin HCl) ibuprofen 200 mg tablet (Motrin IB) 600 mg PO Q6H #60 tabs 12/29/22 Allergies Allergy/AdvReac Type Severity Reaction Status Date / Time diphenhydramine HCl AdvReac paradoxical Verified 12/29/22 04:35 [From Benadryl] stimulant General Stated Complaint: Cellulitis CARMINE: 3 Review of Systems All systems reviewed & are unremarkable except as noted in HPI and below PFSH All Active Problems Cellulitis of right ankle (Acute) Homeless (Acute) Cellulitis of right leg (Acute) IVDU (intravenous drug user) (Acute) Hepatitis C virus infection without hepatic coma (Chronic) Foreign body of neck (Acute) Right side Numbness of left hand (Acute) 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) Bilateral leg weakness (Acute) Smoker (Acute 09/16/13) 0.5 PPD, working with Marianne Michael Amphetamine abuse, episodic (Acute 11/14/16) Relapse: Adderal fall 2015 until 10/17/16: Isauro Iraheta identified Attention deficit hyperactivity disorder (ADHD), combined type (Acute 04/23/17) updating diagnosis from ADHD unspecified; screen 03/2017; h/o prior rx Dr [place]; counselor Isauro Iraheta, consult Dr Manuel Anemia (Chronic) Transaminitis (Acute) Neuropathy (Acute) Oral contraception initial prescription (Acute 08/05/11) Opioid dependence on agonist therapy (Acute 06/18/05) Prior dilaudid, heroin, etc.; INDUCTION AT SUBSTANCE TREATMENT 06/2005 ON REFERRAL FROM [facility], COUNSELOR: Isauro Iraheta; MAT team begun 12/2015; problem 11/14/16 (amphetamine use) Opioid dependence, continuous (Acute 06/18/05) INDUCTION AT SUBSTANCE TREATMENT 06/2005 ON REFERRAL FROM [facility], COUNSELLOR: WILLIE Smith [facility]; problematic episode 04/2012 (ritalin misuse) Depressive disorder (Acute 05/22/05) SCREEN [place], DR [place] [facility] RITALIN RX; Denisse rousseau 2011 Anxiety disorder (Acute 08/05/11) ?? ADD PIECE: [facility] EVAL 08/2011 Adjustment disorder, unspecified (Acute 03/03/16) Medical History Anxiety Depression Opiate dependence Polysubstance abuse Surgical History History of dilatation and curettage Family History Father Alcohol abuse Mother No problems noted. 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 Lost [employer] license. Has 3 kids in foster care. Exam Narrative Exam Narrative: 1.Const: Well-nourished, Well-developed, appearing stated age 2.Eyes: PERRL, no conjunctival injection, and symmetrical lids. 3.ENT: Atraumatic external nose and ears. Moist MM. Neck: Symmetric, trachea midline, No thyromegaly. 4.CVS: +S1/S2, mild murmur present. Peripheral pulses 2+ and equal in all extremities. Brisk capillary refill in all extremities. 5.RESP: Unlabored respiratory effort. Clear to auscultation bilaterally. No wheezes rales or rhonchi 6.GI: Soft, Nontender/Nondistended, No hepatosplenomegaly. No guarding or rebound. 7.MSK: Patient demonstrates chronic swelling in the lower extremities bilaterally, mild redness and some mild swelling around the right ankle. Bedside ultrasound shows no fluid collection or air subcutaneously. No palpable crepitus. No significant tenderness or pain with movement of the right ankle. Distal exam demonstrates good capillary refill. 8.Skin: Warm, Dry. No rashes or lesions. 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 Sensation grossly intact, no focal neurologic deficits. 10.Psych: (AAO) x3. Appropriate mood and affect Course Vital Signs Vital signs: Vital Signs Temperature 36.6 C 12/29/22 04:29 Pulse 96 H 12/29/22 04:29 Respiratory Rate 14 12/29/22 04:29 Blood Pressure 138/83 12/29/22 04:29 Pulse Oximetry 98 12/29/22 04:29 Temperature 36.6 C 12/29/22 04:29 Temperature Source Temporal Artery Scan 12/29/22 04:29 Pulse 96 H 12/29/22 04:29 Respiratory Rate 14 12/29/22 04:29 Respiratory Effort Normal, Non-Labored 12/29/22 04:38 Blood Pressure 138/83 12/29/22 04:29 Blood Pressure Position Sitting 12/29/22 04:29 Pulse Oximetry 98 12/29/22 04:29 Oxygen Delivery Method Room Air 12/29/22 04:29 Oxygen Flow Rate 0 12/29/22 04:29 Pain Level 6 12/29/22 04:29
[2022-12-29] MEDS: Clindamycin 150 MG CAP, 12 CAPS/BTL 450 MG PO (04:52)
[2022-12-29] MEDS: Clindamycin 150 MG CAP 450 MG PO (04:52)
[2022-12-29] MEDS: Ibuprofen 800 MG TAB PO (05:03)
== END 2022-12-29 06:19 | disposition home or self-care (01) ==
PROVIDERS: Emergency Provider Student in an Organized Health Care Education/Training Program
DX: M25.571 Pain in right ankle and joints of right foot (principal); L03.115 Cellulitis of right lower limb; F19.19 Other psychoactive substance abuse with unspecified psychoactive substance-induced disorder; F17.210 Nicotine dependence, cigarettes, uncomplicated; Z59.00 Homelessness unspecified
CPT/HCPCS: 99283

== ENCOUNTER 2023-01-03 05:54 | Emergency (ER) | payer MEDICAID, SELFPAY ==
[2023-01-03 05:57] VITALS: BP 144/78; PULSE 74; RESP 16; TEMP 36.9; O2SAT 98
--- NOTE | 2023-01-03 06:22 | W.ED.GENAD ---
Discharge Plan Disposition Patient Disposition: Home Condition: Good Discharge Details Chief Complaint: Cellulitis Clinical Impression: Abscess of skin of right ankle Primary Care Provider: Unknown,Unknown ED Provider: Aryan Salamanca Home Meds and New Rx's Prescriptions: No Action clindamycin HCl [Cleocin HCl] 300 mg capsule 600 mg PO TID 7 Days Qty: 42 0RF ibuprofen [Motrin IB] 200 mg tablet 600 mg PO Q6H Qty: 60 0RF clindamycin HCl 300 mg Capsule 600 mg PO Q8H Qty: 0 0RF Patient Comments: not currently taking Discharge Instructions Instructions: Abscess (ED) Additional Instructions: At this time the infection was drained. It is a combination of bacterial infection as well as your chronic lymphadenopathy. You are doing an excellent job with the antibiotic, please continue to take this as directed. If you notice any worsening of your symptoms, or any new symptoms such as vomiting, diarrhea, fever, chills, shortness of breath, chest pain, numbness, weakness, or fainting , please return immediately to the emergency department for reevaluation. Please follow up with your primary care provider as soon as possible for reassessment and reevaluation. As always, it was a pleasure participating in your medical care today. Medical Decision Making This is a 47-year-old female with a past medical history of hepatitis C, IVdrug use, depression, ADHD, injections into her right lower extremity as the site for her IV drug use who presents today for recheck. Patient was seen 5 days ago after using in the right ankle, she had evidence of mild cellulitis at that time. She has been taking the clindamycin as directed. She comes back today for swelling just proximal to the right ankle. She states that someone threw an ice pack at that area, it caused some pain and then shortly after that there was some swelling which is gradually increased. She denies fever or chills. No pain in the ankle itself with movement of the ankle. No pain in the toes. No other complaints at this time. Exam demonstrates an area of fluctuance proximal to the ankle with a diameter of around 3 to 4 cm. It does not appear to track into the ankle itself. It appears to be localized. No evidence of a septic joint, no pain with movement of the ankle. No pain with flexion or extension of the toes. No evidence of flexor or extensor tenosynovitis. Ultrasound confirms a fluid pocket. The area was anesthetized, 18-gauge needle was then used and 20 cc of purulent fluid was extracted. Patient tolerated this well. No surrounding subcutaneous crepitus. Patient felt much better after procedure. No evidence of necrotizing fasciitis at this time. No pain out of proportion. No evidence of laissez-faire. Symptoms consistent with abscess. Recommend continued clindamycin. Patient otherwise feels clinically well. Discussed red flags for which to return. I have extensively reviewed the treatment plan and discharge instructions with the patient. I have addressed all patient concerns at this time. The patient was made aware of what symptoms to monitor for that would warrant a return to the emergency department. Discussed the plan with the patient, they demonstrate verbal understanding and agreement with our assessment and plan at this time. The documentation in this chart was dictated using [employer] dictation software. Please excuse any dictation errors. HPI General Date/Time Provider Initiated Documentation: 01/03/23 05:56. HPI Narrative: This is a 47-year-old female with a past medical history of hepatitis C, IVdrug use, depression, ADHD, injections into her right lower extremity as the site for her IV drug use who presents today for recheck. Patient was seen 5 days ago after using in the right ankle, she had evidence of mild cellulitis at that time. She has been taking the clindamycin as directed. She comes back today for swelling just proximal to the right ankle. She states that someone threw an ice pack at that area, it caused some pain and then shortly after that there was some swelling which is gradually increased. She denies fever or chills. No pain in the ankle itself with movement of the ankle. No pain in the toes. No other complaints at this time. Related Data Home Medications Medication Instructions Recorded Confirmed clindamycin HCl 300 mg capsule 600 mg PO Q8H #0 caps 10/03/22 01/03/23 clindamycin HCl 300 mg capsule 600 mg PO TID 7 days #42 caps 12/29/22 01/03/23 (Cleocin HCl) ibuprofen 200 mg tablet (Motrin IB) 600 mg PO Q6H #60 tabs 12/29/22 01/03/23 Previous Rx's Medication Instructions Recorded clindamycin HCl 300 mg capsule 600 mg PO Q8H #0 caps 10/03/22 clindamycin HCl 300 mg capsule 600 mg PO TID 7 days #42 caps 12/29/22 (Cleocin HCl) ibuprofen 200 mg tablet (Motrin IB) 600 mg PO Q6H #60 tabs 12/29/22 Allergies Allergy/AdvReac Type Severity Reaction Status Date / Time diphenhydramine HCl AdvReac paradoxical Verified 01/03/23 06:04 [From Benadryl] stimulant General Stated Complaint: Cellulitis CARMINE: 3 Review of Systems All systems reviewed & are unremarkable except as noted in HPI and below PFSH All Active Problems (Updated 01/03/23 @ 06:29 by Aryan Salamanca DO) Cellulitis of right ankle (Acute) Homeless (Acute) Abscess of skin of right ankle (Acute) Cellulitis of right leg (Acute) IVDU (intravenous drug user) (Acute) Hepatitis C virus infection without hepatic coma (Chronic) Foreign body of neck (Acute) Right side Numbness of left hand (Acute) 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) Bilateral leg weakness (Acute) Smoker (Acute 09/16/13) 0.5 PPD, working with Marianne Fernanda Amphetamine abuse, episodic (Acute 11/14/16) Relapse: Adderal fall 2015 until 10/17/16: Isauro Iraheta identified Attention deficit hyperactivity disorder (ADHD), combined type (Acute 04/23/17) updating diagnosis from ADHD unspecified; screen 03/2017; h/o prior rx Dr [place]; counselor Isauro Iraheta, consult Dr Manuel Anemia (Chronic) Transaminitis (Acute) Neuropathy (Acute) Oral contraception initial prescription (Acute 08/05/11) Opioid dependence on agonist therapy (Acute 06/18/05) Prior dilaudid, heroin, etc.; INDUCTION AT SUBSTANCE TREATMENT 06/2005 ON REFERRAL FROM [facility], COUNSELOR: Isauro Iraheta; MAT team begun 12/2015; problem 11/14/16 (amphetamine use) Opioid dependence, continuous (Acute 06/18/05) INDUCTION AT SUBSTANCE TREATMENT 06/2005 ON REFERRAL FROM [facility], COUNSELLOR: WILLIE Smith [facility]; problematic episode 04/2012 (ritalin misuse) Depressive disorder (Acute 05/22/05) SCREEN ADHD, [facility] [place] [facility] RITALIN RX; Denisse rousseau 2011 Anxiety disorder (Acute 08/05/11) ?? ADD PIECE: [facility] EVAL 08/2011 Adjustment disorder, unspecified (Acute 03/03/16) Medical History Anxiety Depression Opiate dependence Polysubstance abuse Surgical History History of dilatation and curettage Family History Father Alcohol abuse Mother No problems noted. Maternal Grandmother Breast cancer Paternal Grandfather Colorectal cancer Maternal Grandfather Larynx cancer Social History Smoking/Tobacco Use Status: Current every day Tobacco Type: cigarettes Smoking risk assessment performed?: Yes Alcohol Intake: former Drug use: Daily Substance use type: marijuana, heroin, amphetamines, sedatives, IV drugs and other Details: wellbutrin Adopted: No Foster care: Yes Household members: significant other Number of Children: 3 current occupation: Former [employer] Pets and animals: Yes Seatbelt use: always Helmet use: Yes Drive 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 Lost [employer] license. Has 3 kids in foster care. Exam Narrative Exam Narrative: 1.Const: Well-nourished, Well-developed, appearing stated age 2.Eyes: PERRL, no conjunctival injection, and symmetrical lids. 3.ENT: Atraumatic external nose and ears. Moist MM. Neck: Symmetric, trachea midline, No thyromegaly. 4.CVS: +S1/S2, No murmurs or gallops. Peripheral pulses 2+ and equal in all extremities. Brisk capillary refill in all extremities. 5.RESP: Unlabored respiratory effort. Clear to auscultation bilaterally. No wheezes rales or rhonchi 6.GI: Soft, Nontender/Nondistended, No hepatosplenomegaly. No guarding or rebound. 7.MSK: Right lower extremity demonstrates chronic peripheral edema, however just proximal to the ankle is an area of fluctuance around 4 cm x 3 cm. The right lower extremity actually demonstrates less erythema than on her previous visit which is an improvement. No pain with movement of the ankle itself. No excessive pain with plantar dorsiflexion of the toes or foot. No calf tenderness. Mild tenderness in the area of fluctuance. 8.Skin: Warm, Dry. No rashes or lesions. 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 Sensation grossly intact, no focal neurologic deficits. 10.Psych: (AAO) x3. Appropriate mood and affect Course Vital Signs Vital signs: Vital Signs Temperature 36.9 C 01/03/23 05:57 Pulse 74 01/03/23 05:57 Respiratory Rate 16 01/03/23 05:57 Blood Pressure 144/78 H 01/03/23 05:57 Pulse Oximetry 98 01/03/23 05:57 Temperature 36.9 C 01/03/23 05:57 Temperature Source Oral 01/03/23 05:57 Pulse 74 01/03/23 05:57 Respiratory Rate 16 01/03/23 05:57 Respiratory Effort Normal 01/03/23 06:02 Blood Pressure 144/78 H 01/03/23 05:57 Pulse Oximetry 98 01/03/23 05:57 Oxygen Delivery Method Room Air 01/03/23 05:57 Oxygen Flow Rate 0 01/03/23 05:57 Pain Level 8 01/03/23 05:57 Procedures Abscess I/D Site: Lower Extremity Side (if applicable): Right Local Anesthetic: Lidocaine 1% Amount of anesthesia used (mL): 3 Technique: Needle Aspiration Amount of fluid expressed (mL): 20 Irrigation: No Packing used?: None
--- NOTE | 2023-01-05 09:23 | NUR.NOTE ---
Accessed pt chart for antibiotic .Nursing Note:
== END 2023-01-03 06:37 | disposition home or self-care (01) ==
PROVIDERS: Emergency Provider Student in an Organized Health Care Education/Training Program
DX: L03.116 Cellulitis of left lower limb (principal); F19.10 Other psychoactive substance abuse, uncomplicated; Z59.00 Homelessness unspecified
CPT/HCPCS: 87077; 99282; 87070; 87186; 87205

== ENCOUNTER 2023-01-05 17:57 | Inpatient (IN) | payer MEDICAID, SELFPAY ==
[2023-01-05 18:06] VITALS: BP 176/116; PULSE 88; RESP 18; TEMP 36.7; O2SAT 98
--- NOTE | 2023-01-05 18:15 | NUR.NOTE ---
Nursing Note: To waiting room post-triage per Keke lopez RN
--- NOTE | 2023-01-05 19:56 | W.ED.GENAD ---
Discharge Plan Discharge Details Chief Complaint: PsychEval Primary Care Provider: Unknown,Unknown ED Provider: Kennedy Moon Home Meds and New Rx's Prescriptions: No Action ibuprofen [Motrin IB] 200 mg tablet 600 mg PO Q6H Qty: 60 0RF clindamycin HCl 300 mg Capsule 600 mg PO Q8H Qty: 0 0RF Medical Decision Making 47yo F with hx of depression and anxiety presenting with suicidal ideation. Not currently on psychiatric medication. SI with thoughts of jumping off a bridge or shooting herself with a gun, these thoughts are conditional surrounding her drug use and when she tries to stop using she feels like she wants to . Denies intent. No evidence of psychosis, insight and judgement seem intact. Vital signs and physical exam reassuring; being treated for skin infection with clindamycin. She feels safe here and denies any intent to act on her thoughts; does not meet EE criteria. May benefit from outpatient resources or inpatient placement. Crisis aware and will see patient. SMART tool completed, urine pending. Sign out to oncoming physician with plan to followup upreg and crisis reccs, disposition pending their evalution. HPI General Mode of arrival: ambulatory. Date/Time Provider Initiated Documentation: 01/05/23 18:18. Limitations to Documentation: no limitations. Information obtained by: patient. HPI Narrative: 47yo F with hx of depression and anxiety presenting with suicidal ideation. Has had thoughts of jumping off a bridge or shooting herself with a gun. She does not have a gun but a friend does. Denies prior suicide attempts. Is currently homeless which is a stressor, struggles with substance use and feels like unless she uses she will want to . No ETOH use. Recent abscess drainage on left ankle, on clindamycin, doing well after the drainage. She is otherwise in her usual state of health with no fevers, chills, nausea, vomiting, abdominal pain, joint pain, or other concerns. Related Data Home Medications Medication Instructions Recorded Confirmed clindamycin HCl 300 mg capsule 600 mg PO Q8H #0 caps 10/03/22 01/05/23 ibuprofen 200 mg tablet (Motrin IB) 600 mg PO Q6H #60 tabs 12/29/22 01/05/23 Previous Rx's Medication Instructions Recorded clindamycin HCl 300 mg capsule 600 mg PO Q8H #0 caps 10/03/22 ibuprofen 200 mg tablet (Motrin IB) 600 mg PO Q6H #60 tabs 12/29/22 Allergies Allergy/AdvReac Type Severity Reaction Status Date / Time diphenhydramine HCl AdvReac paradoxical Verified 01/05/23 18:12 [From Benadryl] stimulant General Stated Complaint: PsychEval CARMINE: 2 Review of Systems Narrative: see HPI PFSH All Active Problems (Updated 01/03/23 @ 06:29 by Aryan Salamanca, DO) Cellulitis of right ankle (Acute) Homeless (Acute) Abscess of skin of right ankle (Acute) Cellulitis of right leg (Acute) IVDU (intravenous drug user) (Acute) Hepatitis C virus infection without hepatic coma (Chronic) Foreign body of neck (Acute) Right side Numbness of left hand (Acute) 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) Bilateral leg weakness (Acute) Smoker (Acute 09/16/13) 0.5 PPD, working with Marianne Fernanda Amphetamine abuse, episodic (Acute 11/14/16) Relapse: Adderal fall 2015 until 10/17/16: Isauro Iraheta identified Attention deficit hyperactivity disorder (ADHD), combined type (Acute 04/23/17) updating diagnosis from ADHD unspecified; screen 03/2017; h/o prior rx Dr [place]; counselor Isauro Iraheta, consult Dr Manuel Anemia (Chronic) Transaminitis (Acute) Neuropathy (Acute) Oral contraception initial prescription (Acute 08/05/11) Opioid dependence on agonist therapy (Acute 06/18/05) Prior dilaudid, heroin, etc.; INDUCTION AT SUBSTANCE TREATMENT 06/2005 ON REFERRAL FROM [facility], COUNSELOR: Isauro Iraheta; MAT team begun 12/2015; problem 11/14/16 (amphetamine use) Opioid dependence, continuous (Acute 06/18/05) INDUCTION AT SUBSTANCE TREATMENT 06/2005 ON REFERRAL FROM [facility], COUNSELLOR: WILLIE Smith [facility]; problematic episode 04/2012 (ritalin misuse) Depressive disorder (Acute 05/22/05) SCREEN ADHD, DR [place] [facility] RITALIN RX; Denisse Sethi 2011 Anxiety disorder (Acute 08/05/11) ?? ADD PIECE: [facility] EVAL 08/2011 Adjustment disorder, unspecified (Acute 03/03/16) Medical History Anxiety Depression Opiate dependence Polysubstance abuse Surgical History History of dilatation and curettage Family History Father Alcohol abuse Mother No problems noted. 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 Lost [facility] license. Has 3 kids in foster care. Exam Narrative Exam Narrative: General: Alert, well appearing, well nourished, in no acute distress. Head: Normocephalic, atraumatic Neck: Trachea midline, Neck supple. ENT: MMM. No oropharygeal lesions or exudate. Cardiac: RRR, no murmurs appreciated Resp: No respiratory distress. CTAB. Abd: Soft, non-distended, nontender Skin: Diffuse scaring consisting with IVDU, skin infections. Left ankle with faint erythema around incision, no palpable fluctuatance, consistent with healing abscess. Extremities: No deformities. No peripheral edema. Neurologic: GCS 15. Moves all extremities freely against gravity Psych: Calm, cooperative, tearful. Mood rough, affect congruent. Speech with soft with normal rate, rythym and tone. Linear and goal directed. + SI, thoughts of taking a friend's gun or jump off a bridge, denies intent. Denies HI/AH/VH. Does not appear to be responding to internal stimuli. Course Vital Signs Vital signs: Vital Signs Temperature 36.7 C 01/05/23 18:06 Pulse 88 01/05/23 18:06 Respiratory Rate 18 01/05/23 18:06 Blood Pressure 176/116 H 01/05/23 18:06 Pulse Oximetry 98 01/05/23 18:06 Temperature 36.7 C 01/05/23 18:06 Temperature Source Skin 01/05/23 18:06 Pulse 88 01/05/23 18:06 Respiratory Rate 18 01/05/23 18:06 Blood Pressure 176/116 H 01/05/23 18:06 Blood Pressure Position Sitting 01/05/23 18:06 Pulse Oximetry 98 01/05/23 18:06 Oxygen Delivery Method Room Air 01/05/23 18:06 Oxygen Flow Rate 0 01/05/23 18:06 Pain Level 6 01/05/23 18:06 Sign Out Sign Out Data: Sign Out Comment: 47yo F presenting with suicidal ideation in the setting of recent social stressors, homeless, struggles with substance use. Able to contract for safety with me. Home meds ordered. Urine pending for medical clearance. Pending eval. Last updated by Ila Gaviria MD at 01/05/23 23:13
[2023-01-05 21:30] VITALS: RESP 14
[2023-01-05] MEDS: Melatonin 3 MG TAB PO (21:40)
[2023-01-05] MEDS: Nicotine 2 MG GUM CH (21:41)
[2023-01-05] MEDS: Clindamycin 150 MG CAP 600 MG PO (23:27)
[2023-01-06] VITALS (62 sets, daily range): BP systolic 113–220; BP diastolic 53–128; PULSE 44–185; RESP 14–36; TEMP 36.6–37.2; O2SAT 98–100
--- NOTE | 2023-01-06 | DI.CT_ITS ---
Exam(s) CT HEAD WO EXAM: CT HEAD WO CLINICAL HISTORY: XIAO, severe HTN, r/o bleed. TECHNIQUE: Imaging Protocol: Axial computed tomography images with coronal and sagittal reformatted images were created and reviewed COMPARISON: CT CT HEAD WO from 01/18/2019 FINDINGS: There are no skull fractures. Again noted is circumferential mucosal thickening in the right maxillar y sinus. There does not appear to be an associated fluid level. The opposite-left maxillary sinus r emains clear. There is some mucosal thickening fluid noted in the left sphenoid sinus. The dominant right sphenoid sinus is clear. Ethmoidal air cells are clear as are the frontal sinuses. Mastoid a ir cells are clear. There is no evidence of intracranial hemorrhage, mass effect, or shift of midline structures. There are no extra-axial fluid collections. The ventricles are not enlarged or shifted and there is no blo od within the ventricular system nor within the basal cisterns. IMPRESSION: No acute intracranial findings on this noninfused CT scan of the brain. Paranasal sinus findings as above. RADIATION DOSE DELIVERED: 708.24mGy.cm Total DLP DATA REPOSITORY: All CT scans at this facility are submitted to the National Radiology Data Registry (NRDR) Dose Index Registry (DIR) with the [employer] (ACR). RADIATION OPTIMIZATION: All CT scans at this facility use at least one of these dose optimization te chniques: automated exposure control; mA and/or kV adjustment per patient size (includes targeted exa ms where dose is matched to clinical indication); or iterative reconstruction.
--- NOTE | 2023-01-06 04:39 | ED.PROG_ITS ---
Date of service: 01/06/23 Time of Service: 04:39 Medical Decision Making I, Kennedy Moon, took signout on this patient. In summary 47-year-old female with drug addiction including meth and what ever other drugs can get her hands on presents with suicidal ideation. Seen by [facility]. They would consider voluntary bed search. Patient is reporting significant withdrawal symptoms and they want her seen by [facility] first as a think that this is the primary cause of most of her problems. Paged [facility] a couple times through the evening. They have not responded yet. Still pending a urine test. I, Kennedy Moon, have signed out care to the oncoming team pending [facility] evaluation, crisis reevaluation and urine test. Medical Records Medical records reviewed: Yes I reviewed the patient's medical records. Sign Out Sign Out Data: Sign Out Comment: 47yo F presenting with suicidal ideation in the setting of recent social stressors, homeless, struggles with substance use. Able to contract for safety with me. Home meds ordered. Urine pending for medical clearance. Pending onelia. Last updated by Ila Gaviria MD at 01/05/23 23:13 Discharge Plan Discharge Details Chief Complaint: PsychEval Primary Care Provider: Unknown,Unknown ED Provider: Kennedy Moon Home Meds and New Rx's Prescriptions: No Action ibuprofen [Motrin IB] 200 mg tablet 600 mg PO Q6H Qty: 60 0RF clindamycin HCl 300 mg Capsule 600 mg PO Q8H Qty: 0 0RF
--- NOTE | 2023-01-06 07:46 | NUR.NOTE ---
Nursing Note: pt has stated she is withdrawing from Fentanyl, symptoms are hot and clammy. aware
[2023-01-06] MEDS: cloNIDine 0.1 MG PATCH TD (08:14)
[2023-01-06] MEDS: Clindamycin 150 MG CAP 600 MG PO ×3 (08:14→23:04)
[2023-01-06] MEDS: Nicotine 2 MG GUM CH (08:16)
--- NOTE | 2023-01-06 10:04 | NUR.NOTE ---
Nursing Note: Received report from Farideh CANDELARIO; assumed care of patient at this time.
[2023-01-06] MEDS: Ondansetron O.D.T. 4 MG TABEF PO (10:10)
--- NOTE | 2023-01-06 11:07 | ED.PROG_ITS ---
Date of service: 01/06/23 Time of Service: 11:07 Medical Decision Making Patient was signed out to me by my colleague Dr. Moon. Please refer to his HPI, physical exam, assessment plan. We are pending mental health reassessment. Mental health has reassessed the patient and do not feel that she is safe for discharge. Patient still has active thoughts of suicidality. I did go and reassess the patient and the patient agrees with this plan. On review of her leg there is notable improvement of her leg. No redness or erythema as there was before. Is notably diminished compared to the prior few exams when she was here for medical reasons. Small amount of edema in the ankle still secondary to her chronic lymphedema and compounded by the infection. On exam patient denies any significant pain in the ankle itself with movement. Symptoms inconsistent with a septic joint. No tachycardia or fever here. She is still taking the clindamycin. Patient stable for admission. Discussed the case with Dr. Perla the hospitalist. I have extensively reviewed the treatment plan with the patient. I have addressed all patient concerns at this time. I have also discussed the plan with the admitting physician and they agree with the current assessment and plan and have agreed to assume responsibility for the patient. All parties demonstrate verbal understanding and agreement with our assessment and plan at this time. The documentation in this chart was dictated using [employer] dictation software. Please excuse any dictation errors. I will place bridging orders on her behalf at her request. Sign Out Sign Out Data: Sign Out Comment: 47yo F presenting with suicidal ideation in the setting of recent social stressors, homeless, struggles with substance use. Able to contract for safety with me. Home meds ordered. Urine pending for medical clearance. Pending eval. Last updated by Ila Gaviria MD at 01/05/23 23:13 Sign Out Comment: Crisis has seen. Would consider voluntary bedsearch. They want her seen by [facility]. They have been paged. Urine pregnacy test still pending. Last updated by Kennedy Moon MD at 01/06/23 04:43 Discharge Plan Disposition Patient Disposition: Admit to [facility] Condition: Improving Discharge Details Chief Complaint: PsychEval Clinical Impression: At risk for suicide Primary Care Provider: Unknown,Unknown ED Provider: [place],Aryan R Home Meds and New Rx's Prescriptions: No Action ibuprofen [Motrin IB] 200 mg tablet 600 mg PO Q6H Qty: 60 0RF clindamycin HCl 300 mg Capsule 600 mg PO Q8H Qty: 0 0RF
[2023-01-06] MEDS: diazePAM 5 MG TAB PO (11:24)
[2023-01-06] MEDS: Melatonin 3 MG TAB 6 MG PO (11:24)
--- NOTE | 2023-01-06 11:25 | PDOC.CMSAFE ---
Date of service: 01/06/23 Time of Service: 11:26 Care Management Safety Plan Status Status: Voluntary Reason for Wait Reason for Wait: Inpatient Admission Safety Plan Safety Plan: VOLUNTARY FOR INPATIENT PSYCHIATRIC STABILIZATION.? Patient is appropriate in all interactions since arriving at [facility]; Pt has demonstrated appropriate coping and communication skills, has articulated his or her needs and concerns and is fully engaged during staff interactions. Safety plan has been established with patient, and care team, to adhere to patient goals, identify restrictions based on behavioral status, address nutrition, and determine allowed personal belongings, tools for hygiene and personal care. Determine level of activity including ambulation, level of supervision, visitors, and determine privileges based on behaviors and level of engagement by pt. SAFETY PLAN: 1. Will remain on suicide precautions. In Paper Clothes 2. Will remain in room under direct supervision of one-on-one staff at all times provided by [employer]PS[employer], OCEAN LIFEGUARD SPECIALIST, INFORMATION LEAD rock climbing instructor. 3. May have paper cups, plates, finger foods as well as a cardboard spoon with which to eat meals. 4. Follow [facility] Management of the Admitted Behavioral Health Patient policy. 5. Comfort bath system only, shower permitted with escort at RN discretion. 6. No personal belongings-soft items permitted at RN discretion. 7. Visitors-none at this time. 8. Activities: soft cart items approved per RN discretion. 9.? Bathroom privileges with escort in the ED, available in room without limitation on M/S. 10. Phone: may use [employer] phone at RN discretion. 11. Due to VOLUNTARY status, if patient wishes to leave [facility], staff will contact [facility] Crisis Screener ([phone]) and On-Call Forepart [facility] ([phone]) as soon as possible. In the event of elopement, notify [facility] Police ([phone]). Patient is currently voluntarily at [facility] and seeking inpatient admission when a bed becomes available. [facility] Frontline Electrolytic Etcher will continue seeking placement. Please contact the Saw Straightener Forepart [place] ([phone]) and [facility] Electrolytic Etcher ([phone]) for any needed changes in the Safety Plan. Safety plan has been provided to interdepartmental care team.
--- NOTE | 2023-01-06 11:35 | NUR.NOTE ---
Nursing Note: Dr Salamanca notified of patient's high blood pressure; pt states this is normal for her to have high blood pressure; she sates she does not taken BP meds. No new orders at this time. Will re-assess.
--- NOTE | 2023-01-06 11:56 | NUR.NOTE ---
Nursing Note: Report called to Lyly CANDELARIO. Pt will be going to 234 shortly.
--- NOTE | 2023-01-06 12:39 | HPE_ITS ---
Date of service: 01/06/23 Time of Service: 12:39 Assessment and Plan Assessment and plan (1) Opioid dependence, continuous: Status: Acute Assessment and plan: UDS pending Urine HCG pending CBC CMP acetaminophen salicylates pending Lorazepam, clonidine, hydralazine, hydroxyzine, amlodipine for HTN in setting of withdrawal from opiods Continue to monitor for respiratory depression. PRN naloxone ordered. (2) Cellulitis of right ankle: Status: Acute Assessment and plan: Healing, continue outpt Clindamycin Assess daily (3) IVDU (intravenous drug user): Status: Acute Assessment and plan: Multiple BLE scars and edema Multipe BUE scars and recent evidence of IVDA - admits to injecting fentanyl as recent as yesterday Patient is willing to go to rehab for opiate dependency (4) Hepatitis C virus infection without hepatic coma: Status: Chronic Assessment and plan: Precautions (5) Discharge planning issues: Status: Deleted Assessment and plan: Placement, rehab History of Present Illness History of Present Illness Chief Complaint: Suicidal ideation Narrative: This is a 47 year old female patient with past medical history of depression, anxiety, recent social stressors, substance abuse, chronic bilateral lower extremity lymphedema, current treatment for left ankle cellulitis from IVDA and homeless who presented to the [facility] ED on 01/06 with complaints of wanting to jump off of a bridge or shoot herself with a gun. She does not take any psychiatric medications. She admits to cocaine and injecting fentanyl as recently as yesterday. She states in the past she has injected Wellbutrin and adderal into her lower legs. Lower legs are scarred and chronically edematous. She has no evidence of psychosis. She is currently taking Clindamycin for cellulitis. She was evaluated by mental health, they do not feel she is safe or suitable to be discharged. She does not meet EE criteria. No diagnostic testing was performed in the ED. She is waiting for placement and was placed on the medical floor for observation with a 1:1 attendant. She is a full code. 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) Bilateral leg weakness (Acute) Smoker (Acute 09/16/13) 0.5 PPD, working with Marianne Fernanda Amphetamine abuse, episodic (Acute 11/14/16) Relapse: Adderal fall 2015 until 10/17/16: Isauro Iraheta identified Attention deficit hyperactivity disorder (ADHD), combined type (Acute 04/23/17) updating diagnosis from ADHD unspecified; screen 03/2017; h/o prior rx Dr [place]; counselor Isauro Iraheta, consult Dr Manuel Anemia (Chronic) Transaminitis (Acute) Neuropathy (Acute) Oral contraception initial prescription (Acute 08/05/11) Opioid dependence on agonist therapy (Acute 06/18/05) Prior dilaudid, heroin, etc.; INDUCTION AT SUBSTANCE TREATMENT 06/2005 ON REFERRAL FROM [facility], COUNSELOR: Isauro Iraheta; MAT team begun 12/2015; problem 11/14/16 (amphetamine use) Opioid dependence, continuous (Acute 06/18/05) INDUCTION AT SUBSTANCE TREATMENT 06/2005 ON REFERRAL FROM [facility], COUNSELLOR: WILLIE Smith [facility]; problematic episode 04/2012 (ritalin misuse) Depressive disorder (Acute 05/22/05) SCREEN ADHD, DR [place] [facility] RITALIN RX; Denisse Sethi 2011 Anxiety disorder (Acute 08/05/11) ?? ADD PIECE: [facility] EVAL 08/2011 Adjustment disorder, unspecified (Acute 03/03/16) Medical History Anxiety Depression Opiate dependence Polysubstance abuse Surgical History History of dilatation and curettage Family History Father Alcohol abuse Mother No problems noted. 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 Lost [facility] license. Has 3 kids in foster care. Meds Allergies and Home Medications Allergies Allergy/AdvReac Type Severity Reaction Status Date / Time diphenhydramine HCl AdvReac paradoxical Verified 01/05/23 18:12 [From Benadryl] stimulant Home Medications Medication Instructions Recorded Confirmed Type clindamycin HCl 300 mg capsule 600 mg PO Q8H #0 caps 10/03/22 01/05/23 Rx ibuprofen 200 mg tablet (Motrin IB) 600 mg PO Q6H #60 tabs 12/29/22 01/05/23 Rx Exam Narrative Exam Narrative: Exam Narrative: General: Alert, ill appearing, well nourished, in no acute distress. Head: Normocephalic, atraumatic Neck: Trachea midline,? Neck supple. ENT:? MMM.? No oropharygeal lesions or exudate. Cardiac:? RRR, no murmurs appreciated Resp: No respiratory distress. CTAB. Abd:? Soft, non-distended, nontender Skin: Diffuse scaring consisting with IVDU, skin infections.? Left ankle with faint erythema around incision, no palpable fluctuatance, consistent with healing abscess. BLE severely scarred Extremities:? No deformities.? Some non pitting BLE peripheral edema. Neurologic: GCS 15. ? Moves all extremities freely against gravity Psych: Calm, cooperative, tearful. ?Flat affect congruent.? Speech with soft w ith normal rate, rhythm and tone. Linear and goal directed.? + SI, thoughts of taking a friend's gun or jump off a bridge.? Denies HI, auditory or visual hallucinations. Results Labs 01/06/23 17:10 01/07/23 07:45 Last Vital Signs Temp 37.0 C 01/06/23 12:06 Pulse 48 L 01/06/23 12:06 Resp 17 01/06/23 12:06 BP 172/104 H 01/06/23 12:06 Pulse Ox 99 01/06/23 12:06 Time Spent Time spent with Patient: 55-74 minutes Time was spent: preparing to see the patient(eg.review tests), obtaining and/or reviewing separately otained hiistory, ordering medications,tests, procedures, referring, communicating with other health campground caretaker, indepentently interpreting results, counseling the patient and care coordination
[2023-01-06] MEDS: cloNIDine 0.1 MG TAB PO ×2 (13:41→16:46)
[2023-01-06] MEDS: Zolpidem 10 MG TAB PO ×2 (13:41→23:04)
--- NOTE | 2023-01-06 13:52 | MHPN_ITS ---
Date of service: 01/06/23 Time of Service: 13:53 Mental Health Emergency Note Release [facility] release signed:: Yes Reason for Visit The client came in to the ED via herself expressing substance abuse issues and wanting to quit, homelessness, and reporting SI. The client was initially screened by [facility] Jessica and held on a voluntary basis. The client was rescreened today face to face in the ED. [facility] intake was completed. In the last 2 weeks has the pt presented for ES prior to today?: Unknown Impression The client is a 47 year old, Single female who is homeless in [facility]. She presented to the ED on 01.05 with SI, homelessness and substance abuse issues. She has met with [employer] and left a message with [employer] but was unable to connect with [employer]. She is seeking help for co-occurring. The client stated that she needs help with her mental health issues, as well as her substance abuse issues. The client self reported her risk if she left without being in treatment a 11/15. She reported that she had a loaded gun in her possession yesterday and thought about shooting herself. She abandoned that thought because she had other people around her. She noted she is rarely alone. She has also thought of othre plans like jumping off a bridge I don't think I have the balls to do that. When asked if she could follow through with shooting herself she responded I don't know. She does not have access to that gun any longer and reported that she does have access to drugs. She reported use of Fentanyl, heroin, crack, whatever I can get my hands on...pills. It is not clear how she pays for these drugs as she has no income. She reported her natural supports are her sister, AA sponsor, and children who she also notes are in [facility] custody. She enjoys and is good at [employer] and [employer]. She has no history of hospitalizations but has been in residential in the past. The client presents lying in bed when this clinician arrived however, quickly sat up and engaged in the assessment. She made moderate eye contact. She appeared and expressed feel like shit and actively detoxing. She is disheveled and unable to sit quietly in her bed. She shows fair insight and judgment. She is seeking a voluntary inpatient stay to treat both her [place] and [place] issues/symptoms. It is important to note that the client has a large ulcer type thing on her left foot which she stated is a result of shooting up Welbutrin years ago. Plan/Disposition Recommended Disposition: Hospitalization facilities contacted. Plan: The client will remain at [facility] and be assessed daily by [facility] until placed. Person reported agreement to plan: Yes Facilities contacted if Applicable [facility] Not accepted, No bed available [facility] Not accepted, No bed available [facility], [facility], (reviewing) Other Reports/communication Outcome discussed with: ED/Personnel
[2023-01-06] MEDS: LORazepam 1 MG TAB PO (15:16)
[2023-01-06] MEDS: hydrOXYzine HCL 25 MG TAB PO (15:17)
[2023-01-06 17:26] LABS: Abs Immature Grans 0.03 10^3/uL (0.0-0.06); Absolute Basophil Count 0.03 10^3/uL (0.0-0.2); Absolute Eosinophil Count 0.09 10^3/uL (0.0-0.7); Absolute Lymphocyte Count 1.78 10^3/uL (1.2-3.4); Absolute Monocyte Count 0.25 10^3/uL (0.1-0.8); Absolute Neutrophil Count 4.33 10^3/uL (1.2-6.7); Basophils % 0.5; Eosinophils % 1.4; HCT 32.7 % (36.0-46.0); Immature Grans % 0.5; Lymphocytes % 27.3; MCH 24.3 pg (27.0-33.0); MCHC 30.6 % (32.0-36.0); MCV 79 fL (80-95); MPV 8.2 fL (8.0-11.0); Monocytes % 3.8; Neutrophils % 66.5; Platelet Count 596 10^3/uL (130-400); RBC 4.12 10^6/uL (3.93-5.22); RDW 17.3 % (11.7-14.6); RDW-SD 49.9 fL; WBC 6.51 10^3/uL (4.4-10.8)
[2023-01-06] MEDS: amLODIPine 5 MG TAB PO (17:36)
[2023-01-06] MEDS: hydrALAZINE 20 MG/ML VIAL 5 MG IVP (17:37)
[2023-01-06] MEDS: Normal Saline Flush 10 ML SYR IVP (17:38)
[2023-01-06 18:07] LABS: ALT 22 U/L (14-59); AST 47 U/L (15-37); Albumin 2.6 g/dL (3.4-5.0); Alkaline Phosphatase 160 U/L (46-116); Anion Gap 5.2 mmol/L (3-11); BUN 17 mg/dL (7-18); Bilirubin, Total 0.3 mg/dL (0.2-1.0); CO2 30.8 mmol/L (21.0-32.0); Chloride 101 mmol/L (98-107); Glucose 94 mg/dL (74-106); Potassium 4.7 mmol/L (3.5-5.1); Sodium 137 mmol/L (136-145); Total Protein 8.1 g/dL (6.4-8.2)
[2023-01-06 18:29] LABS: HCG Qual (Urine) Negative
[2023-01-06 18:37] LABS: Salicylate 3.2 mg/dL (<2.8)
[2023-01-06 18:38] LABS: Acetaminophen < 2 ug/mL (10-30)
[2023-01-06 18:40] LABS: *AMPHETAMINES SCREEN URINE Negative (Negative); *BARBITURATES SCREEN URINE Negative (Negative); *BENZODIAZEPINES SCREEN URINE Positive (Negative); Cannabinoids THC Positive (Negative); Cocaine Screen,Urine Positive (Negative); METHADONE URINE SCREEN Negative (Negative); OPIATES URINE SCREEN Negative (Negative)
[2023-01-06 18:43] LABS: Tricyclic Antidepressants Negative (Negative)
--- NOTE | 2023-01-06 19:45 | RT.EKG_ITS ---
APPROVED REPORT Exam: Resting ECG Reason for Exam: severe HTN, cocaine use Patient Location: I HR:53 bpm ECG Measurements Heart Rate 53 AXIS IA 116 P 66 QRSd 83 QRS 63 QT 491 T 57 QTc 461 Conclusion Sinus rhythm...normal P axis, V-rate 50- 99 Borderline short IA interval...IA int <120mS Probable left atrial enlargement...P >50mS, <-0.10mV V1 RSR' in V1 or V2, probably normal variant...small R' only Probable left ventricular hypertrophy...multiple LVH criteria
--- NOTE | 2023-01-06 19:58 | NUR.NOTE ---
Pt alert laying in bed. Bp elevated 230/128 pulse 52 at rest. Called MD camera control operator . New orders received. Nursing Note:
[2023-01-06] MEDS: cloNIDine 0.1 MG TAB 0.2 MG PO (20:05)
[2023-01-06 20:30] LABS: Troponin I < 50 ng/L (<or=60)
[2023-01-06 20:47] LABS: Bilirubin Negative (Negative); Blood Negative (Negative); Clarity Clear (Clear); Glucose Negative (Negative); Ketones Negative (Negative); Leukocyte Esterase Negative (Negative); Nitrite Negative (Negative); Urobilinogen 0.2 mg/dL (Up to 0.2)
--- NOTE | 2023-01-06 21:05 | W.PM.PROGNOT ---
Date of Service Date of service: 01/06/23 Time of Service: 21:05 Subjective Subjective Interval history since last seen: Asked to evaluate patient for persistently elevated blood pressure. Reports continued chest pain and headache. Lab evaluation reveals recent cocaine ingestion. Reviewed her EKG which shows changes consistent with LVH but no evidence of acute ischemia. Troponin is negative. Urinalysis is pending. There is no murmur or gallop on exam and her lungs are clear. Given her persistently elevated SBP after receiving multiple agents, will transfer to ICU for nicardipine drip and obtain CT head given her headache and markedly elevated blood pressure. Objective Last Vital Signs Temp 36.8 C 01/06/23 17:34 Pulse 55 L 01/06/23 18:23 Resp 24 01/06/23 16:21 BP 215/110 H 01/06/23 20:57 Pulse Ox 100 01/06/23 18:23 Laboratory Results - last 24 hr 01/06/23 01/06/23 01/06/23 17:10 17:10 17:10 WBC 6.51 RBC 4.12 Hgb 10.0 L Hct 32.7 L MCV 79 L MCH 24.3 L MCHC 30.6 L RDW 17.3 H Plt Count 596 H MPV 8.2 Immature Gran % 0.5 Neutrophils % 66.5 Lymphocytes % 27.3 Monocytes % 3.8 Eosinophils % 1.4 Basophils % 0.5 Nucleated RBC % 0.0 Absolute Neutrophils 4.33 Absolute Lymphocytes 1.78 Absolute Monocytes 0.25 Absolute Eosinophils 0.09 Absolute Basophils 0.03 Sodium 137 Potassium 4.7 Chloride 101 Carbon Dioxide 30.8 Anion Gap 5.2 BUN 17 Creatinine 1.0 Est GFR (CKD-EPI 2020) 70.80 Glucose 94 Calcium 9.0 Total Bilirubin 0.3 AST 47 H ALT 22 Alkaline Phosphatase 160 H Troponin I Total Protein 8.1 Albumin 2.6 L Urine Color Urine Clarity Urine pH Ur Specific [place] Urine Protein Urine Ketones Urine Blood Urine Nitrite Urine Bilirubin Urine Urobilinogen Ur Leukocyte Esterase Urine Glucose Urine HCG, Qual Salicylates 3.2 Urine Opiates Screen Urine Methadone Screen Acetaminophen < 2 Ur Barbiturates Screen Ur Tricyclics Screen Ur Amphetamines Screen U Benzodiazepines Scrn Urine Cocaine Screen Ur THC Screen 01/06/23 01/06/23 01/06/23 17:10 18:06 18:06 WBC RBC Hgb Hct MCV MCH MCHC RDW Plt Count MPV Immature Gran % Neutrophils % Lymphocytes % Monocytes % Eosinophils % Basophils % Nucleated RBC % Absolute Neutrophils Absolute Lymphocytes Absolute Monocytes Absolute Eosinophils Absolute Basophils Sodium Potassium Chloride Carbon Dioxide Anion Gap BUN Creatinine Est GFR (CKD-EPI 2020) Glucose Calcium Total Bilirubin AST ALT Alkaline Phosphatase Troponin I < 50 Total Protein Albumin Urine Color Urine Clarity Urine pH Ur Specific [place] Urine Protein Urine Ketones Urine Blood Urine Nitrite Urine Bilirubin Urine Urobilinogen Ur Leukocyte Esterase Urine Glucose Urine HCG, Qual Negative Salicylates Urine Opiates Screen Negative Urine Methadone Screen Negative Acetaminophen Ur Barbiturates Screen Negative Ur Tricyclics Screen Negative Ur Amphetamines Screen Negative U Benzodiazepines Scrn Positive A Urine Cocaine Screen Positive A Ur THC Screen Positive A 01/06/23 18:06 WBC RBC Hgb Hct MCV MCH MCHC RDW Plt Count MPV Immature Gran % Neutrophils % Lymphocytes % Monocytes % Eosinophils % Basophils % Nucleated RBC % Absolute Neutrophils Absolute Lymphocytes Absolute Monocytes Absolute Eosinophils Absolute Basophils Sodium Potassium Chloride Carbon Dioxide Anion Gap BUN Creatinine Est GFR (CKD-EPI 2020) Glucose Calcium Total Bilirubin AST ALT Alkaline Phosphatase Troponin I Total Protein Albumin Urine Color Yellow Urine Clarity Clear Urine pH 7.0 Ur Specific [place] 1.020 Urine Protein Negative Urine Ketones Negative Urine Blood Negative Urine Nitrite Negative Urine Bilirubin Negative Urine Urobilinogen 0.2 Ur Leukocyte Esterase Negative Urine Glucose Negative Urine HCG, Qual Salicylates Urine Opiates Screen Urine Methadone Screen Acetaminophen Ur Barbiturates Screen Ur Tricyclics Screen Ur Amphetamines Screen U Benzodiazepines Scrn Urine Cocaine Screen Ur THC Screen Time Spent with Patient Time Spent with Patient: <25 minutes Time was spent: indepentently interpreting results
[2023-01-06] MEDS: Melatonin 3 MG TAB 9 MG PO (21:20)
--- NOTE | 2023-01-06 21:47 | NUR.NOTE ---
gave report to Miguel isabel in ICU. Transferred via wc. Is Alert and orientated x4. transferred to room 222Nursing Note:
--- NOTE | 2023-01-06 21:56 | DI.VRAD_ITS ---
PROCEDURE INFORMATION: Exam: CT Head Without Contrast Exam date and time: 01/06/2023 9:33 PM Age: 47 years old Clinical indication: Pain; Headache not specified; Patient HX: XIAO, severe HTN, R/O bleed TECHNIQUE: Imaging protocol: Computed tomography of the head without contrast. Radiation optimization: All CT scans at this facility use at least one of these dose optimization techniques: automated exposure control; mA and/or kV adjustment per patient size (includes targeted exams where dose is matched to clinical indication); or iterative reconstruction. COMPARISON: CT HEAD WO 01/18/2019 3:41 PM FINDINGS: Brain: Cerebral sulci show bilateral symmetry with no supratentorial mass or mass effect detected. Brainstem and cerebellum are unremarkable. There is no evidence of acute transcortical infarction or recent intracranial hemorrhage. Cerebral ventricles: Ventricular and cisternal spaces are normal in size and configuration and there is no midline shift or hydrocephalus seen. Paranasal sinuses: Mucosal disease is again seen along the margins of the right maxillary sinus and involving the smaller left-sided sphenoidal air cell. Mastoid air cells: Grossly clear bilaterally. Bones/joints: Bony calvarium and skull base are intact and no acute fractures are detected. Soft tissues: Unremarkable. IMPRESSION: No evidence of acute transcortical infarction, recent intracranial hemorrhage or hydrocephalus. No acute intracranial process is detected. Dictated and Authenticated by: Ariel Munoz MD. Ordering:GRICELDA Snyder MD
[2023-01-06] MEDS: niCARdipine 25 MG in Normal Saline 240 ML 50 MG IV (22:18)
[2023-01-07] VITALS (85 sets, daily range): BP systolic 123–160; BP diastolic 73–95; PULSE 42–81; RESP 14–38; TEMP 36.6–37.4; O2SAT 98–100
[2023-01-07] MEDS: LORazepam 1 MG TAB PO ×2 (03:28→09:28)
[2023-01-07] MEDS: hydrOXYzine HCL 25 MG TAB PO (03:28)
[2023-01-07] MEDS: Ondansetron O.D.T. 4 MG TABEF PO (05:45)
--- NOTE | 2023-01-07 08:15 | RT.EKG_ITS ---
APPROVED REPORT Exam: Resting ECG Reason for Exam: Tall T wave Patient Location: I HR:49 bpm ECG Measurements Heart Rate 49 AXIS AR 109 P 70 QRSd 81 QRS 74 QT 524 T 74 QTc 474 Conclusion Sinus bradycardia...rate< 50 Short AR interval...AR <110mS RSR' in V1 or V2, probably normal variant...small R' only Left ventricular hypertrophy...multiple voltage criteria ST elev, probable normal early repol pattern...ST elevation, age<55 Tall T waves suggest hyperkalemia...widespread tall T Since previous T waves are more peaked and prominent
--- NOTE | 2023-01-07 08:35 | W.PM.PROGNOT ---
Date of Service Date of service: 01/07/23 Time of Service: 11:18 Subjective Subjective Interval history since last seen: Patient is medically cleared. Objective Last Vital Signs Temp 37.4 C 01/07/23 08:04 Pulse 54 L 01/07/23 08:04 Resp 27 H 01/07/23 08:04 BP 153/95 H 01/07/23 08:04 Pulse Ox 100 01/07/23 08:04 Laboratory Results - last 24 hr 01/06/23 01/06/23 01/06/23 17:10 17:10 17:10 WBC 6.51 RBC 4.12 Hgb 10.0 L Hct 32.7 L MCV 79 L MCH 24.3 L MCHC 30.6 L RDW 17.3 H Plt Count 596 H MPV 8.2 Immature Gran % 0.5 Neutrophils % 66.5 Lymphocytes % 27.3 Monocytes % 3.8 Eosinophils % 1.4 Basophils % 0.5 Nucleated RBC % 0.0 Absolute Neutrophils 4.33 Absolute Lymphocytes 1.78 Absolute Monocytes 0.25 Absolute Eosinophils 0.09 Absolute Basophils 0.03 Sodium 137 Potassium 4.7 Chloride 101 Carbon Dioxide 30.8 Anion Gap 5.2 BUN 17 Creatinine 1.0 Est GFR (CKD-EPI 2020) 70.80 Glucose 94 Calcium 9.0 Total Bilirubin 0.3 AST 47 H ALT 22 Alkaline Phosphatase 160 H Troponin I Total Protein 8.1 Albumin 2.6 L Urine Color Urine Clarity Urine pH Ur Specific [place] Urine Protein Urine Ketones Urine Blood Urine Nitrite Urine Bilirubin Urine Urobilinogen Ur Leukocyte Esterase Urine Glucose Urine HCG, Qual Salicylates 3.2 Urine Opiates Screen Urine Methadone Screen Acetaminophen < 2 Ur Barbiturates Screen Ur Tricyclics Screen Ur Amphetamines Screen U Benzodiazepines Scrn Urine Cocaine Screen Ur THC Screen 01/06/23 01/06/23 01/06/23 17:10 18:06 18:06 WBC RBC Hgb Hct MCV MCH MCHC RDW Plt Count MPV Immature Gran % Neutrophils % Lymphocytes % Monocytes % Eosinophils % Basophils % Nucleated RBC % Absolute Neutrophils Absolute Lymphocytes Absolute Monocytes Absolute Eosinophils Absolute Basophils Sodium Potassium Chloride Carbon Dioxide Anion Gap BUN Creatinine Est GFR (CKD-EPI 2020) Glucose Calcium Total Bilirubin AST ALT Alkaline Phosphatase Troponin I < 50 Total Protein Albumin Urine Color Urine Clarity Urine pH Ur Specific [place] Urine Protein Urine Ketones Urine Blood Urine Nitrite Urine Bilirubin Urine Urobilinogen Ur Leukocyte Esterase Urine Glucose Urine HCG, Qual Negative Salicylates Urine Opiates Screen Negative Urine Methadone Screen Negative Acetaminophen Ur Barbiturates Screen Negative Ur Tricyclics Screen Negative Ur Amphetamines Screen Negative U Benzodiazepines Scrn Positive A Urine Cocaine Screen Positive A Ur THC Screen Positive A 01/06/23 18:06 WBC RBC Hgb Hct MCV MCH MCHC RDW Plt Count MPV Immature Gran % Neutrophils % Lymphocytes % Monocytes % Eosinophils % Basophils % Nucleated RBC % Absolute Neutrophils Absolute Lymphocytes Absolute Monocytes Absolute Eosinophils Absolute Basophils Sodium Potassium Chloride Carbon Dioxide Anion Gap BUN Creatinine Est GFR (CKD-EPI 2020) Glucose Calcium Total Bilirubin AST ALT Alkaline Phosphatase Troponin I Total Protein Albumin Urine Color Yellow Urine Clarity Clear Urine pH 7.0 Ur Specific [place] 1.020 Urine Protein Negative Urine Ketones Negative Urine Blood Negative Urine Nitrite Negative Urine Bilirubin Negative Urine Urobilinogen 0.2 Ur Leukocyte Esterase Negative Urine Glucose Negative Urine HCG, Qual Salicylates Urine Opiates Screen Urine Methadone Screen Acetaminophen Ur Barbiturates Screen Ur Tricyclics Screen Ur Amphetamines Screen U Benzodiazepines Scrn Urine Cocaine Screen Ur THC Screen Time Spent with Patient Time Spent with Patient: <25 minutes Time was spent: preparing to see the patient(eg.review tests), obtaining and/or reviewing separately otained hiistory, ordering medications,tests, procedures, referring, communicating with other health career based intervention coordinator, indepentently interpreting results and care coordination
[2023-01-07 08:40] LABS: ALT 19 U/L (14-59); AST 22 U/L (15-37); Albumin 2.9 g/dL (3.4-5.0); Alkaline Phosphatase 157 U/L (46-116); Anion Gap 9.6 mmol/L (3-11); BUN 11 mg/dL (7-18); Bilirubin, Total 0.5 mg/dL (0.2-1.0); CO2 29.4 mmol/L (21.0-32.0); Calcium 9.4 mg/dL (8.5-10.1); Chloride 100 mmol/L (98-107); Glucose 120 mg/dL (74-106); Potassium 4.3 mmol/L (3.5-5.1); Sodium 139 mmol/L (136-145); Troponin I < 50 ng/L (<or=60)
[2023-01-07] MEDS: Clindamycin 150 MG CAP 600 MG PO (09:03)
[2023-01-07 09:26] LABS: Source Nasal/Nares
[2023-01-07] MEDS: Ibuprofen 600 MG TAB PO (09:27)
[2023-01-07 10:00] LABS: COVID-19 PCR Negative (Negative)
[2023-01-07] MEDS: Nicotine 2 MG GUM CH (10:35)
[2023-01-07] MEDS: Nicotine 14 MG/24 HR PATCH TD (10:38)
--- NOTE | 2023-01-07 11:57 | PDOC.MHPN2 ---
Date of service: 01/07/23 Time of Service: 11:57 Mental Health Emergency Note Release [facility] release signed:: Yes Reason for Visit The client came in to the ED on 01.06.2023 via herself expressing substance abuse issues and wanting to quit, homelessness, and reporting SI. The client was initially screened by [facility] Jessica and held on a voluntary basis. The client was rescreened today face to face in the ICU. In the last 2 weeks has the pt presented for ES prior to today?: Unknown Impression The client is a 47 year old, Single female who is homeless in [facility]. She presented to the ED on 01.05 with SI, homelessness and substance abuse issues. She has met with [employer] and left a message with [email or web address] but was unable to connect with [employer]. She is seeking help for co-occurring. The client stated that she needs help with her mental health issues, as well as her substance abuse issues. The client again, self reported her risk if she left without being in treatment a 11/15. She reported this was due to the detoxing she is experiencing. I am craving. The client reported poor sleep due to the cravings and said she ate some of her breakfast. the client stated she wants help. Although she wanted to leave this morning when she spoke with this clinician she was willing to stay. Within an hour she was demanding to leave again and eventually eloped from the hospital. Plan/Disposition Recommended Disposition: Hospitalization (Client eloped. ) facilities contacted. Plan: Client can outreach if she decides she wants to seek treatment again. At this time there is no follow up due to the client not having access to a phone, email or professionals. Reports/communication Outcome discussed with: ED/Personnel
--- NOTE | 2023-01-07 12:47 | DSE_ITS ---
Date of service: 01/07/23 Time of Service: 12:48 DS: Diagnosis Discharge Diagnosis (1) Suicidal ideation: Status: Acute (2) Hypertensive urgency: Status: Acute (3) Opioid withdrawal: Status: Acute (4) Cocaine withdrawal: Status: Acute (5) Cellulitis of right ankle: Status: Acute (6) Opioid dependence, continuous: Status: Acute (7) IVDU (intravenous drug user): Status: Acute (8) Polysubstance abuse: (9) Hepatitis C virus infection without hepatic coma: Status: Chronic (10) Depression: (11) Anxiety: Discharge Plan Disposition Patient Disposition: Against Medical Advice Condition: Fair Discharge Details Reason For Visit: Depression Admit Date/Time: 01/06/23 11:05 Admit Provider: Estelita Perla Attending Provider: Estelita Perla Primary Care Provider: Unknown,Unknown Hospital Course Hospital Course: Ms Bass is a 47 year old female with PMHx of IVD use, polysubstance abuse, depression, anxiety, who is on antibiotics for RLE cellulitis, who was a patient on [facility] hospitalist service from 01/06/23 until 01/07/23, presenting with suicidal ideation, verbalizing a plan to kill herself with a gun. The patient arrived hypertensive and, despite oral and intravenous therapies on the medical surgical floor, remained hypertensive to the point that she required transfer to the ICU. The BP was as high as 220/105. The patient did have chest pain and ruled out for ACS. She had a headache and had a negative CT head with the exception of apparent mucosal thickening in the right maxillary and left sphenoid sinus. The patient was treated with clonidine, amlodipine, IV hydralazine, but ultimately did require cardene gtt in the ICU. As off this morning, she had gotten off of the cardene and her SBPs were in 150s. She did show evidence of both intoxication with cocaine as well as withdrawal for opioids and cocaine, explaining her hypertension. She was evaluated by mental health who felt the patient would be appropriate for voluntary psychiatric hospitalization. However, the patient verbalized a strong desire to leave AMA this morning. She had stated that the gun belonged to her friend and she did not, in fact, have access to it. Mental health was made aware of the patient's willingness to leave and stated that she would not meet involuntary status. The patient did verbalize understanding that she is leaving AMA. She did verbalize knowing how to ask for help if she felt suicidal again, reciting a 211 number and knowing to come back to the hospital. The patient did verbalize that she wanted to leave so that she could smoke and use drugs. She remained on her antibiotics for the cellulitis of her ankle. Care for patient as well as completion of her discharge summary took 25 minutes on the day of discharge. Home Meds and New Rx's Prescriptions: No Action ibuprofen [Motrin IB] 200 mg tablet 600 mg PO Q6H Qty: 60 0RF clindamycin HCl 300 mg Capsule 600 mg PO Q8H Qty: 0 0RF Discharge Instructions Additional Instructions: Patient leaving AMA, reminded to come back if she felt like hurting herself. At this time she denies suicidal ideation at this time. Discharge Orders Discharge Orders: Discharge Order (Routine); Ordered 01/07/23 Ordered By: Estelita Perla Discharge Data Discharge Date/Time-TO BE ENTERED AT DEPARTURE: 01/07/23 12:00 DS: Summary Time Spent with Patient providing and/or coordinating discharge services: Greater than 30 minutes Status at Discharge Functional status at discharge: independent ambulation Overall status at discharge: patient is progressing back to baseline Mental Status: mental status grossly normal Speech and Movement: restless Mood: anxious mood Affect: anxious affect Exam Narrative Exam Narrative: General: Anxious and tremulous middle-aged unkempt female HEENT: EOMI, MMM Heart: not auscultated Lungs: nonlabored breathing Abdomen: not visibly distended Extremities: 3+ BLE edema with multiple healing scabs Psych Mental Status: mental status grossly normal Speech and Movement: restless Mood: anxious mood Affect: anxious affect DS: Data Vitals/I&O Vitals and I&O: Vital Signs Temperature 37.4 C 01/07/23 08:04 Temperature Source Tympanic 01/07/23 08:04 Pulse 49 L 01/07/23 11:00 Pulse Rhythm Regular 01/06/23 19:48 Pulse 54 L 01/07/23 11:01 Respiratory Rate 15 01/07/23 11:01 Respiratory Effort Normal, Non-Labored 01/07/23 08:04 Respiratory Depth Normal 01/07/23 08:04 Respiratory Pattern Normal 01/07/23 08:04 Blood Pressure 160/90 H 01/07/23 11:00 Blood Pressure Mean 107 01/07/23 11:00 Blood Pressure Position Sitting 01/07/23 08:04 Pulse Oximetry 98 01/07/23 10:10 Oxygen Delivery Method Room Air 01/07/23 08:04 Oxygen Flow Rate 0 01/07/23 08:04 Pain Level 9 01/07/23 09:27 Comment Pt is stating she really isnt feeling well. BP is high and heart rate is low. 01/06/23 15:22 Intake & Output 01/06/23 01/07/23 01/07/23 23:59 11:59 23:59 Intake Total 488.334 / 488.334 150 / 150 Output Total 1650 / 1650 3000 / 3000 Balance -1161.666 / -1161.666 -2850 / -2850 Weight 49.89 kg Intake: IV 138.334 / 138.334 Oral 350 / 350 150 / 150 Output: Urine 1650 / 1650 3000 / 3000 Other: Urine Color Yellow Urine Appearance Clear Clear Urine Odor Normal None Comment multiple voids overnight Voiding Methods Bedside Commode Bedside Commode Data Completed and Pending Completed studies during hospitalization [Text1]: CT head w/o contrast: No acute intracranial findings on this noninfused CT scan of the brain. Paranasal sinus findings as above. Labs on day of discharge: Labs from last 24 hours 01/07/23 01/07/23 01/07/23 09:00 07:45 05:35 WBC Cancelled RBC Cancelled Hgb Cancelled Hct Cancelled MCV Cancelled MCH Cancelled MCHC Cancelled RDW Cancelled Plt Count Cancelled MPV Cancelled Immature Gran % Cancelled Neutrophils % Cancelled Band Neutrophils % Cancelled Lymphocytes % Cancelled Atypical Lymphs % Cancelled Monocytes % Cancelled Eosinophils % Cancelled Basophils % Cancelled Metamyelocytes % Cancelled Myelocytes % Cancelled Promyelocytes % Cancelled Other Cells % Cancelled Nucleated RBC % Cancelled Absolute Neutrophils Cancelled Absolute Lymphocytes Cancelled Absolute Monocytes Cancelled Absolute Eosinophils Cancelled Absolute Basophils Cancelled RBC Morphology Cancelled Polychromasia Cancelled Hypochromasia Cancelled Poikilocytosis Cancelled Basophilic Stippling Cancelled Anisocytosis Cancelled Microcytosis Cancelled Macrocytosis Cancelled Spherocytes Cancelled Tear Drop Cells Cancelled Ovalocytes Cancelled Stomatocytes Cancelled [place] Bodies Cancelled [place] Cells/Echinocytes Cancelled Acanthocytes (Spur) Cancelled Schistocytes Cancelled Sodium 139 Potassium 4.3 Chloride 100 Carbon Dioxide 29.4 Anion Gap 9.6 BUN 11 Creatinine 1.0 Est GFR (CKD-EPI 2020) 70.80 Glucose 120 H Calcium 9.4 Total Bilirubin 0.5 AST 22 ALT 19 Alkaline Phosphatase 157 H Troponin I < 50 Total Protein 9.0 H Albumin 2.9 L Urine Color Urine Clarity Urine pH Ur Specific [place] Urine Protein Urine Ketones Urine Blood Urine Nitrite Urine Bilirubin Urine Urobilinogen Ur Leukocyte Esterase Urine Glucose Urine HCG, Qual Salicylates Urine Opiates Screen Urine Methadone Screen Acetaminophen Ur Barbiturates Screen Ur Tricyclics Screen Ur Amphetamines Screen U Benzodiazepines Scrn Urine Cocaine Screen Ur THC Screen COVID-19 Source Nasal/Nares SARS-CoV-2 (PCR) Negative HIV 1&2 Ag/Ab, 4th Gen Add-On Test Request 01/06/23 01/06/23 01/06/23 Unknown Unknown 18:06 WBC RBC Hgb Hct MCV MCH MCHC RDW Plt Count MPV Immature Gran % Neutrophils % Band Neutrophils % Lymphocytes % Atypical Lymphs % Monocytes % Eosinophils % Basophils % Metamyelocytes % Myelocytes % Promyelocytes % Other Cells % Nucleated RBC % Absolute Neutrophils Absolute Lymphocytes Absolute Monocytes Absolute Eosinophils Absolute Basophils RBC Morphology Polychromasia Hypochromasia Poikilocytosis Basophilic Stippling Anisocytosis Microcytosis Macrocytosis Spherocytes Tear Drop Cells Ovalocytes Stomatocytes [place] Bodies [place] Cells/Echinocytes Acanthocytes (Spur) Schistocytes Sodium Potassium Chloride Carbon Dioxide Anion Gap BUN Creatinine Est GFR (CKD-EPI 2020) Glucose Calcium Total Bilirubin AST ALT Alkaline Phosphatase Troponin I Total Protein Albumin Urine Color Yellow Urine Clarity Clear Urine pH 7.0 Ur Specific [place] 1.020 Urine Protein Negative Urine Ketones Negative Urine Blood Negative Urine Nitrite Negative Urine Bilirubin Negative Urine Urobilinogen 0.2 Ur Leukocyte Esterase Negative Urine Glucose Negative Urine HCG, Qual Salicylates Urine Opiates Screen Urine Methadone Screen Acetaminophen Ur Barbiturates Screen Ur Tricyclics Screen Ur Amphetamines Screen U Benzodiazepines Scrn Urine Cocaine Screen Ur THC Screen COVID-19 Source SARS-CoV-2 (PCR) HIV 1&2 Ag/Ab, 4th Gen Cancelled Add-On Test Request Pending 01/06/23 01/06/23 01/06/23 18:06 18:06 17:10 WBC RBC Hgb Hct MCV MCH MCHC RDW Plt Count MPV Immature Gran % Neutrophils % Band Neutrophils % Lymphocytes % Atypical Lymphs % Monocytes % Eosinophils % Basophils % Metamyelocytes % Myelocytes % Promyelocytes % Other Cells % Nucleated RBC % Absolute Neutrophils Absolute Lymphocytes Absolute Monocytes Absolute Eosinophils Absolute Basophils RBC Morphology Polychromasia Hypochromasia Poikilocytosis Basophilic Stippling Anisocytosis Microcytosis Macrocytosis Spherocytes Tear Drop Cells Ovalocytes Stomatocytes [place] Bodies [place] Cells/Echinocytes Acanthocytes (Spur) Schistocytes Sodium Potassium Chloride Carbon Dioxide Anion Gap BUN Creatinine Est GFR (CKD-EPI 2020) Glucose Calcium Total Bilirubin AST ALT Alkaline Phosphatase Troponin I < 50 Total Protein Albumin Urine Color Urine Clarity Urine pH Ur Specific [place] Urine Protein Urine Ketones Urine Blood Urine Nitrite Urine Bilirubin Urine Urobilinogen Ur Leukocyte Esterase Urine Glucose Urine HCG, Qual Negative Salicylates Urine Opiates Screen Negative Urine Methadone Screen Negative Acetaminophen Ur Barbiturates Screen Negative Ur Tricyclics Screen Negative Ur Amphetamines Screen Negative U Benzodiazepines Scrn Positive A Urine Cocaine Screen Positive A Ur THC Screen Positive A COVID-19 Source SARS-CoV-2 (PCR) HIV 1&2 Ag/Ab, 4th Gen Add-On Test Request 01/06/23 01/06/23 01/06/23 17:10 17:10 17:10 WBC 6.51 RBC 4.12 Hgb 10.0 L Hct 32.7 L MCV 79 L MCH 24.3 L MCHC 30.6 L RDW 17.3 H Plt Count 596 H MPV 8.2 Immature Gran % 0.5 Neutrophils % 66.5 Band Neutrophils % Lymphocytes % 27.3 Atypical Lymphs % Monocytes % 3.8 Eosinophils % 1.4 Basophils % 0.5 Metamyelocytes % Myelocytes % Promyelocytes % Other Cells % Nucleated RBC % 0.0 Absolute Neutrophils 4.33 Absolute Lymphocytes 1.78 Absolute Monocytes 0.25 Absolute Eosinophils 0.09 Absolute Basophils 0.03 RBC Morphology Polychromasia Hypochromasia Poikilocytosis Basophilic Stippling Anisocytosis Microcytosis Macrocytosis Spherocytes Tear Drop Cells Ovalocytes Stomatocytes [place] Bodies [place] Cells/Echinocytes Acanthocytes (Spur) Schistocytes Sodium 137 Potassium 4.7 Chloride 101 Carbon Dioxide 30.8 Anion Gap 5.2 BUN 17 Creatinine 1.0 Est GFR (CKD-EPI 2020) 70.80 Glucose 94 Calcium 9.0 Total Bilirubin 0.3 AST 47 H ALT 22 Alkaline Phosphatase 160 H Troponin I Total Protein 8.1 Albumin 2.6 L Urine Color Urine Clarity Urine pH Ur Specific [place] Urine Protein Urine Ketones Urine Blood Urine Nitrite Urine Bilirubin Urine Urobilinogen Ur Leukocyte Esterase Urine Glucose Urine HCG, Qual Salicylates 3.2 Urine Opiates Screen Urine Methadone Screen Acetaminophen < 2 Ur Barbiturates Screen Ur Tricyclics Screen Ur Amphetamines Screen U Benzodiazepines Scrn Urine Cocaine Screen Ur THC Screen COVID-19 Source SARS-CoV-2 (PCR) HIV 1&2 Ag/Ab, 4th Gen Add-On Test Request 01/06/23 18:30 Blood Blood Culture - Pending Preliminary micro results at discharge 01/06/23 18:30 Blood Culture - Pending Blood PFSH All Active Problems (Updated 01/07/23 @ 12:49 by Estelita Perla MD) Cocaine withdrawal (Acute) Opioid withdrawal (Acute) Hypertensive urgency (Acute) Suicidal ideation (Acute) Discharge planning issues (Acute) Cellulitis of right ankle (Acute) Homeless (Acute) Abscess of skin of right ankle (Acute) At risk for suicide (Acute) Cellulitis of right leg (Acute) IVDU (intravenous drug user) (Acute) Hepatitis C virus infection without hepatic coma (Chronic) Foreign body of neck (Acute) Right side Numbness of left hand (Acute) 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) Bilateral leg weakness (Acute) Smoker (Acute 09/16/13) 0.5 PPD, working with Marianne Michael Amphetamine abuse, episodic (Acute 11/14/16) Relapse: Adderal fall 2015 until 10/17/16: Isauro Iraheta identified Attention deficit hyperactivity disorder (ADHD), combined type (Acute 04/23/17) updating diagnosis from ADHD unspecified; screen 03/2017; h/o prior rx Dr [place]; counselor Isauro Iraheta, consult Dr Manuel Anemia (Chronic) Transaminitis (Acute) Neuropathy (Acute) Oral contraception initial prescription (Acute 08/05/11) Opioid dependence on agonist therapy (Acute 06/18/05) Prior dilaudid, heroin, etc.; INDUCTION AT SUBSTANCE TREATMENT 06/2005 ON REFERRAL FROM [facility], COUNSELOR: Isauro Iraheta; MAT team begun 12/2015; problem 11/14/16 (amphetamine use) Opioid dependence, continuous (Acute 06/18/05) INDUCTION AT SUBSTANCE TREATMENT 06/2005 ON REFERRAL FROM [facility], COUNSELLOR: WILLIE Smith [facility]; problematic episode 04/2012 (ritalin misuse) Depressive disorder (Acute 05/22/05) SCREEN ADHD, [facility] RX; Denisse Sethi [id number] Anxiety disorder (Acute 08/05/11) ?? ADD PIECE: [facility] EVAL 08/2011 Adjustment disorder, unspecified (Acute 03/03/16) Medical History Anxiety Depression Opiate dependence Polysubstance abuse Surgical History History of dilatation and curettage Family History Father Alcohol abuse Mother No problems noted. Maternal Grandmother Breast cancer Paternal Grandfather Colorectal cancer Maternal Grandfather Larynx cancer Social History Smoking/Tobacco Use Status: Current every day Tobacco Type: cigarettes Smoking risk assessment performed?: Yes Alcohol Intake: former Drug use: Daily Substance use type: marijuana, heroin, amphetamines, sedatives, IV drugs and other Details: wellbutrin Adopted: No Foster care: Yes Household members: significant other Housing: homeless Number of Children: 3 current occupation: Former [employer] Pets and animals: Yes Seatbelt use: always Helmet use: Yes Drive intox or ride w/intox utility driver: No Working smoke detector in home: Yes Fire extinguisher in home: Yes Carbon monox detector in home: Yes Firearms in home: No Do you feel safe at home: Yes Do you feel safe in your relationship?: Yes Victim of physical abuse: No Victim of emotional abuse: No Victim of sexual abuse: No Additional Social history: 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 Lost [employer] license. Has 3 kids in foster care. Time Spent with Patient Time Spent with Patient: <45 minutes Time was spent: preparing to see the patient(eg.review tests), [facility] and[facility]or [facility], ordering medications,tests, procedures, referring, communicating with other health spiritual care coordinator, indepentently interpreting results, counseling the patient and care coordination
--- NOTE | 2023-01-07 14:57 | CMDISCH_ITS ---
Date of service: 01/07/23 Time of Service: 14:58 LACE Index Scoring Tool Questions: Length of Stay (in days): 1 Was the patient admitted via the E.D.?: Yes E.D. Visits: 4 Answers: Total Score: 8 Risk of Readmission: Low Risk Care Management Discharge Plan Reason for Hospitalization: Depression, SI Discharge Plan: Alannah left AMA this morning. attempted to intervene, and she minimally engaged, and agreed to stay. [facility], met with her in person, and she agreed to stay for voluntary inpatient psychiatric treatment. Marianne stated that she will not be held involuntarily, as her decision to leave was related to substance use. Marianne confirmed that Alannah does not have access to lethal means, as she previously stated that she had access to a gun. Ultimately, she left against medical advice. Patient/Family Education Needs: Review discharge instructions and limitations, discussion of self care needs including ask me three.
[2023-01-07 15:57] LABS: Lab Add On Test DONE
== END 2023-01-07 12:00 | disposition left against medical advice (07) | DRG 305 ==
LOC: ER 01-06 11:24 → MS 01-06 12:05 → ICU 01-06 21:25
PROVIDERS: Hospitalist; Nurse Practitioner Family; Admitting Provider Internal Medicine; Emergency Provider Student in an Organized Health Care Education/Training Program; Visit Provider Internal Medicine
DX: I16.0 Hypertensive urgency (principal); F11.23 Opioid dependence with withdrawal; R45.851 Suicidal ideations; L03.115 Cellulitis of right lower limb; F14.13 Cocaine abuse, unspecified with withdrawal; B19.20 Unspecified viral hepatitis C without hepatic coma; F41.9 Anxiety disorder, unspecified; F32.A Depression, unspecified; R07.89 Other chest pain; R51.9 Headache, unspecified; F14.129 Cocaine abuse with intoxication, unspecified; Z59.00 Homelessness unspecified; G62.2 Polyneuropathy due to other toxic agents; F17.210 Nicotine dependence, cigarettes, uncomplicated; R53.1 Weakness; R20.2 Paresthesia of skin; F90.2 Attention-deficit hyperactivity disorder, combined type; D64.9 Anemia, unspecified; R74.01 Elevation of levels of liver transaminase levels; F12.90 Cannabis use, unspecified, uncomplicated; F15.90 Other stimulant use, unspecified, uncomplicated; I89.0 Lymphedema, not elsewhere classified
CPT/HCPCS: 36415; 80053; 80307; 81025; 87040; 87635; 99285; H0046; 70450; 80329; 81003; 84484; 85025; 93005; 93010; 99238; J0360; J3490

== ENCOUNTER 2023-02-13 15:29 | Outpatient (REF) | payer MEDICAID, SELFPAY ==
[2023-02-15 13:07] LABS: Chlamydia Result Negative (Negative); GC Result Negative (Negative)
== END 2023-02-13 15:30 | disposition home or self-care (01) ==
LOC: LBN 15:29
PROVIDERS: Visit Provider Physician Assistant Medical
DX: N89.8 Other specified noninflammatory disorders of vagina (principal); Z11.3 Encounter for screening for infections with a predominantly sexual mode of transmission
CPT/HCPCS: 87491; 87591; 87480; 87510; 87660

== ENCOUNTER 2024-05-27 14:23 | Outpatient (REF) | payer MEDICAID, SELFPAY ==
[2024-05-30 12:26] LABS: Fentanyl Scr w/Rfx Confirm Positive ng/mL (<1)
[2024-05-31 09:47] LABS: Fentanyl Confirmation 25 ng/mL (<2); Norfentanyl Confirmation >200 ng/mL (<10)
[2024-05-31 13:06] LABS: Cocaine 5605 ng/mL (Cutoff: 50); Cocaine Interpretation Positive.
[2024-06-02 00:45] LABS: 2-OH-Ethyl-Flurazepam Negative ng/mL (Cutoff: 10); 7-NH-Clonazepam Negative ng/mL (Cutoff: 10); 7-NH-Flunitrazepam Negative ng/mL (Cutoff: 10); Alpha OH-Alprazolam Negative ng/mL (Cutoff: 10); Alpha-OH Midazolam Negative ng/mL (Cutoff: 10); Alpha-OH-Triazolam Negative ng/mL (Cutoff: 10); Alprazolam Negative ng/mL (Cutoff: 10); Benzodiazepines Interpretation Negative.; Chlordiazepoxide Negative ng/mL (Cutoff: 10); Clobazam Negative ng/mL (Cutoff: 10); Clonazepam Negative ng/mL (Cutoff: 10); Diazepam Negative ng/mL (Cutoff: 10); Flurazepam Negative ng/mL (Cutoff: 10); Lorazepam Negative ng/mL (Cutoff: 10); Midazolam Negative ng/mL (Cutoff: 10); N-Desmethylclobazam Negative ng/mL (Cutoff: 10); Prazepam Negative ng/mL (Cutoff: 10); Temazepam Negative ng/mL (Cutoff: 10); Triazolam Negative ng/mL (Cutoff: 10); Zolpidem Carboxylic acid Negative ng/mL (Cutoff: 10)
== END 2024-05-27 14:24 | disposition home or self-care (01) ==
LOC: NCHCN 14:23
PROVIDERS: Visit Provider Family Medicine
DX: F11.20 Opioid dependence, uncomplicated (principal)
CPT/HCPCS: 80307; 80354; 80346; 80353

== ENCOUNTER 2024-06-10 12:58 | Outpatient (REF) | payer MEDICAID, SELFPAY ==
[2024-06-14 12:57] LABS: Benzoylecgonine 65326 ng/mL (Cutoff: 50); Cocaine 18598 ng/mL (Cutoff: 50); Cocaine Interpretation Positive.
[2024-06-16 12:46] LABS: Amphetamine 5699 ng/mL (Cutoff: 25); Amphetamines Interpretation Positive.; MDA (Ecstasy Metabolite) Negative ng/mL (Cutoff: 25); MDMA (Ecstasy) Negative ng/mL (Cutoff: 25); Phentermine Negative ng/mL (Cutoff: 25); Pseudoephedrine/Ephedrine Negative ng/mL (Cutoff: 25)
== END 2024-06-10 12:59 | disposition home or self-care (01) ==
LOC: NCHCN 12:58
PROVIDERS: PCP Family Medicine; Visit Provider Family Medicine
DX: Z79.899 Other long term (current) drug therapy (principal); F11.20 Opioid dependence, uncomplicated
CPT/HCPCS: 80324; 80353